=== PATIENT | female | born 1990 | race Caucasian/White ===

== ENCOUNTER 2020-08-30 08:43 | Outpatient (REF) | payer OTHER, SELFPAY | END 2020-08-30 08:44 | disposition home or self-care (01) | LOC: HO.LAB 08:43 | PROVIDERS: PCP Internal Medicine; Referring Provider Internal Medicine; Visit Provider Obstetrics & Gynecology | DX: Z01.419 Encounter for gynecological examination (general) (routine) without abnormal findings (principal); N63.0 Unspecified lump in unspecified breast | CPT/HCPCS: 88142 ==

== ENCOUNTER 2020-09-12 12:11 | Outpatient (REF) | payer OTHER, SELFPAY ==
--- NOTE | 2020-09-12 12:18 | US_ITS ---
EXAMINATION: US DIAGNOSTIC ULTRASOUND BREAST, RIGHT CLINICAL INFORMATION: 29-year-old with chronic stable palpable fullness upper outer right breast dime/rachel size. No known family history breast cancer. No discharge. No prior breast imaging. COMPARISON: None. TECHNIQUE: Ultrasound right breast is targeted to the area of clinical concern. Patient is able to point to the area right upper outer quadrant at time of imaging. Grayscale imaging and color Doppler are performed without and with harmonics. FINDINGS: There is no focal suspicious finding. There is no cystic or solid mass, architectural abnormality, duct ectasia, or edema in the soft tissue planes. Results are discussed with the patient at time of visit. US/US breast RT limited IMPRESSION: Normal study. ASSESSMENT: BI-RADS 1: Negative RECOMMENDATION: 1. Patient should be managed based on the clinical impression. If clinically indicated, further evaluation may be considered with surgical consult. Decision to proceed with biopsy should be based on clinical grounds and degree of clinical concern. 2. Otherwise, routine annual screening mammography, age 40, or earlier as clinical risk factors warrant. This patient's information was entered into a reminder system with a target due date for their next mammogram.
== END 2020-09-12 12:12 | disposition home or self-care (01) ==
LOC: HO.MAMMO 12:11
PROVIDERS: PCP Internal Medicine; Visit Provider Obstetrics & Gynecology
DX: N63.11 Unspecified lump in the right breast, upper outer quadrant (principal)
CPT/HCPCS: 76642; 99202

== ENCOUNTER → 2020-11-13 12:26 | Outpatient (BNVA) | payer OTHER, SELFPAY | PROVIDERS: PCP Internal Medicine; Visit Provider Obstetrics & Gynecology ==

== ENCOUNTER 2020-11-25 13:05 | Emergency (ER) | payer OTHER, SELFPAY ==
[2020-11-25 13:30] VITALS: BP 143/84; PULSE 82; RESP 16; TEMP 36.7; O2SAT 97; BMI 41.9
[2020-11-25 14:15] LABS: Glucose Urine UA NEG (NEG); Leukocyte Esterase Urine NEG (NEG); Nitrite Urine NEG (NEG); Urine Blood NEG (NEG); Urine Ketones NEG (NEG); Urine Protein NEG (NEG-TRACE)
[2020-11-25 14:17] LABS: Appearance Urine CLEAR; Color Urine YELLOW
[2020-11-25 14:18] LABS: UPreg QC Valid YES; Urine Pregnancy NEGATIVE (NEGATIVE)
[2020-11-25 14:29] LABS: RBC Urine 0-2 /HPF (0); Squamous Epithelial Cell Urine 1+ /LPF; WBC Urine 0 /HPF (0-4)
[2020-11-25 15:44] VITALS: BP 129/75; PULSE 76; RESP 18; TEMP 36.8; O2SAT 99
--- NOTE | 2020-11-25 15:44 | CT_ITS ---
EXAMINATION: CT ABDOMEN AND PELVIS WITH CONTRAST CLINICAL INFORMATION: Right lower quadrant pain. Question appendicitis versus ectopic . COMPARISON: CT abdomen 06/03/2012. Ultrasound pelvis earlier today, 11/25/2020. TECHNIQUE: Multidetector volumetric images were obtained from the superior aspect of the liver through the pubic symphysis following administration 85 mL of Omnipaque 350 intravenous contrast. Sagittal and coronal reformatted images were obtained on the technologist's workstation. Oral Contrast: No. This CT examination was performed using dose optimization techniques as appropriate, variously including the following: *Automated exposure control. *Adjustment of mA and/or kV according to patient size (this includes techniques or standardized protocols for targeted exams where dose is matched to indication/reason for exam; i.e. extremities or head). *Use of iterative reconstruction technique. DLP: 922 mGy-cm FINDINGS: LUNG BASES: The visualized lung bases are unremarkable. LIVER, GALLBLADDER, AND BILIARY TREE: No focal lesions. No biliary duct dilatation. Gallbladder appears unremarkable. PANCREAS: Homogeneous enhancement. No inflammatory changes. No ductal dilatation. SPLEEN: Unremarkable. ADRENAL GLANDS: Unremarkable. KIDNEYS AND URETERS: Homogeneous enhancement. No renal or ureteral calculi. No hydronephrosis. Small hypodense left renal midpole lesion, too small to characterize. BLADDER: Unremarkable. GASTROINTESTINAL TRACT: No bowel obstruction. No colonic wall thickening or pericolonic inflammatory changes. Stomach is partially distended. Appendix appears unremarkable. ABDOMINAL WALL: Small fat-containing umbilical hernia. LYMPH NODES: No lymphadenopathy seen. VASCULAR: Normal caliber aorta. Portal vein is enhancing. PELVIC VISCERA: A 3.8 x 3.2 cm left adnexal/ovarian cyst, better evaluated on the pelvic ultrasound obtained today. Trace free fluid in the pelvis. Uterus within normal limits for CT. OSSEOUS STRUCTURES: No acute osseous or suspicious osseous abnormality. CT/CT abdomen pelvis w con IMPRESSION: 1. No acute findings identified in the abdomen or pelvis. Appendix appears unremarkable. Etiology of the patient's symptoms has not been determined by CT. 2. Left ovarian/adnexal 3.8 x 3.2 cm cyst. This is better evaluated by ultrasound earlier today, see the ultrasound report. 3. Small left renal midpole hypodense lesion, too small to characterize, statistically likely to be a cyst.
--- NOTE | 2020-11-25 15:44 | US_ITS ---
US PELVIS COMPLETE WITH DOPPLER CLINICAL INFORMATION: 30-year-old female patient with right lower quadrant abdominal pain. LMP 09/19/2020. COMPARISON: Ultrasound exams of the pelvis in August 2019 and September 2019. TECHNIQUE: Transabdominal and endovaginal imaging was performed. Study performed with grayscale, color and spectral Doppler. FINDINGS: PELVIC ULTRASOUND: The anteverted uterus is of normal size and echogenicity measuring 9.1 x 3.7 x 4.6 cm. A regular homogeneous endometrium is identified measuring 0.8 cm. Secretory phase of the menstrual cycle. The right ovary is normal in size and echo appearance. The right ovary measures 2.5 x 1.7 x 1.8 cm for a volume of 4.0 mL. The left ovary contains an ovoid complex cyst showing a lacelike appearance. This cyst measures 3.7 x 2.7 x 3.4 cm. In toto, the left ovary measures 4.8 x 4.6 x 3.2 cm for a volume of 37 mL. There is a small amount of free fluid adjacent to the left ovary. No free fluid in cul-de-sac. PELVIC DOPPLER: Normal color and spectral Doppler flow is demonstrated in the bilateral ovaries with arterial and venous waveforms identified. US/US transvaginal IMPRESSION: Normal right ovary. A 3.7 cm hemorrhagic cyst in the left ovary.
--- NOTE | 2020-11-25 15:44 | US_ITS ---
US PELVIS COMPLETE WITH DOPPLER CLINICAL INFORMATION: 30-year-old female patient with right lower quadrant abdominal pain. LMP 09/19/2020. COMPARISON: Ultrasound exams of the pelvis in August 2019 and September 2019. TECHNIQUE: Transabdominal and endovaginal imaging was performed. Study performed with grayscale, color and spectral Doppler. FINDINGS: PELVIC ULTRASOUND: The anteverted uterus is of normal size and echogenicity measuring 9.1 x 3.7 x 4.6 cm. A regular homogeneous endometrium is identified measuring 0.8 cm. Secretory phase of the menstrual cycle. The right ovary is normal in size and echo appearance. The right ovary measures 2.5 x 1.7 x 1.8 cm for a volume of 4.0 mL. The left ovary contains an ovoid complex cyst showing a lacelike appearance. This cyst measures 3.7 x 2.7 x 3.4 cm. In toto, the left ovary measures 4.8 x 4.6 x 3.2 cm for a volume of 37 mL. There is a small amount of free fluid adjacent to the left ovary. No free fluid in cul-de-sac. PELVIC DOPPLER: Normal color and spectral Doppler flow is demonstrated in the bilateral ovaries with arterial and venous waveforms identified. US/US pelvic complete IMPRESSION: Normal right ovary. A 3.7 cm hemorrhagic cyst in the left ovary.
--- NOTE | 2020-11-25 15:44 | US_ITS ---
US PELVIS COMPLETE WITH DOPPLER CLINICAL INFORMATION: 30-year-old female patient with right lower quadrant abdominal pain. LMP 09/19/2020. COMPARISON: Ultrasound exams of the pelvis in August 2019 and September 2019. TECHNIQUE: Transabdominal and endovaginal imaging was performed. Study performed with grayscale, color and spectral Doppler. FINDINGS: PELVIC ULTRASOUND: The anteverted uterus is of normal size and echogenicity measuring 9.1 x 3.7 x 4.6 cm. A regular homogeneous endometrium is identified measuring 0.8 cm. Secretory phase of the menstrual cycle. The right ovary is normal in size and echo appearance. The right ovary measures 2.5 x 1.7 x 1.8 cm for a volume of 4.0 mL. The left ovary contains an ovoid complex cyst showing a lacelike appearance. This cyst measures 3.7 x 2.7 x 3.4 cm. In toto, the left ovary measures 4.8 x 4.6 x 3.2 cm for a volume of 37 mL. There is a small amount of free fluid adjacent to the left ovary. No free fluid in cul-de-sac. PELVIC DOPPLER: Normal color and spectral Doppler flow is demonstrated in the bilateral ovaries with arterial and venous waveforms identified. US/US pelvic ovarian doppler IMPRESSION: Normal right ovary. A 3.7 cm hemorrhagic cyst in the left ovary.
--- NOTE | 2020-11-25 16:07 | PC.NURSE ---
US called and wanted to take the patient immediately otherwise oncall staff would need to be called in, patient went to us, will do line and labs when she returns
--- NOTE | 2020-11-25 16:26 | ED.ABDPAIN ---
HPI - Abdominal Pain General Chief Complaint: Abdominal Pain Stated Complaint: abd pain Time Seen by Provider: 11/25/20 15:38 Source: patient Mode of arrival: ambulatory Limitations: no limitations History of Present Illness HPI narrative: 30yoF c PMHx of ectopic c partial Right sided salpingectomy in 08/2019 presenting to the ED c c/o RLQ abd pain since this morning and missed menstrual period since August 2020. She reports she took progesterone therapy because she has not had a menstrual period since late August. She reports she took 5 home test which were negative. Reports that she also had outpatient blood work that someone she works with who is a doctor ordered for her which include a serum quant and was also negative. Denies any fevers, chills, chest pain, shortness of breath, nausea/vomiting, upper abdominal pain, back pain, dysuria, hematuria, abnormal vaginal discharge, diarrhea or constipation or any other symptoms complaints or concerns at this time. MD elicited complaint: abdominal pain Pertinent past history: other (Ectopic c partial Right sided salpingectomy in 08/2019 ) Onset (ago): day(s) (Today) Pain Consistency: constant Location: RLQ Related Data Previous Rx's Medication Instructions Recorded medroxyprogesterone 10 mg tablet 10 mg PO daily 5 Days #5 tab 11/13/20 acetaminophen-codeine 1 tab PO Q8H PRN #10 tab 11/25/20 ibuprofen 800 mg PO Q8H PRN #14 tab 11/25/20 Allergies Allergy/AdvReac Type Severity Reaction Status Date / Time No Known Allergies Allergy Verified 11/25/20 13:41 [No Known Allergies*] Review of Systems Review of Systems Constitutional : No Weight loss, No Fever, No Chills, No Night Sweats, No Fatigue, NoMalaise ENT/Mouth: No ear pain, No sore throat, No Difficulty swallowing Cardiovascular : No Chest Pain, No SOB, No Dyspnea on Exertion, No Orthopnea, NoEdema, No Palpitations Respiratory : No Cough, No Sputum, No Wheezing, No Dyspnea Gastrointestinal : + Abdominal pain, No Nausea, No Vomiting, No Diarrhea, No Hematochezia, No Melena Genitourinary : + Missed menstrual period, No irregular bleeding, No Dysuria, No Urinary Frequency, No Hematuria,No Urinary Incontinence, No Urgency, No Flank Pain Musculoskeletal : No joint pain, No Myalgias, No Joint Swelling Skin : No Skin Lesions, No rash Neuro : No Weakness, No Numbness, No Paresthesias, No Loss of Consciousness, NoDizziness, No Headache Psych : No Social Issues, Heme/Lymph: No Bruising, No Bleeding,No Lymphadenopathy Endocrine : No Polyuria, No Polydipsia, No Temperature Intolerance Yes all other systems are reviewed and are negative Physical Exam Vital Signs: Vital Signs: Last Vital Signs Temp 98.2 F 11/25/20 18:05 Pulse 84 11/25/20 18:05 Resp 18 11/25/20 18:05 BP 118/63 11/25/20 18:05 Pulse Ox 98 11/25/20 18:05 Body Mass Index 41.9 vital signs have been reviewed as normal and appeared to be correct. Blood pressure normal. Heart rate normal. Respiration rate normal. Temperature normal. Oxygen saturation normal. Appearance: Alert. Oriented X3. No acute distress. Head: Normal external exam. Normocephalic. Eyes: PERRLA. EOMI. Conjunctiva and sclera normal. Eyelids normal. ENT: Pharynx normal. Uvula midline. Moist mucous membranes. Neck: Normal inspection. Neck supple. FROM. No adenopathy. No meningeal signs. CVS: Normal heart rate and rhythm. Heart sound normal. No murmurs noted. Pulses normal throughout. Respiratory: No respiratory distress. Painless inspiration. Breath sounds normal. No wheezes/rales/rhonchi noted. Chest nontender. No accessory muscle usage noted or decreased air movement noted. Abdomen: Soft and tenderness to palpation to right lower quadrant/suprapubic area.. Nondistended. No guarding. No rigidity. Bowel sounds normal in all 4 quadrants. No distention noted. No organomegaly noted. No visible injury noted. No rebound tenderness. Negative Rovsing sign. Negative obturator's sign. Negative psoas sign. Negative Scales sign. Back: No CVA tenderness. Full range of motion noted. Skin: Skin warm and dry. Normal skin color. Normal skin turgor. No rashes/lesions/lacerations noted. Extremities: Extremities exhibit normal range of motion. Extremities nontender. Neuro: Oriented X 3. No motor deficit. No sensory deficit. Reflexes normal. Course Course Course Narrative: 15:38pm - 30yoF c PMHx of ectopic c partial Right sided salpingectomy in 08/2019 presenting to the ED c c/o RLQ abd pain since this morning and missed menstrual period since August 2020 - Concern for appy vs ovarian torsion vs ectopic - Pln: Labs, CT scan of abd/pelvis c IV contrast, Ovarian/pelvic/transvaginal US, UA, UHCG then re-evaluate. Reevaluation(s) Reevaluation #1: - white blood cell count [id number] Otherwise all other labs within normal limits. UA within normal limits no evidence of UTI. UHCG negative for . Serum quant negative for . COVID/RSV/flu negative. Pelvic/transvaginal/Doppler ultrasound revealed normal color and Doppler flow to bilateral ovaries therefore not consistent with ovarian torsion. Normal right ovary. 3.7 cm hemorrhagic cyst in the left ovary. Otherwise no other acute processes noted. CT scan of abdomen and pelvis with IV contrast revealed the left ovarian cyst and small left renal cyst therefore I printed out the CT scan and ultrasound results and given to the patient explained to her all her results. Otherwise her appendix was unremarkable and the rest of the CT scan was unremarkable unknown cause of the patient's right lower quadrant abdominal pain. - will DC home with symptomatic treatment along with instructions return if any new or worsening symptoms to follow up with primary care provider. Patient understands agrees the plan. Time: 19:31 MDM - Abdominal Pain Medical Records Attestation: I reviewed the patient's medical records. Lab Data Attestation: I reviewed the patient's lab results. Result diagrams: 11/25/20 16:28 11/25/20 16:28 Labs: Lab Results 11/25/20 11/25/20 11/25/20 Range/Units 13:40 13:40 16:28 WBC 11.7 H (4.8-10.8) X10*3/uL RBC 4.41 (4.20-5.50) X10*6/uL Hgb 13.7 (12.0-16.0) g/dl Hct 40.7 (37-47) % MCV 92.3 (80-98) fL MCH 31.1 (27.0-33.0) pg MCHC 33.7 (31.0-35.0) g/dl RDW 12.0 (11.0-16.0) % Plt Count 264 (160-400) X10*3/uL MPV 9.7 (9.4-12.3) fL Immature Gran % (Auto) 0.2 (0.0-0.4) % Neut % (Auto) 62.1 (45-73) % Lymph % (Auto) 29.7 (20-40) % [place] % (Auto) 6.8 (2-11) % Eos % (Auto) 0.9 (0-4) % Baso % (Auto) 0.3 (0-2) % Lymph # (Auto) 3.5 (1.2-4.9) X10*3/uL [place] # (Auto) 0.8 (0.1-1.2) X10*3/uL Eos # (Auto) 0.1 (0.0-0.4) X10*3/uL Baso # (Auto) 0.0 (0.0-0.2) X10*3/uL Abs Immat Gran (auto) 0.02 (0.00-0.03) X10*3/uL Absolute Neuts (auto) 7.3 (2.0-8.3) X10*3/uL Absolute Nucleated RBC 0.000 (0.0-0.012) X10*3/uL Nucleated RBC % (auto) 0.0 (0.0-0.2) /100WBC PT (10.8-13.0) SEC INR (0.9-1.1) Sodium (135-145) mmol/L Potassium (3.3-5.1) mmol/L Chloride (96-108) mmol/L Carbon Dioxide (22-29) mmol/L Anion Gap (12-20) BUN (9-16) mg/dL Creatinine (0.5-1.4) mg/dL Estim Creat Clear Calc Estimated GFR Random Glucose (60-115) mg/dL Calcium (8.4-10.2) mg/dL Magnesium (1.6-2.6) mg/dL Total Bilirubin (0.0-1.0) mg/dL Direct Bilirubin (0.0-0.5) mg/dL AST (5-31) U/L ALT (0-31) U/L Alkaline Phosphatase (39-117) U/L Total Protein (6.5-8.0) g/dL Albumin (3.5-5.0) g/dL Beta HCG, Quant mIU/mL Urine Color YELLOW Urine Appearance CLEAR Urine pH 7.0 (5.0-8.0) Ur Specific [place] 1.020 (1.005-1.025) Urine Protein NEG (NEG-TRACE) MG/DL Urine Glucose (UA) NEG (NEG) MG/DL Urine Ketones NEG (NEG) MG/DL Urine Blood NEG (NEG) Urine Nitrite NEG (NEG) Ur Leukocyte Esterase NEG (NEG) Urine RBC 0-2 (0) /HPF Urine WBC 0 (0-4) /HPF Ur Squamous Epith Cells 1+ /LPF Urine Bacteria NONE /LPF Urine Test NEGATIVE (NEGATIVE) Coronavirus (PCR) (Negative) Influenza Type A (PCR) (Negative) Influenza Type B (PCR) (Negative) RSV RNA Qual (PCR) (Negative) 11/25/20 11/25/20 11/25/20 Range/Units 16:28 16:28 16:28 WBC (4.8-10.8) X10*3/uL RBC (4.20-5.50) X10*6/uL Hgb (12.0-16.0) g/dl Hct (37-47) % MCV (80-98) fL MCH (27.0-33.0) pg MCHC (31.0-35.0) g/dl RDW (11.0-16.0) % Plt Count (160-400) X10*3/uL MPV (9.4-12.3) fL Immature Gran % (Auto) (0.0-0.4) % Neut % (Auto) (45-73) % Lymph % (Auto) (20-40) % [place] % (Auto) (2-11) % Eos % (Auto) (0-4) % Baso % (Auto) (0-2) % Lymph # (Auto) (1.2-4.9) X10*3/uL [place] # (Auto) (0.1-1.2) X10*3/uL Eos # (Auto) (0.0-0.4) X10*3/uL Baso # (Auto) (0.0-0.2) X10*3/uL Abs Immat Gran (auto) (0.00-0.03) X10*3/uL Absolute Neuts (auto) (2.0-8.3) X10*3/uL Absolute Nucleated RBC (0.0-0.012) X10*3/uL Nucleated RBC % (auto) (0.0-0.2) /100WBC PT 14.5 H (10.8-13.0) SEC INR 1.2 H (0.9-1.1) Sodium 137 (135-145) mmol/L Potassium 3.6 (3.3-5.1) mmol/L Chloride 102 (96-108) mmol/L Carbon Dioxide 26 (22-29) mmol/L Anion Gap 13 (12-20) BUN 12 (9-16) mg/dL Creatinine 0.68 (0.5-1.4) mg/dL Estim Creat Clear Calc 159.5 Estimated GFR > 60 Random Glucose 89 (60-115) mg/dL Calcium 8.9 (8.4-10.2) mg/dL Magnesium 1.9 (1.6-2.6) mg/dL Total Bilirubin 0.6 (0.0-1.0) mg/dL Direct Bilirubin 0.2 (0.0-0.5) mg/dL AST 18 (5-31) U/L ALT 19 (0-31) U/L Alkaline Phosphatase 85 (39-117) U/L Total Protein 7.7 (6.5-8.0) g/dL Albumin 3.9 (3.5-5.0) g/dL Beta HCG, Quant < 2 mIU/mL Urine Color Urine Appearance Urine pH (5.0-8.0) Ur Specific [place] (1.005-1.025) Urine Protein (NEG-TRACE) MG/DL Urine Glucose (UA) (NEG) MG/DL Urine Ketones (NEG) MG/DL Urine Blood (NEG) Urine Nitrite (NEG) Ur Leukocyte Esterase (NEG) Urine RBC (0) /HPF Urine WBC (0-4) /HPF Ur Squamous Epith Cells /LPF Urine Bacteria /LPF Urine Test (NEGATIVE) Coronavirus (PCR) (Negative) Influenza Type A (PCR) (Negative) Influenza Type B (PCR) (Negative) RSV RNA Qual (PCR) (Negative) 11/25/20 Range/Units 16:29 WBC (4.8-10.8) X10*3/uL RBC (4.20-5.50) X10*6/uL Hgb (12.0-16.0) g/dl Hct (37-47) % MCV (80-98) fL MCH (27.0-33.0) pg MCHC (31.0-35.0) g/dl RDW (11.0-16.0) % Plt Count (160-400) X10*3/uL MPV (9.4-12.3) fL Immature Gran % (Auto) (0.0-0.4) % Neut % (Auto) (45-73) % Lymph % (Auto) (20-40) % [place] % (Auto) (2-11) % Eos % (Auto) (0-4) % Baso % (Auto) (0-2) % Lymph # (Auto) (1.2-4.9) X10*3/uL [place] # (Auto) (0.1-1.2) X10*3/uL Eos # (Auto) (0.0-0.4) X10*3/uL Baso # (Auto) (0.0-0.2) X10*3/uL Abs Immat Gran (auto) (0.00-0.03) X10*3/uL Absolute Neuts (auto) (2.0-8.3) X10*3/uL Absolute Nucleated RBC (0.0-0.012) X10*3/uL Nucleated RBC % (auto) (0.0-0.2) /100WBC PT (10.8-13.0) SEC INR (0.9-1.1) Sodium (135-145) mmol/L Potassium (3.3-5.1) mmol/L Chloride (96-108) mmol/L Carbon Dioxide (22-29) mmol/L Anion Gap (12-20) BUN (9-16) mg/dL Creatinine (0.5-1.4) mg/dL Estim Creat Clear Calc Estimated GFR Random Glucose (60-115) mg/dL Calcium (8.4-10.2) mg/dL Magnesium (1.6-2.6) mg/dL Total Bilirubin (0.0-1.0) mg/dL Direct Bilirubin (0.0-0.5) mg/dL AST (5-31) U/L ALT (0-31) U/L Alkaline Phosphatase (39-117) U/L Total Protein (6.5-8.0) g/dL Albumin (3.5-5.0) g/dL Beta HCG, Quant mIU/mL Urine Color Urine Appearance Urine pH (5.0-8.0) Ur Specific [place] (1.005-1.025) Urine Protein (NEG-TRACE) MG/DL Urine Glucose (UA) (NEG) MG/DL Urine Ketones (NEG) MG/DL Urine Blood (NEG) Urine Nitrite (NEG) Ur Leukocyte Esterase (NEG) Urine RBC (0) /HPF Urine WBC (0-4) /HPF Ur Squamous Epith Cells /LPF Urine Bacteria /LPF Urine Test (NEGATIVE) Coronavirus (PCR) NEGATIVE (Negative) Influenza Type A (PCR) NEGATIVE (Negative) Influenza Type B (PCR) NEGATIVE (Negative) RSV RNA Qual (PCR) NEGATIVE (Negative) Imaging Data Ovarian/transvaginal/Doppler ultrasound: Attestation: I personally reviewed and interpreted this imaging study as follows: Radiologist's impression: FINDINGS: PELVIC ULTRASOUND: The anteverted uterus is of normal size and echogenicity measuring 9.1 x 3.7 x 4.6 cm. A regular homogeneous endometrium is identified measuring 0.8 cm. Secretory phase of the menstrual cycle. The right ovary is normal in size and echo appearance. The right ovary measures 2.5 x 1.7 x 1.8 cm for a volume of 4.0 mL. The left ovary contains an ovoid complex cyst showing a lacelike appearance. This cyst measures 3.7 x 2.7 x 3.4 cm. In toto, the left ovary measures 4.8 x 4.6 x 3.2 cm for a volume of 37 mL. There is a small amount of free fluid adjacent to the left ovary. No free fluid in cul-de-sac. PELVIC DOPPLER: Normal color and spectral Doppler flow is demonstrated in the bilateral ovaries with arterial and venous waveforms identified. US/US transvaginal IMPRESSION: Normal right ovary. A 3.7 cm hemorrhagic cyst in the left ovary. ct scan of abd/pelvis c IV : Attestation: I personally reviewed and interpreted this imaging study as follows: Radiologist's impression: FINDINGS: LUNG BASES: The visualized lung bases are unremarkable. LIVER, GALLBLADDER, AND BILIARY TREE: No focal lesions. No biliary duct dilatation. Gallbladder appears unremarkable. PANCREAS: Homogeneous enhancement. No inflammatory changes. No ductal dilatation. SPLEEN: Unremarkable. ADRENAL GLANDS: Unremarkable. KIDNEYS AND URETERS: Homogeneous enhancement. No renal or ureteral calculi. No hydronephrosis. Small hypodense left renal midpole lesion, too small to characterize. BLADDER: Unremarkable. GASTROINTESTINAL TRACT: No bowel obstruction. No colonic wall thickening or pericolonic inflammatory changes. Stomach is partially distended. Appendix appears unremarkable. ABDOMINAL WALL: Small fat-containing umbilical hernia. LYMPH NODES: No lymphadenopathy seen. VASCULAR: Normal caliber aorta. Portal vein is enhancing. PELVIC VISCERA: A 3.8 x 3.2 cm left adnexal/ovarian cyst, better evaluated on the pelvic ultrasound obtained today. Trace free fluid in the pelvis. Uterus within normal limits for CT. OSSEOUS STRUCTURES: No acute osseous or suspicious osseous abnormality. CT/CT abdomen pelvis w con IMPRESSION: 1. No acute findings identified in the abdomen or pelvis. Appendix appears unremarkable. Etiology of the patient's symptoms has not been determined by CT. 2. Left ovarian/adnexal 3.8 x 3.2 cm cyst. This is better evaluated by ultrasound earlier today, see the ultrasound report. 3. Small left renal midpole hypodense lesion, too small to characterize, statistically likely to be a cyst. Critical Care Time Critical Care Time Critical Care Time: Yes Total Critical Care Time: 60 Attestation: I personally attest to this time spent taking care of the patient Discharge Plan Discharge Clinical Impression: Renal cyst, Hemorrhagic cyst of ovary, Amenorrhea Patient Disposition: Home, Self-Care Instructions: Ovarian Cyst (ED), Kidney Cyst (ED), Ruptured Ovarian Cyst (ED), Ovarian Cyst Removal (DC) Prescriptions: New ibuprofen 800 mg tablet 800 mg PO Q8H PRN (Reason: pain) Qty: 14 RF: 0 acetaminophen-codeine 300-30 mg tablet 1 tab PO Q8H PRN (Reason: pain) Qty: 10 RF: 0 No Action medroxyprogesterone [Provera] 10 mg tablet 10 mg PO daily 5 Days Qty: 5 RF: 0 Referrals: Blaine Ascencio MD [Physician] - 2 days (Kidney cyst) Bernice Valdovinos MD [Physician] - 2 days (Ovarian cyst) Stand Alone Forms: Work/School Release Print Language: [place] [facility] Past Medical History Attestation statement: The following information was validated with the patient. Medical History , ectopic, tubal Surgical History History of salpingectomy Family History Family History Maternal Grandmother Uterine cancer Maternal Grandfather Prostate cancer metastatic to bone Social History Social History Alcohol intake: current Alcohol intake frequency: holidays/special occasions only Smoking Status: Never smoker Use of substances other than those prescribed or required for medical reasons: No Advance Directives: No Advance Directives Information Provided: Yes Sexual orientation: Straight/Heterosexual Gender identity: female
[2020-11-25] MEDS: 0.9 % Sodium Chloride 1,000 ML 999 ML IVCONT (16:30)
--- NOTE | 2020-11-25 16:31 | PC.NURSE ---
iv inserted, labs drawn, pt medicated per order, will continue to monitor.
[2020-11-25 16:35] LABS: Basophils Percent Auto 0.3 % (0-2); Eosinophils Absolute Auto 0.1 X10*3/uL (0.0-0.4); Eosinophils Percent Auto 0.9 % (0-4); Hematocrit 40.7 % (37-47); Hemoglobin 13.7 g/dl (12.0-16.0); Imm Gran Abs Auto 0.02 X10*3/uL (0.00-0.03); Imm Gran Pct Auto 0.2 % (0.0-0.4); Lymphocytes Absolute Auto 3.5 X10*3/uL (1.2-4.9); Lymphocytes Percent Auto 29.7 % (20-40); MANUAL DIFF FLAG NO; Mean Corpuscular HGB Conc 33.7 g/dl (31.0-35.0); Mean Corpuscular Hemoglobin 31.1 pg (27.0-33.0); Mean Corpuscular Volume 92.3 fL (80-98); Mean Platelet Volume 9.7 fL (9.4-12.3); Monocytes Absolute Auto 0.8 X10*3/uL (0.1-1.2); Monocytes Percent Auto 6.8 % (2-11); Neutrophils Absolute Auto 7.3 X10*3/uL (2.0-8.3); Neutrophils Percent Auto 62.1 % (45-73); Platelet Count 264 X10*3/uL (160-400); Red Blood Count 4.41 X10*6/uL (4.20-5.50); White Blood Count 11.7 X10*3/uL (4.8-10.8)
[2020-11-25 16:43] LABS: INTERNATIONAL NORM RATIO 1.2 (0.9-1.1); Prothrombin Time 14.5 SEC (10.8-13.0)
[2020-11-25 16:57] LABS: Alanine Aminotransferase 19 U/L (0-31); Albumin Level 3.9 g/dL (3.5-5.0); Alkaline Phosphatase 85 U/L (39-117); Anion Gap 13 (12-20); Aspartate Amino Transferase 18 U/L (5-31); Bilirubin Direct 0.2 mg/dL (0.0-0.5); Bilirubin Total 0.6 mg/dL (0.0-1.0); Blood Urea Nitrogen 12 mg/dL (9-16); Calcium 8.9 mg/dL (8.4-10.2); Carbon Dioxide 26 mmol/L (22-29); Chloride 102 mmol/L (96-108); Creatinine Clr Calc Pharmacy 159.5; Estimated Glomerular Filt Rate > 60; Glucose Random 89 mg/dL (60-115); Magnesium 1.9 mg/dL (1.6-2.6); Potassium 3.6 mmol/L (3.3-5.1); Sodium 137 mmol/L (135-145); Total Protein 7.7 g/dL (6.5-8.0)
[2020-11-25 17:00] LABS: HCG Quantitative < 2 mIU/mL
[2020-11-25 17:14] LABS: Influenza A PCR NEGATIVE (Negative); Influenza B PCR NEGATIVE (Negative); Resp Syncy Virus RNA Qual PCR NEGATIVE (Negative); SARS COV2 PCR INHOUSE NEGATIVE (Negative)
[2020-11-25 18:05] VITALS: BP 118/63; PULSE 84; RESP 18; TEMP 36.8; O2SAT 98
== END 2020-11-25 19:57 | disposition home or self-care (01) ==
PROVIDERS: Physician Assistant Medical; Emergency Provider Emergency Medicine; PCP Internal Medicine
DX: Q61.01 Congenital single renal cyst (principal); N83.202 Unspecified ovarian cyst, left side; N91.2 Amenorrhea, unspecified; Z20.822 Contact with and (suspected) exposure to COVID-19
CPT/HCPCS: 0241U; 36415; 74177; 76830; 76856; 80048; 80076; 81001; 81025; 83735; 84702; 85025; 85610; 93975; 96360; 99284; 99291

== ENCOUNTER → 2020-11-27 10:34 | Outpatient (BNVA) | payer OTHER, SELFPAY | PROVIDERS: PCP Internal Medicine; Visit Provider Obstetrics & Gynecology ==

== ENCOUNTER 2020-12-07 17:22 | Outpatient (REF) | payer OTHER, SELFPAY ==
[2020-12-07 18:37] LABS: HCG Quantitative < 2 mIU/mL
[2020-12-07 19:07] LABS: Thyroid Stimulating Hormone 1.99 uIU/mL (0.32-4.0)
[2020-12-08 07:48] LABS: Prolactin 6.9 ng/mL
[2020-12-08 09:22] LABS: CA-125 8 U/mL (<35)
== END 2020-12-07 17:23 | disposition home or self-care (01) ==
LOC: HO.LAB 17:22
PROVIDERS: PCP Internal Medicine; Visit Provider Obstetrics & Gynecology
DX: N83.299 Other ovarian cyst, unspecified side (principal); N91.2 Amenorrhea, unspecified
CPT/HCPCS: 36415; 84146; 84443; 84702; 86304

== ENCOUNTER 2020-12-13 14:07 | Outpatient (REF) | payer OTHER, SELFPAY ==
[2020-12-13 14:56] LABS: Influenza A PCR NEGATIVE (Negative); Influenza B PCR NEGATIVE (Negative); Resp Syncy Virus RNA Qual PCR NEGATIVE (Negative); SARS COV2 PCR INHOUSE NEGATIVE (Negative)
== END 2020-12-13 14:08 | disposition home or self-care (01) ==
LOC: HO.LNP 14:07
PROVIDERS: Visit Provider Internal Medicine
DX: R05 Cough (principal); Z20.822 Contact with and (suspected) exposure to COVID-19
CPT/HCPCS: 0241U

== ENCOUNTER → 2020-12-20 11:50 | Outpatient (BNVA) | payer OTHER, SELFPAY | PROVIDERS: PCP Internal Medicine; Visit Provider Obstetrics & Gynecology ==

== ENCOUNTER 2021-02-26 10:53 | Outpatient (REF) | payer OTHER, SELFPAY ==
--- NOTE | ~2021-02-26 | US_ITS ---
EXAMINATION: ULTRASOUND PELVIS COMPLETE CLINICAL INFORMATION: Ovarian cyst. COMPARISON: CT abdomen and pelvis with contrast 11/25/2020 TECHNIQUE: Transabdominal and transvaginal ultrasound pelvis is performed. FINDINGS: The uterus is anteverted measuring 9.5 cm in length, 3.8 cm in AP and 5.0 cm in transverse dimension. Endometrial thickness is 0.7 cm. Right ovary measures 3.0 2.1 x 2.1 cm and volume 6.9 mL. Multiple small ovarian follicles. Previously right ovary measured 2.5 x 1.7 x 1.8 cm and volume 4.0 mL. The left ovary measures 2.2 x 2.6 x 2.0 cm and volume 8.7 mL. There are multiple small follicles seen. Previously left ovary measured 4.8 x 4.6 x 3.2 cm and volume 37.0 mL. There is no free fluid in cul-de-sac. US/US pelvic complete IMPRESSION: Unremarkable uterus. Multiple bilateral small ovarian follicles visualized.
--- NOTE | ~2021-02-26 | US_ITS ---
EXAMINATION: ULTRASOUND PELVIS COMPLETE CLINICAL INFORMATION: Ovarian cyst. COMPARISON: CT abdomen and pelvis with contrast 11/25/2020 TECHNIQUE: Transabdominal and transvaginal ultrasound pelvis is performed. FINDINGS: The uterus is anteverted measuring 9.5 cm in length, 3.8 cm in AP and 5.0 cm in transverse dimension. Endometrial thickness is 0.7 cm. Right ovary measures 3.0 2.1 x 2.1 cm and volume 6.9 mL. Multiple small ovarian follicles. Previously right ovary measured 2.5 x 1.7 x 1.8 cm and volume 4.0 mL. The left ovary measures 2.2 x 2.6 x 2.0 cm and volume 8.7 mL. There are multiple small follicles seen. Previously left ovary measured 4.8 x 4.6 x 3.2 cm and volume 37.0 mL. There is no free fluid in cul-de-sac. US/US transvaginal IMPRESSION: Unremarkable uterus. Multiple bilateral small ovarian follicles visualized.
== END 2021-02-26 10:54 | disposition home or self-care (01) ==
LOC: HO.US 10:53
PROVIDERS: Visit Provider Obstetrics & Gynecology
DX: N83.299 Other ovarian cyst, unspecified side (principal)
CPT/HCPCS: 76830; 76856

== ENCOUNTER → 2021-03-06 11:46 | Outpatient (BNVA) | payer OTHER, SELFPAY | PROVIDERS: Visit Provider Obstetrics & Gynecology ==

== ENCOUNTER 2021-05-30 12:42 | Outpatient (REF) | payer OTHER, SELFPAY ==
[2021-05-30 15:35] LABS: Syphilis Screen Nonreactive (Nonreactive)
[2021-05-31 00:37] LABS: CT PCR NOT DETECTED (Not Detect.); NG PCR NOT DETECTED (Not Detect.)
[2021-05-31 08:45] LABS: HBsAGNum1 0.14 S/CO (0.00-0.99); HIV AB/AG Nonreactive (Nonreactive); HIV Num 1 0.04 S/CO (0.00-0.99); Hepatitis B Surface Antigen Negative (Negative); ~HepC Num1 0.23 S/CO (0.00-0.79); ~Hepatitis C Antibody Nonreactive (Nonreactive)
[2021-05-31 09:03] LABS: BV Int Neg Control Negative (Negative); BV Int Pos Control Positive (Positive)
== END 2021-05-30 12:43 | disposition home or self-care (01) ==
LOC: HO.LAB 12:42
PROVIDERS: PCP Internal Medicine; Visit Provider Advanced Practice Midwife
DX: Z30.09 Encounter for other general counseling and advice on contraception (principal); Z20.2 Contact with and (suspected) exposure to infections with a predominantly sexual mode of transmission
CPT/HCPCS: 36415; 86780; 86803; 87340; 87389; 87480; 87491; 87510; 87591; 87660; 99212

== ENCOUNTER 2021-06-03 14:15 | Emergency (ER) | payer OTHER, SELFPAY ==
--- NOTE | ~2021-06-03 | XR_ITS ---
EXAMINATION: XR CHEST CLINICAL INFORMATION: Cough, COVID positive. COMPARISON: None TECHNIQUE: Portable AP upright view of the chest was obtained. FINDINGS: The cardiac silhouette is not enlarged. Mediastinum is normal in appearance. The right lung is clear. On the left side, there could be a subtle opacity in the left retrocardiac region. No pleural effusion. No pneumothorax. XR/XR chest 1V IMPRESSION: Possible subtle opacity in the left lower lobe retrocardiac region which could reflect early changes of covid 19 pneumonia or other infection/atelectasis.
[2021-06-03 17:32] VITALS: BP 109/71; PULSE 91; RESP 24; TEMP 37.1; O2SAT 94; BMI 38.7
--- NOTE | 2021-06-03 17:42 | ED.GENADULT ---
HPI - General Adult General Chief complaint: Dizziness Stated complaint: covid positive not feeling well Time Seen by Provider: 06/03/21 17:41 Source: patient Mode of arrival: ambulatory Limitations: no limitations History of Present Illness HPI narrative: Patient diagnosed with COVID 5 days ago been feeling sick weak tired vomiting multiple times unable to eat much feel dizzy slight cough most significant shortness of breath or fever no abdominal pain no diarrhea Related Data Previous Rx's Medication Instructions Recorded acetaminophen 300 mg-codeine 30 mg 1 tab PO Q8H PRN #10 tab 11/25/20 tablet ibuprofen 800 mg tablet 800 mg PO Q8H PRN #14 tab 11/25/20 desogestrel 0.15 mg-ethinyl 1 tab PO DAILY #28 tab 05/07/21 estradiol 0.03 mg tablet (Apri) Allergies Allergy/AdvReac Type Severity Reaction Status Date / Time No Known Allergies Allergy Verified 05/30/21 11:27 [No Known Allergies*] Review of Systems Review of Systems: Yes all other systems are reviewed and are negative PMFSH Past Medical History Medical History , ectopic, tubal Surgical History History of salpingectomy Family History Family History Maternal Grandmother Uterine cancer Maternal Grandfather Prostate cancer metastatic to bone Social History Social History Alcohol intake: current Alcohol intake frequency: holidays/special occasions only Advance Directives: No Advance Directives Information Provided: No Patient : No Sexual orientation: Straight/Heterosexual Gender identity: female Physical Exam Vital Signs: Vital Signs: Last Vital Signs Temp 98.8 F 06/03/21 18:51 Pulse 78 06/03/21 18:51 Resp 20 06/03/21 18:51 BP 125/78 06/03/21 18:51 Pulse Ox 97 06/03/21 18:51 Body Mass Index 38.7 Appearance: Alert. Oriented X3. No acute distress. Eyes: PERRLA, No Nystagmus ENT: Pharynx normal. Oral Mucosa moist Neck: Normal inspection. Neck supple. CVS: Normal heart rate and rhythm. Pulses normal. Respiratory: No respiratory distress. Equal air entry bilateral, no wheezing/rales/rhonchi Abdomen: Soft and nontender. Bowel sounds are present, no mass palpable, no CVA tenderness Skin: Skin warm and dry. Normal skin color. Normal skin turgor. Extremities: No lower extremity edema. No calf tenderness Neuro: Oriented X 3. Medical Decision Making MDM Narrative Medical decision making narrative: Patient COVID-19 infection no significant abdominal pain came for vomiting lab showed WBC count of 2.9 platelet count 158 K bilirubin 0.4 AST 163 ALT 218. Patient has no abdominal pain or right upper quadrant. Elevated LFT likely from COVID infection. Patient advised to follow with PCP to repeat labs and next 2-3 days Lab Data Lab results reviewed: Yes I reviewed the patient's lab results. Result diagrams: 06/03/21 17:40 06/03/21 17:40 Labs: Lab Results 06/03/21 06/03/21 Range/Units 17:40 17:40 WBC 2.9 L (4.8-10.8) X10*3/uL RBC 4.66 (4.20-5.50) X10*6/uL Hgb 14.4 (12.0-16.0) g/dl Hct 42.0 (37-47) % MCV 90.1 (80-98) fL MCH 30.9 (27.0-33.0) pg MCHC 34.3 (31.0-35.0) g/dl RDW 11.8 (11.0-16.0) % Plt Count 158 L D (160-400) X10*3/uL MPV 10.3 (9.4-12.3) fL Immature Gran % (Auto) 0.0 (0.0-0.4) % Neut % (Auto) 59.0 (45-73) % Lymph % (Auto) 28.5 (20-40) % [place] % (Auto) 12.5 H (2-11) % Eos % (Auto) 0.0 (0-4) % Baso % (Auto) 0.0 (0-2) % Lymph # (Auto) 0.8 L (1.2-4.9) X10*3/uL [place] # (Auto) 0.4 (0.1-1.2) X10*3/uL Eos # (Auto) 0.0 (0.0-0.4) X10*3/uL Baso # (Auto) 0.0 (0.0-0.2) X10*3/uL Abs Immat Gran (auto) 0.00 (0.00-0.03) X10*3/uL Absolute Neuts (auto) 1.7 L (2.0-8.3) X10*3/uL Absolute Nucleated RBC 0.000 (0.0-0.012) X10*3/uL Nucleated RBC % (auto) 0.0 (0.0-0.2) /100WBC Sodium 132 L (135-145) mmol/L Potassium 4.1 (3.3-5.1) mmol/L Chloride 100 (96-108) mmol/L Carbon Dioxide 21 L (22-29) mmol/L Anion Gap 15 (12-20) BUN 9 (9-16) mg/dL Creatinine 0.83 (0.5-1.4) mg/dL Estim Creat Clear Calc 124.9 Estimated GFR > 60 Random Glucose 97 (60-115) mg/dL Calcium 8.2 L D (8.4-10.2) mg/dL Total Bilirubin 0.4 (0.0-1.0) mg/dL AST 163 H (5-31) U/L ALT 218 H (0-31) U/L Alkaline Phosphatase 109 D (39-117) U/L Total Protein 8.0 (6.5-8.0) g/dL Albumin 3.8 (3.5-5.0) g/dL Discharge Plan Discharge Clinical Impression: COVID-19, Elevated LFTs Patient Disposition: Home, Self-Care Instructions: COVID-19 (Coronavirus Disease 2019) (ED) Additional Instructions: Drink plenty of fluids Medicine for nausea as advised You have elevated liver enzymes do not drink alcohol or take Tylenol See her PCP in next 2- 3 days to have recheck your labs Prescriptions: No Action desogestrel-ethinyl estradiol [Apri] 0.15-0.03 mg tablet 1 tab PO DAILY Qty: 28 RF: 2 ibuprofen 800 mg tablet 800 mg PO Q8H PRN (Reason: pain) Qty: 14 RF: 0 acetaminophen-codeine 300-30 mg tablet 1 tab PO Q8H PRN (Reason: pain) Qty: 10 RF: 0 Interventions: ED Discharge Assessment Last Done: 06/03/21 19:24 Discharge Date/Time: 06/03/21 19:25
[2021-06-03 17:46] LABS: MANUAL DIFF FLAG NO
[2021-06-03 18:00] LABS: Hemoglobin 14.4 g/dl (12.0-16.0); Lymphocytes Absolute Auto 0.8 X10*3/uL (1.2-4.9); Lymphocytes Percent Auto 28.5 % (20-40); Mean Corpuscular HGB Conc 34.3 g/dl (31.0-35.0); Mean Corpuscular Hemoglobin 30.9 pg (27.0-33.0); Mean Corpuscular Volume 90.1 fL (80-98); Mean Platelet Volume 10.3 fL (9.4-12.3); Monocytes Absolute Auto 0.4 X10*3/uL (0.1-1.2); Monocytes Percent Auto 12.5 % (2-11); Neutrophils Absolute Auto 1.7 X10*3/uL (2.0-8.3); Platelet Count 158 X10*3/uL (160-400); Red Blood Count 4.66 X10*6/uL (4.20-5.50); Red Cell Distribution Width 11.8 % (11.0-16.0); White Blood Count 2.9 X10*3/uL (4.8-10.8)
[2021-06-03] MEDS: 0.9 % Sodium Chloride 1,000 ML 999 ML IV (18:00)
[2021-06-03 18:11] LABS: Alanine Aminotransferase 218 U/L (0-31); Albumin Level 3.8 g/dL (3.5-5.0); Alkaline Phosphatase 109 U/L (39-117); Anion Gap 15 (12-20); Aspartate Amino Transferase 163 U/L (5-31); Bilirubin Total 0.4 mg/dL (0.0-1.0); Blood Urea Nitrogen 9 mg/dL (9-16); Calcium 8.2 mg/dL (8.4-10.2); Carbon Dioxide 21 mmol/L (22-29); Chloride 100 mmol/L (96-108); Creatinine Clr Calc Pharmacy 124.9; Estimated Glomerular Filt Rate > 60; Glucose Random 97 mg/dL (60-115); Potassium 4.1 mmol/L (3.3-5.1); Sodium 132 mmol/L (135-145)
[2021-06-03] MEDS: dexAMETHasone sod phosphate 4 MG/ML VIAL 6 MG IVPUSH (18:50)
[2021-06-03 18:51] VITALS: BP 125/78; PULSE 78; RESP 20; TEMP 37.1; O2SAT 97
== END 2021-06-03 19:25 | disposition home or self-care (01) ==
PROVIDERS: Emergency Provider Internal Medicine; PCP Internal Medicine
DX: U07.1 COVID-19 (principal); R79.89 Other specified abnormal findings of blood chemistry; R42 Dizziness and giddiness
CPT/HCPCS: 36415; 71045; 80053; 85025; 96361; 96374; 96375; 99284; J1100; J2405

== ENCOUNTER → 2021-06-05 11:25 | Outpatient (BNVA) | payer OTHER, SELFPAY | PROVIDERS: Visit Provider Obstetrics & Gynecology ==

== ENCOUNTER 2021-06-07 11:22 | Inpatient (IN) | payer OTHER, SELFPAY ==
[2021-06-07] VITALS (12 sets, daily range): BP systolic 100–120; BP diastolic 57–80; PULSE 75–111; RESP 15–32; TEMP 37–39.6; O2SAT 89–97; BMI 39.9
--- NOTE | ~2021-06-07 | XR_ITS ---
EXAMINATION: XR CHEST CLINICAL INFORMATION: Weakness COMPARISON: June 03, 2021 TECHNIQUE: AP portable view of the chest was obtained. FINDINGS: Patient has developed bilateral patchy regions of interstitial and airspace disease. No pneumothorax or pleural effusion. Heart normal size. No evidence of pulmonary edema. XR/XR chest 1V IMPRESSION: Development of diffuse bilateral interstitial and airspace disease which may be related to Covid 19 or infectious process such as viral or atypical pneumonitis.
--- NOTE | ~2021-06-07 | CT_ITS ---
EXAMINATION: CT ANGIOGRAM OF THE CHEST WITH AND WITHOUT CONTRAST (CT PULMONARY ANGIOGRAM FOR PE) CLINICAL INFORMATION: Reason for Exam + COVID, SOB, r/o PE COMPARISON: Chest radiographs 06/07/2021, 06/03/2021 TECHNIQUE: Prior to contrast administration, noncontrast localization images were obtained. Subsequently, multidetector volumetric imaging was performed from the thoracic inlet to below the diaphragms following the administration of 65 mL Omnipaque 350 intravenous contrast. Sagittal, coronal, and MIP oblique sagittal reformatted images were obtained on the CT workstation, uploaded to PACS, and reviewed. This CT examination was performed using dose optimization techniques as appropriate, variously including the following: *Automated exposure control *Adjustment of mA and/or kV according to patient size (this includes techniques or standardized protocols for targeted exams where dose is matched to indication/reason for exam; i.e. extremities or head) *Use of iterative reconstruction technique Total exam dose-length product 326 mGy-cm FINDINGS: QUALITY OF STUDY/CONTRAST BOLUS: Satisfactory. PULMONARY ARTERIES: No central or segmental pulmonary emboli. THORACIC AORTA: No aneurysm or dissection. LUNG: There are scattered bilateral patchy geographic shape groundglass and consolidative opacities along the bronchovascular bundles and some peripherally. Involvement is somewhat greater on the left. There is no lobar airspace consolidation. No cavitary lesion. The central airways are clear and there is no endobronchial lesion or bronchiectasis. PLEURA: No pleural effusion or pneumothorax. MEDIASTINUM: Normal heart size. No pericardial effusion. No hilar or mediastinal lymphadenopathy. No evidence of septal bowing or right heart strain. CHEST WALL/AXILLA: No axillary or internal mammary lymphadenopathy. OSSEOUS STRUCTURES: No acute or suspicious osseous abnormality. UPPER ABDOMEN: Unremarkable. No reflux of contrast into the hepatic veins to suggest elevated right heart pressures. CT/CT angio chest PE protocol IMPRESSION: 1. No pulmonary embolism. No thoracic aortic dissection. 2. Bilateral patchy geographic groundglass and consolidative opacities consistent with recent chest radiograph and the history of COVID pneumonia. No bronchiectasis, pneumothorax, cavitary lesion, or effusion. VTE: negative
--- NOTE | 2021-06-07 11:57 | ECG_ITS ---
Test Reason : WEAKNESS Blood Pressure : / mmHG Vent. Rate : 110 BPM Atrial Rate : 110 BPM P-R Int : 122 ms QRS Dur : 078 ms QT Int : 320 ms P-R-T Axes : 028 034 000 degrees QTc Int : 433 ms Sinus tachycardia Otherwise normal ECG No previous ECGs available Referred By: Valorie Hummel Electronically Signed By:RUBIO CHOUDHURY MD
--- NOTE | 2021-06-07 12:03 | ED_ITS ---
HPI - General Adult General Chief complaint: Weakness Stated complaint: covid +, syncope Time Seen by Provider: 06/07/21 11:48 Source: patient and EMS Mode of arrival: EMS Limitations: no limitations History of Present Illness HPI narrative: 30-year-old female currently COVID positive here with complaints of continued fevers, lightheadedness with syncopal episodes at home, cough, vomiting, generalized weakness, shortness of breath. Patient was diagnosed with COVID on May 30. Subsequently she was seen here in the emergency department on June 03 for COVID symptoms(weakness, malaise, vomiting, dizzy, cough). She had labs which showed mildly elevated AST and ALT. She was sent home with recommendations to take ibuprofen and Zofran as needed. Patient tells me continued symptoms. Feels unsafe at home as she lives alone. No chest pain. Complaining of bilateral leg achiness with no calf pain reported. Related Data Home Medications Medication Instructions Recorded Confirmed cholecalciferol (vitamin D3) 25 25 mcg PO DAILY 06/07/21 06/07/21 mcg (1,000 unit) tablet (Vitamin D3) ibuprofen 600 mg tablet 1 tab PO TID PRN 06/07/21 06/07/21 ondansetron HCl 4 mg tablet 4 mg PO Q6H PRN 06/07/21 06/07/21 (Zofran) zinc 50 mg tablet 50 mg PO DAILY 06/07/21 06/07/21 Previous Rx's Medication Instructions Recorded desogestrel 0.15 mg-ethinyl 1 tab PO DAILY #28 tab 06/04/21 estradiol 0.03 mg tablet (Apri) Allergies Allergy/AdvReac Type Severity Reaction Status Date / Time No Known Allergies Allergy Verified 05/30/21 11:27 [No Known Allergies*] Review of Systems Review of Systems: Yes all other systems are reviewed and are negative Constitutional: Constitutional: Reports no additional constitutional compla ints, Reports body ache(s), Reports chills, Denies fever(s), Denies headache(s) and Reports weakness Eyes: Eyes: Reports no additional eye complaints and Denies change in vision ENT: Reports system reviewed and no additional complaints, except as documented, Reports dizziness, Denies headache(s), Denies nasal congestion, Denies nasal discharge and Denies neck pain Cardiovascular: Cardiovascular: Reports no additional cardiovascular complaints, Denies chest pain, Reports syncope, Denies leg edema and Reports dyspnea Respiratory: Respiratory: Reports no additional respiratory complaints, Reports cough and Reports dyspnea Gastrointestinal: Gastrointestinal: Reports no additional gastrointestinal complaints, Denies abdominal pain, Denies diarrhea, Reports nausea and Reports vomiting Genitourinary: Genitourinary: Reports no additional female genitourinary complaints and Denies urinary incontinence Musculoskeletal: Musculoskeletal: Reports no additional musculoskeletal complaints, Denies back pain, Denies arthralgias, Denies joint swelling, Denies neck pain, Denies numbness and Denies tingling Integumentary/Breasts: Skin/Breast: Reports system reviewed and no additional complaints, except as docu and Denies rash Neurologic: Reports system reviewed and no additional complaints, except as documented, Denies Abnormal speech present, Reports dizziness, Reports syncope, Denies headache(s), Denies numbness, Denies tingling and Reports weakness PMFSH Past Medical History Attestation statement: The following information was validated with the patient. Source: old records reviewed and nursing notes reviewed Medical History , ectopic, tubal Surgical History History of salpingectomy Family History Family History Maternal Grandmother Uterine cancer Maternal Grandfather Prostate cancer metastatic to bone Social History Social History Alcohol intake: never Patient Tobacco Use Status: Never used Tobacco Use of substances other than those prescribed or required for medical reasons: No Advance Directives: No Advance Directives Information Provided: No Patient : No Sexual orientation: Straight/Heterosexual Gender identity: female Physical Exam Vital Signs: Vital Signs: Last Vital Signs Temp 98.7 F 06/07/21 15:30 Pulse 83 06/07/21 15:30 Resp 25 H 06/07/21 15:30 BP 103/62 06/07/21 15:30 Pulse Ox 94 06/07/21 15:30 Body Mass Index 39.9 Const: General: cooperative, healthy appearing, comfortable and no acute distress Orientation/consciousness: patient oriented x3 Limitations: no limitations HENMT: Head: Yes normal to inspection Ears: hearing grossly normal bilaterally General nose exam: Normal external nose present Face and sinus: Yes normal facial exam Mouth: Normal oral and palatal mucosa present Throat: Yes posterior oropharynx normal Eyes: General: appearance normal, both eyes and all related structures Pupils: Equal, round and reactive pupils present Neck: Neck: Yes normal visual inspection Chest: Chest palpation & inspection: normal inspection of the chest Resp: Other: Mild tachypnea noted with rate of 22 Effort & Inspection: normal respiratory effort Cardio: Rate: tachycardic Rhythm: regular rhythm Peripheral pulses: Peripheral pulses 2+ throughout GI: Inspection: Yes normal to inspection Palpation (GI): Soft to palpation and nontender Auscultation: normal bowel sounds Back/Spine/Pelvis: Thoracic/Lumbar Spine: thoracic and lumbar spine normal to inspection Skin: General skin exam: no rashes or lesions noted Neuro: General: patient oriented x3, no focal motor deficits and normal sensation to monofilament Cranial nerves: Yes Equal, round and reactive pupils present Cognition (Neuro): normal cognition Speech: No Abnormal speech present Gait exam (Neuro): Normal gait present Motor exam (neuro): 5/5 motor strength present throughout Extrem: General: Yes normal to inspection, Yes no pedal edema and Yes no calf tenderness Course Course Course Narrative: 30-year-old female known COVID positive here with complaints of weakness, dizziness with position changes, syncope at home, vomiting, cough, shortness of breath, fevers. On arrival the patient is febrile with mild tachypnea and tachycardia. This is from a viral infection and not from a bacterial infection. Will check labs, EKG, chest x-ray, covid screen, orthostatic vital signs. Will give NSB, toradol, decadron, antiemetic and re-assess. 1245-CXR c/w with COVID. Elevated d dimer-continued tachypnea, hypoxia and tachycardia. Saturations RA 89% improved to 96% 2LNC. CTA ordered to r/o PE. 1523-CT negative for pulmonary embolism. CT shows bilateral patchy ground-glass opacities consistent with the viral pneumonia. Call out to medicine to discuss for admission 1530-Discussed with Dr Hagen who accepted admission. Medical Decision Making MDM Narrative Medical decision making narrative: Viral pneumonia, pulmonary embolism Medical Records Medical records reviewed: Yes I reviewed the patient's medical records. Lab Data Lab results reviewed: Yes I reviewed the patient's lab results. Result diagrams: 06/07/21 12:22 06/07/21 12:22 Labs: Lab Results 06/07/21 06/07/21 06/07/21 Range/Units 12: 12: 12:22 WBC 3.1 L (4.8-10.8) X10*3/uL RBC 4.61 (4.20-5.50) X10*6/uL Hgb 14.1 (12.0-16.0) g/dl Hct 41.1 (37-47) % MCV 89.2 (80-98) fL MCH 30.6 (27.0-33.0) pg MCHC 34.3 (31.0-35.0) g/dl RDW 11.8 (11.0-16.0) % Plt Count 135 L (160-400) X10*3/uL MPV 10.0 (9.4-12.3) fL Immature Gran % (Auto) 0.3 (0.0-0.4) % Neut % (Auto) 80.3 H (45-73) % Lymph % (Auto) 15.1 L (20-40) % [place] % (Auto) 4.3 (2-11) % Eos % (Auto) 0.0 (0-4) % Baso % (Auto) 0.0 (0-2) % Lymph # (Auto) 0.5 L (1.2-4.9) X10*3/uL [place] # (Auto) 0.1 (0.1-1.2) X10*3/uL Eos # (Auto) 0.0 (0.0-0.4) X10*3/uL Baso # (Auto) 0.0 (0.0-0.2) X10*3/uL Abs Immat Gran (auto) 0.01 (0.00-0.03) X10*3/uL Absolute Neuts (auto) 2.5 (2.0-8.3) X10*3/uL Absolute Nucleated RBC 0.000 (0.0-0.012) X10*3/uL Nucleated RBC % (auto) 0.0 (0.0-0.2) /100WBC Smear Tech's Comments VERIFIED PT (9.9-13.0) SEC INR (0.9-1.1) D-Dimer NG/ML Sodium (135-145) mmol/L Potassium (3.3-5.1) mmol/L Chloride (96-108) mmol/L Carbon Dioxide (22-29) mmol/L Anion Gap (12-20) BUN (9-16) mg/dL Creatinine (0.5-1.4) mg/dL Estim Creat Clear Calc Estimated GFR Random Glucose (60-115) mg/dL Lactic Acid 1.0 (0.5-2.0) mmol/L Calcium (8.4-10.2) mg/dL Magnesium (1.6-2.6) mg/dL Ferritin (10-122) ng/mL Total Bilirubin (0.0-1.0) mg/dL Direct Bilirubin (0.0-0.5) mg/dL AST (5-31) U/L ALT (0-31) U/L Alkaline Phosphatase (39-117) U/L Lactate Dehydrogenase (122-220) U/L Total Creatine Kinase (26-140) U/L Troponin I High Sens < 3.5 (<3.5-17.0) ng/L C-Reactive Protein (< or = 0.50) mg/dL B-Natriuretic Peptide < 10 (<100) pg/mL Total Protein (6.5-8.0) g/dL Albumin (3.5-5.0) g/dL COVID-19 ([facility]) (Negative) COVID-19 Clin Com 06/07/21 06/07/21 06/07/21 Range/Units 12:22 12:22 15:10 WBC (4.8-10.8) X10*3/uL RBC (4.20-5.50) X10*6/uL Hgb (12.0-16.0) g/dl Hct (37-47) % MCV (80-98) fL MCH (27.0-33.0) pg MCHC (31.0-35.0) g/dl RDW (11.0-16.0) % Plt Count (160-400) X10*3/uL MPV (9.4-12.3) fL Immature Gran % (Auto) (0.0-0.4) % Neut % (Auto) (45-73) % Lymph % (Auto) (20-40) % [place] % (Auto) (2-11) % Eos % (Auto) (0-4) % Baso % (Auto) (0-2) % Lymph # (Auto) (1.2-4.9) X10*3/uL [place] # (Auto) (0.1-1.2) X10*3/uL Eos # (Auto) (0.0-0.4) X10*3/uL Baso # (Auto) (0.0-0.2) X10*3/uL Abs Immat Gran (auto) (0.00-0.03) X10*3/uL Absolute Neuts (auto) (2.0-8.3) X10*3/uL Absolute Nucleated RBC (0.0-0.012) X10*3/uL Nucleated RBC % (auto) (0.0-0.2) /100WBC Smear Tech's Comments PT 13.3 H (9.9-13.0) SEC INR 1.2 H (0.9-1.1) D-Dimer 484 NG/ML Sodium 131 L (135-145) mmol/L Potassium 3.6 (3.3-5.1) mmol/L Chloride 98 (96-108) mmol/L Carbon Dioxide 24 (22-29) mmol/L Anion Gap 13 (12-20) BUN 7 L (9-16) mg/dL Creatinine 0.83 (0.5-1.4) mg/dL Estim Creat Clear Calc 126.9 Estimated GFR > 60 Random Glucose 113 (60-115) mg/dL Lactic Acid (0.5-2.0) mmol/L Calcium 7.8 L (8.4-10.2) mg/dL Magnesium 1.9 (1.6-2.6) mg/dL Ferritin 1761 H (10-122) ng/mL Total Bilirubin 0.4 (0.0-1.0) mg/dL Direct Bilirubin 0.3 (0.0-0.5) mg/dL AST 100 H (5-31) U/L ALT 153 H (0-31) U/L Alkaline Phosphatase 88 (39-117) U/L Lactate Dehydrogenase 563 H (122-220) U/L Total Creatine Kinase 59 (26-140) U/L Troponin I High Sens (<3.5-17.0) ng/L C-Reactive Protein 11.51 H (< or = 0.50) mg/dL B-Natriuretic Peptide (<100) pg/mL Total Protein 7.3 (6.5-8.0) g/dL Albumin 3.5 (3.5-5.0) g/dL COVID-19 ([facility]) Negative (Negative) COVID-19 Clin Com See Note Imaging Data Chest x-ray: Attestation: I personally reviewed and interpreted this imaging study as follows: Radiologist's impression: EXAMINATION: XR CHEST CLINICAL INFORMATION: Weakness COMPARISON: June 03, 2021 TECHNIQUE: AP portable view of the chest was obtained. FINDINGS: Patient has developed bilateral patchy regions of interstitial and airspace disease. No pneumothorax or pleural effusion. Heart normal size. No evidence of pulmonary edema. XR/XR chest 1V IMPRESSION: Development of diffuse bilateral interstitial and airspace disease which may be related to Covid 19 or infectious process such as viral or atypical pneumonitis. ? CT scan - chest: Attestation: I personally reviewed and interpreted this imaging study as follows: Radiologist's impression: CT/CT angio chest PE protocol IMPRESSION: ? 1. No pulmonary embolism. No thoracic aortic dissection. ? 2. Bilateral patchy geographic groundglass and consolidative opacities consistent with recent chest radiograph and the history of COVID pneumonia. No bronchiectasis, pneumothorax, cavitary lesion, or effusion. ? VTE: negative ECG Data Attestation: I personally reviewed and interpreted this ECG as follows: Interpretation: Sinus tachycardia with a rate of 110, normal GA, normal QRS, normal QT Discharge Plan Discharge Clinical Impression: COVID-19, Acute respiratory failure with hypoxia Patient Disposition: Admitted As Inpatient
--- NOTE | 2021-06-07 12:27 | PC.NURSE ---
pt O2 stat was 89 for about 10 mins. Put pt on 2 liters per [facility] order.
[2021-06-07 12:33] LABS: Hematocrit 41.1 % (37-47); Hemoglobin 14.1 g/dl (12.0-16.0); Imm Gran Abs Auto 0.01 X10*3/uL (0.00-0.03); Imm Gran Pct Auto 0.3 % (0.0-0.4); Lymphocytes Absolute Auto 0.5 X10*3/uL (1.2-4.9); Lymphocytes Percent Auto 15.1 % (20-40); MANUAL DIFF FLAG SCAN; Mean Corpuscular HGB Conc 34.3 g/dl (31.0-35.0); Mean Corpuscular Hemoglobin 30.6 pg (27.0-33.0); Mean Corpuscular Volume 89.2 fL (80-98); Monocytes Absolute Auto 0.1 X10*3/uL (0.1-1.2); Monocytes Percent Auto 4.3 % (2-11); Neutrophils Absolute Auto 2.5 X10*3/uL (2.0-8.3); Neutrophils Percent Auto 80.3 % (45-73); Platelet Count 135 X10*3/uL (160-400); Red Blood Count 4.61 X10*6/uL (4.20-5.50); Red Cell Distribution Width 11.8 % (11.0-16.0); SCAN SMEAR FLAG 1; White Blood Count 3.1 X10*3/uL (4.8-10.8)
--- NOTE | 2021-06-07 12:33 | PHA.MEDREC ---
Pharmacy Consult ? Medication Reconciliation Pharmacy has completed the medication reconciliation. Patient reports that she vomited after taking her medications this morning. Vilma Johnson, CeliD
[2021-06-07 12:38] LABS: INTERNATIONAL NORM RATIO 1.2 (0.9-1.1); Prothrombin Time 13.3 SEC (9.9-13.0)
[2021-06-07 12:41] LABS: D Dimer 484 NG/ML
[2021-06-07] MEDS: dexAMETHasone sod phosphate 4 MG/ML VIAL 6 MG IVPUSH (12:42)
[2021-06-07] MEDS: 0.9 % Sodium Chloride 1,000 ML 999 ML IV (12:42)
[2021-06-07] MEDS: ondansetron HCL 4 MG/2 ML VIAL IVPUSH (12:42)
[2021-06-07] MEDS: Ketorolac Tromethamine 15 MG/ML VIAL 30 MG IVPUSH (12:43)
[2021-06-07 12:55] LABS: B Type Natriuretic Peptide < 10 pg/mL (<100); Troponin-I High Sensitivity < 3.5 ng/L (<3.5-17.0)
[2021-06-07 13:14] LABS: Alanine Aminotransferase 153 U/L (0-31); Albumin Level 3.5 g/dL (3.5-5.0); Alkaline Phosphatase 88 U/L (39-117); Anion Gap 13 (12-20); Aspartate Amino Transferase 100 U/L (5-31); Bilirubin Direct 0.3 mg/dL (0.0-0.5); Bilirubin Total 0.4 mg/dL (0.0-1.0); Blood Urea Nitrogen 7 mg/dL (9-16); C Reactive Protein 11.51 mg/dL (< or = 0.50); Calcium 7.8 mg/dL (8.4-10.2); Carbon Dioxide 24 mmol/L (22-29); Chloride 98 mmol/L (96-108); Creatinine Clr Calc Pharmacy 126.9; Estimated Glomerular Filt Rate > 60; Glucose Random 113 mg/dL (60-115); Lactate Dehydrogenase 563 U/L (122-220); Magnesium 1.9 mg/dL (1.6-2.6); Potassium 3.6 mmol/L (3.3-5.1); Sodium 131 mmol/L (135-145); Total Protein 7.3 g/dL (6.5-8.0)
[2021-06-07 13:15] LABS: SLIDE REVIEW VERIFIED
[2021-06-07] MEDS: iohexoL 350 MG/ML 100 ML INFUS..BTL IV (14:37)
[2021-06-07 14:43] LABS: Ferritin 1761 ng/mL (10-122)
[2021-06-07 15:31] LABS: COVID-19 Test Negative (Negative)
--- NOTE | 2021-06-07 15:54 | PM.IMHP ---
History of Present Illness Date of Service: 06/07/21 Chief Complaint: Shortness of breath, nausea, vomitting fever in known covid patient 30 year old female with no signficant past medical history, she is NOT vaccinated for covid-19, she was diagnosed with covid bt [facility] on May 30 and was seen in ED on May for mostly GI symptoms and was discharged home. She returns today with fever of up to 103, diarrhea, nause and some vomitting not able keep food down. She has been short of breath and hwer oxygen saturation has been in the 80s on room but presently 97% with supplemental oxygen. CXR, CT shows covid pattern pneumonia. Inflamatory markers (DDimer, LHD, CRP, LFTs) are all high. She is being admitted to due to hypoxia, Review of Systems Review of Systems: Gen: +fever Resp: no sob, no cough CV: no chest, no ELAINE, no leg edema GI: + n/v, no abd pain Neuro: No confusion Yes all other systems are reviewed and are negative [facility] Medical History , ectopic, tubal Family History Maternal Grandmother Uterine cancer Maternal Grandfather Prostate cancer metastatic to bone Surgical History History of salpingectomy Social History Household Members: None Housing: Apartment Do you presently have visiting nurse or other home services: No Alcohol intake: never Patient Tobacco Use Status: Never used Tobacco Use of substances other than those prescribed or required for medical reasons: No Currently Displaying Signs/Symptoms of Drug Intoxication Withdrawal: No Have you been hit, kicked, punched, or otherwise hurt by someone within the past year? If so, by whom?: No Do you feel safe in your current relationship?: Yes Is there a partner from a previous relationship who is making you feel unsafe now?: No Are you made to feel afraid or neglected: No Spiritual Healthcare Practices: none Taoism Healthcare Practices: none Cultural Healthcare Practices: none Advance Directives: No Advance Directives Information Provided: No Do you have thoughts of harming others: None Do you have a plan to hurt others: No Plan Recently lost weight without trying: No Nutrition Risks: No Nutritional Risk Patient : No : No Poor oral hygiene: No service: No Current occupational status: employed Sexual orientation: Straight/Heterosexual Gender identity: female Meds Allergies Allergy/AdvReac Type Severity Reaction Status Date / Time No Known Allergies Allergy Verified 05/30/21 11:27 [No Known Allergies*] Active Medications: Current Medications Generic Name Dose Route Start Last Admin Trade Name Genoveva PRN Reason Stop Dose Admin Pharmacy Consult 1 each 06/07/21 11:57 Consult Rx Perform Med Rec MISCELLANE ONCE PRN Consult order Home Medications Medication Instructions Recorded Confirmed Last Taken Type cholecalciferol (vitamin D3) 25 25 mcg PO DAILY 06/07/21 06/07/21 06/06/21 History mcg (1,000 unit) tablet (Vitamin D3) ibuprofen 600 mg tablet 1 tab PO TID PRN 06/07/21 06/07/21 06/06/21 History ondansetron HCl 4 mg tablet 4 mg PO Q6H PRN 06/07/21 06/07/21 06/06/21 History (Zofran) zinc 50 mg tablet 50 mg PO DAILY 06/07/21 06/07/21 06/06/21 History Physical Exam Vital Signs and Narrative: Vital Signs: Last Vital Signs Temp 98.7 F 06/07/21 15:30 Pulse 83 06/07/21 15:30 Resp 25 H 06/07/21 15:30 BP 103/62 06/07/21 15:30 Pulse Ox 94 06/07/21 15:30 Body Mass Index 39.9 Constitutional Awake and Alert, No apparent distress Neck no obvious abnormalities HEENT-normal looking sclera Cardiovascular RRR, on monitor Respiratory talks in full sentences, no accessory muslce use. Auscultation avoided d/t active covid, fequent cough Gastrointestinal Non tender, Non-distended Skin No rash Neurological Alert & oriented x3 Psychological Appropriate affect Results Labs CBC and Chem 7: 06/07/21 12:22 06/07/21 12:22 Labs: Laboratory Results - last 24 hr 06/07/21 06/07/21 06/07/21 12:21 12:21 12:22 MCV 89.2 MCH 30.6 MCHC 34.3 RDW 11.8 Plt Count 135 L MPV 10.0 Immature Gran % (Auto) 0.3 Neut % (Auto) 80.3 H Lymph % (Auto) 15.1 L Frio % (Auto) 4.3 Eos % (Auto) 0.0 Baso % (Auto) 0.0 Lymph # (Auto) 0.5 L Frio # (Auto) 0.1 Eos # (Auto) 0.0 Baso # (Auto) 0.0 Abs Immat Gran (auto) 0.01 Absolute Neuts (auto) 2.5 Absolute Nucleated RBC 0.000 Nucleated RBC % (auto) 0.0 Smear Tech's Comments VERIFIED PT INR D-Dimer Anion Gap Estim Creat Clear Calc Estimated GFR Random Glucose Lactic Acid 1.0 Calcium Magnesium Ferritin Total Bilirubin Direct Bilirubin AST ALT Alkaline Phosphatase Lactate Dehydrogenase Total Creatine Kinase Troponin I High Sens < 3.5 C-Reactive Protein B-Natriuretic Peptide < 10 Total Protein Albumin COVID-19 ([facility]) COVID-19 Clin Com 06/07/21 06/07/21 06/07/21 12:22 12:22 15:10 MCV MCH MCHC RDW Plt Count MPV Immature Gran % (Auto) Neut % (Auto) Lymph % (Auto) Frio % (Auto) Eos % (Auto) Baso % (Auto) Lymph # (Auto) Frio # (Auto) Eos # (Auto) Baso # (Auto) Abs Immat Gran (auto) Absolute Neuts (auto) Absolute Nucleated RBC Nucleated RBC % (auto) Smear Tech's Comments PT 13.3 H INR 1.2 H D-Dimer 484 Anion Gap 13 Estim Creat Clear Calc 126.9 Estimated GFR > 60 Random Glucose 113 Lactic Acid Calcium 7.8 L Magnesium 1.9 Ferritin 1761 H Total Bilirubin 0.4 Direct Bilirubin 0.3 AST 100 H ALT 153 H Alkaline Phosphatase 88 Lactate Dehydrogenase 563 H Total Creatine Kinase 59 Troponin I High Sens C-Reactive Protein 11.51 H B-Natriuretic Peptide Total Protein 7.3 Albumin 3.5 COVID-19 ([facility]) Negative COVID-19 Clin Com See Note Imaging Radiologist's Impressions: Impressions Chest X-Ray 06/07/21 11:57 IMPRESSION: Development of diffuse bilateral interstitial and airspace disease which may be related to Covid 19 or infectious process such as viral or atypical pneumonitis. Chest CTA 06/07/21 12:48 IMPRESSION: 1. No pulmonary embolism. No thoracic aortic dissection. 2. Bilateral patchy geographic groundglass and consolidative opacities consistent with recent chest radiograph and the history of COVID pneumonia. No bronchiectasis, pneumothorax, cavitary lesion, or effusion. VTE: negative Assessment and Plan (1) COVID-19: Status: Acute (2) Acute respiratory failure with hypoxia: Status: Acute 30/F, [place], diagnosed with covid on May 30 and now worsening with acute hypoxic respiratory failure, Viral Sepsis due to Covid-19 Pneumonia, and GI symptoms of N/V/D, and elevated LFTs likely from covid 19 Plan: Past point of benefit of Remdesevir, will add IV Dexamethasone, Suplemental Oxygen to keep sat around 92, Incentive spirometry, empiric Doxy. IVF, antiemtics for nausea vomitting, follow prognostic labs, LFTs Quality Stroke Does the patient have a stroke diagnosis?: No VTE Prior VTE?: No VTE Risk Level:: Medical - moderate - high VTE Device Contraindication: N/A - Device Ordered VTE Drug Contraindication: N/A - Med Ordered
--- NOTE | 2021-06-07 19:12 | PC.NURSE ---
Report taken from [facility], this RN resuming care. This RN calling [facility] to give report and facilitate transfer to floor. Per staff, the nurse was in a room and will call back. business systems administrator aware as [facility] was called previously and was unable to take report.
--- NOTE | 2021-06-07 19:21 | PC.NURSE ---
report given for admission to [facility]
[2021-06-07] MEDS: Rivaroxaban 10 MG TABLET PO (19:27)
[2021-06-07] MEDS: Doxycycline Hyclate 100 MG in 0.9 % Sodium Chloride 250 ML 166.67 MG IV (19:28)
--- NOTE | 2021-06-07 19:45 | PC.NURSE ---
Pt medicated per DEC. RN at bedside for transport to floor.
[2021-06-07] MEDS: Dextrose 5 % and 0.45 % NaCl 1,000 ML 100 ML IVCONT (20:35)
[2021-06-07 23:02] LABS: Glucose Urine UA NEG (NEG); Leukocyte Esterase Urine NEG (NEG); Nitrite Urine NEG (NEG); UACC Culture Trigger NO; Urine Blood 2+ (NEG); Urine Ketones 15 MG/DL (NEG); Urine Protein TRACE MG/DL (NEG-TRACE)
[2021-06-07 23:03] LABS: Appearance Urine CLEAR; Color Urine YELLOW; UPreg QC Valid YES; Urine Pregnancy NEGATIVE (NEGATIVE)
[2021-06-07 23:14] LABS: UACC CULT YES
[2021-06-07 23:15] LABS: Bacteria Urine TRACE /LPF; Squamous Epithelial Cell Urine TRACE /LPF
[2021-06-08] VITALS: BP 127/72; PULSE 84; RESP 14; TEMP 37.2; O2SAT 92
[2021-06-08] MEDS: 0.9 % Sodium Chloride Flush 3 ML SYRINGE IVFLUSH ×3 (00:36→22:17)
[2021-06-08 04:00] VITALS: BP 127/82; PULSE 75; RESP 15; TEMP 36.9; O2SAT 93
[2021-06-08] MEDS: Doxycycline Hyclate 100 MG in 0.9 % Sodium Chloride 250 ML 166.67 MG IV ×2 (06:39→16:43)
[2021-06-08 07:15] VITALS: BP 127/69; PULSE 80; RESP 18; TEMP 36.6; O2SAT 92
[2021-06-08] MEDS: Dextrose 5 % and 0.45 % NaCl 1,000 ML 100 ML IVCONT (08:15)
[2021-06-08] MEDS: Rivaroxaban 10 MG TABLET PO (08:16)
[2021-06-08] MEDS: dexAMETHasone sod phosphate 4 MG/ML VIAL 6 MG IVPUSH (08:16)
--- NOTE | 2021-06-08 09:02 | MHC.CM.PN ---
pt lives c her mother in their apt. she reports that she is independent in her care. she works a job and drives a car. pt's mother can help her c any needs she may have including a ride home at dc. pt denies the need for vna at dc. dc plan is home no svcs. cm to cont. to follow.
--- NOTE | 2021-06-08 09:28 | P.CDIC_ITS ---
CDI Concurrent Query Service Date: 06/08/21 Documentation Clarification: Please clarify if you are treating a proba ble/suspected/likely or confirmed: Viral Sepsis due to Covid-19 Pneumonia Covid-19 Pneumonia Other, please specify if known or undetermined Provider Response: Other Other Diagnosis: Viral Sepsis due to Covid-19 Pneumonia PLEASE DO NOT DELETE/MODIFY EXISTING CONTENT Additional information is needed in order to code to the highest accuracy and appropriate Severity of Illness (SOI). Please clarify the information noted below in your progress notes and discharge summary. Risk Factors/Clinical Indicators/Treatments Patient has already been dx.for Covid-19 on 05/30 - This admit Temp 103 hypoxia RR24/25 BP 103/62 Tachypnea, Tachycardia, sob, obese, N/V. H&P: This is from a viral infection. CT: Patchy ground glass opacities consistent with viral pneumonia. Doxycycline, IV fluids, Dexamethasone, supplemental oxygen. CDS: Jenniffer Ragsdale CCS, CDIS Contact Number: [phone] Please Review the information above and exercise your independent professional judgment in responding to the query. If you concur, pleas document in the PROGRESS NOTES and DISCHARGE SUMMARY. If you do not agree with the query, please document in the query above. THIS QUERY IS PART OF THE PERMANENT MEDICAL RECORD
[2021-06-08 11:07] VITALS: BP 100/54; PULSE 85; RESP 20; TEMP 37.5; O2SAT 95
--- NOTE | 2021-06-08 11:25 | P.PNIM_ITS ---
Subjective Subjective Date of Service: 06/08/21 Interval History: F/u acute hypoxic respiratory failure d/t covid 19, PNA, viral speis, she feels better, O2 dropped to 85 by pt's report, no more n/v, and fever resolved. Review of Systems Gen: no fever Resp: + sob, + cough CV: no chest, no ELAINE, no leg edema GI: No n/v, no abd pain Neuro: No confusion Physical Exam Vital Signs: Vital Signs: Last Vital Signs Temp 99.5 F 06/08/21 11:07 Pulse 85 06/08/21 11:07 Resp 20 06/08/21 11:07 BP 100/54 L 06/08/21 11:07 Pulse Ox 95 06/08/21 11:07 Body Mass Index 39.9 General: AO X 3, no acute distress Resp: speaking in normal sentesnce, no accessory muscle use CVS:regular reate GI: +BS, NT, no distention Skin: No rash Neuro: motor grossly intact Psych: appropriate affect Objective Data Current Medications Generic Name Dose Route Start Last Admin Trade Name Freq PRN Reason Stop Dose Admin Acetaminophen 650 mg 06/07/21 16:05 Acetaminophen 325 Mg Tablet PO Q6H PRN Pain, Mild (Pain Scale 1-3) Dexamethasone Sodium Phosphate 6 mg 06/08/21 09:00 06/08/21 08:16 Dexamethasone Sod Phosphate 4 Mg/Ml Vial IVPUSH 6 mg DAILY CYNDEE Administration Dextrose/Sodium Chloride 1,000 mls @ 100 mls/hr 06/07/21 16:30 06/08/21 08:15 D51/2ns IVCONT 100 mls/hr .Q10H CYNDEE Administration Doxycycline Hyclate 100 mg/ 250 mls @ 166.67 mls/hr 06/07/21 17:00 06/08/21 08:13 Sodium Chloride IV 06/12/21 06:29 Infused Q12H CYNDEE Infusion Melatonin 6 mg 06/07/21 16:05 Melatonin 3 Mg Tablet PO BEDTIME PRN Insomnia Ondansetron HCl 4 mg 06/07/21 16:05 Ondansetron Hcl 4 Mg/2 Ml Vial IVPUSH Q8H PRN Nausea and Vomiting Pharmacy Consult 1 each 06/07/21 11:57 Consult Rx Perform Med Rec MISCELLANE ONCE PRN Consult order Rivaroxaban 10 mg 06/07/21 16:30 06/08/21 08:16 Rivaroxaban 10 Mg Tablet PO 10 mg DAILY [facility] Administration Sodium Chloride 3 ml 06/08/21 00:00 06/08/21 07:16 0.9 % Sodium Chloride Flush 3 Ml Syringe IVFLUSH Not Given QSHIFT [facility] Labs CBC & Chem 7: 06/07/21 12:22 06/07/21 12:22 Labs: Laboratory Results - last 24 hr 06/07/21 06/07/21 06/07/21 12:21 12:21 12:22 MCV 89.2 MCH 30.6 MCHC 34.3 RDW 11.8 Plt Count 135 L MPV 10.0 Immature Gran % (Auto) 0.3 Neut % (Auto) 80.3 H Lymph % (Auto) 15.1 L Gregg % (Auto) 4.3 Eos % (Auto) 0.0 Baso % (Auto) 0.0 Lymph # (Auto) 0.5 L Gregg # (Auto) 0.1 Eos # (Auto) 0.0 Baso # (Auto) 0.0 Abs Immat Gran (auto) 0.01 Absolute Neuts (auto) 2.5 Absolute Nucleated RBC 0.000 Nucleated RBC % (auto) 0.0 Smear Tech's Comments VERIFIED PT INR D-Dimer Anion Gap Estim Creat Clear Calc Estimated GFR Random Glucose Lactic Acid 1.0 Calcium Magnesium Ferritin Total Bilirubin Direct Bilirubin AST ALT Alkaline Phosphatase Lactate Dehydrogenase Total Creatine Kinase Troponin I High Sens < 3.5 C-Reactive Protein B-Natriuretic Peptide < 10 Total Protein Albumin Urine Color Urine Appearance Urine pH Ur Specific [place] Urine Protein Urine Glucose (UA) Urine Ketones Urine Blood Urine Nitrite Ur Leukocyte Esterase Urine RBC Urine WBC Ur Squamous Epith Cells Urine Bacteria Urine Test COVID-19 ([facility]) COVID-19 Clin Com 06/07/21 06/07/21 06/07/21 12:22 12:22 15:10 MCV MCH MCHC RDW Plt Count MPV Immature Gran % (Auto) Neut % (Auto) Lymph % (Auto) Gregg % (Auto) Eos % (Auto) Baso % (Auto) Lymph # (Auto) Gregg # (Auto) Eos # (Auto) Baso # (Auto) Abs Immat Gran (auto) Absolute Neuts (auto) Absolute Nucleated RBC Nucleated RBC % (auto) Smear Tech's Comments PT 13.3 H INR 1.2 H D-Dimer 484 Anion Gap 13 Estim Creat Clear Calc 126.9 Estimated GFR > 60 Random Glucose 113 Lactic Acid Calcium 7.8 L Magnesium 1.9 Ferritin 1761 H Total Bilirubin 0.4 Direct Bilirubin 0.3 AST 100 H ALT 153 H Alkaline Phosphatase 88 Lactate Dehydrogenase 563 H Total Creatine Kinase 59 Troponin I High Sens C-Reactive Protein 11.51 H B-Natriuretic Peptide Total Protein 7.3 Albumin 3.5 Urine Color Urine Appearance Urine pH Ur Specific [place] Urine Protein Urine Glucose (UA) Urine Ketones Urine Blood Urine Nitrite Ur Leukocyte Esterase Urine RBC Urine WBC Ur Squamous Epith Cells Urine Bacteria Urine Test COVID-19 ([facility]) Negative COVID-19 Clin Com See Note 06/07/21 06/07/21 22:30 22:30 MCV MCH MCHC RDW Plt Count MPV Immature Gran % (Auto) Neut % (Auto) Lymph % (Auto) Gregg % (Auto) Eos % (Auto) Baso % (Auto) Lymph # (Auto) Gregg # (Auto) Eos # (Auto) Baso # (Auto) Abs Immat Gran (auto) Absolute Neuts (auto) Absolute Nucleated RBC Nucleated RBC % (auto) Smear Tech's Comments PT INR D-Dimer Anion Gap Estim Creat Clear Calc Estimated GFR Random Glucose Lactic Acid Calcium Magnesium Ferritin Total Bilirubin Direct Bilirubin AST ALT Alkaline Phosphatase Lactate Dehydrogenase Total Creatine Kinase Troponin I High Sens C-Reactive Protein B-Natriuretic Peptide Total Protein Albumin Urine Color YELLOW Urine Appearance CLEAR Urine pH 6.0 Ur Specific [place] 1.020 Urine Protein TRACE Urine Glucose (UA) NEG Urine Ketones 15 Urine Blood 2+ H Urine Nitrite NEG Ur Leukocyte Esterase NEG Urine RBC 10-14 H Urine WBC 5-9 H Ur Squamous Epith Cells TRACE Urine Bacteria TRACE Urine Test NEGATIVE COVID-19 ([facility]) COVID-19 Clin Com Assessment and Plan (1) Acute respiratory failure with hypoxia: Status: Acute (2) Sepsis due to COVID-19: Status: Acute (3) Pneumonia due to COVID-19 virus: Status: Acute Assessment and Plan: 30/F, [place], diagnosed with covid on May 30 and now worsening with acute hypoxic respiratory failure, Viral Sepsis due to Covid-19 Pneumonia, and GI symptoms of N/V/D, and elevated LFTs likely from covid 19 1/Viral Sepsis due to Covid-19 Pneumonia 2/Acute hypoxic respiratory failure d/t covid 19 -IV Dexamethasone -O2, keep sat around 92% -Incentive spirometry -proning if can tolerate -Empric Doxycyline for 5 days 3/N/V--now resolved. 4/ Elevated LFTs--liekly from covid vs fatty liver, monitor, in fnot improving, then US 5/Obesity--weight loss advise, to avoid general health complications. 6/Xarelto for DVT P Quality Stroke Does the patient have a stroke diagnosis?: No VTE Prior VTE?: No VTE Risk Level:: Medical - moderate - high VTE Device Contraindication: N/A - Device Ordered VTE Drug Contraindication: N/A - Med Ordered
[2021-06-08 11:45] LABS: Procalcitonin 0.09 ng/mL
[2021-06-08 15:17] VITALS: BP 114/64; PULSE 89; RESP 21; TEMP 36.3; O2SAT 96
[2021-06-08 19:27] VITALS: BP 133/83; PULSE 97; RESP 20; TEMP 36.1; O2SAT 94
[2021-06-09] VITALS: BP 128/69; PULSE 105; RESP 16; TEMP 37.6; O2SAT 93
[2021-06-09 04:00] VITALS: BP 127/64; PULSE 100; RESP 16; TEMP 38; O2SAT 92
[2021-06-09] MEDS: Doxycycline Hyclate 100 MG in 0.9 % Sodium Chloride 250 ML 166.67 MG IV (04:16)
[2021-06-09] MEDS: Acetaminophen 325 MG TABLET 650 MG PO (04:26)
[2021-06-09] MEDS: ondansetron HCL 4 MG/2 ML VIAL IVPUSH (04:27)
[2021-06-09 07:51] VITALS: BP 94/55; PULSE 87; RESP 19; TEMP 36.9; O2SAT 91
[2021-06-09] MEDS: Rivaroxaban 10 MG TABLET PO (08:29)
[2021-06-09] MEDS: 0.9 % Sodium Chloride Flush 3 ML SYRINGE IVFLUSH (08:29)
[2021-06-09] MEDS: dexAMETHasone sod phosphate 4 MG/ML VIAL 6 MG IVPUSH (08:29)
[2021-06-09 08:37] VITALS: BP 120/68; O2SAT 91
[2021-06-09 11:10] VITALS: BP 104/59; PULSE 92; RESP 18; TEMP 36.9; O2SAT 93
--- NOTE | 2021-06-09 12:35 | P.DS_ITS ---
DS: Providers Provider Date of Service: 06/09/21 Date of admission: 06/07/21 16:05 Primary care physician: Edgar Choudhury MD DS: Diagnosis Discharge Diagnosis (1) Acute respiratory failure with hypoxia: Status: Acute (2) Sepsis due to COVID-19: Status: Acute (3) Pneumonia due to COVID-19 virus: Status: Acute DS: Medications Discharge Medications Home Medications: Home Medications Medication Instructions Recorded Confirmed cholecalciferol (vitamin D3) 25 25 mcg PO DAILY 06/07/21 06/07/21 mcg (1,000 unit) tablet (Vitamin D3) ondansetron HCl 4 mg tablet 4 mg PO Q6H PRN 06/07/21 06/07/21 (Zofran) zinc 50 mg tablet 50 mg PO DAILY 06/07/21 06/07/21 Previous Rx's Medication Instructions Recorded desogestrel 0.15 mg-ethinyl 1 tab PO DAILY #28 tab 06/04/21 estradiol 0.03 mg tablet (Apri) cefuroxime axetil 500 mg tablet 500 mg PO Q12H 5 Days #10 tab 06/09/21 dexamethasone 6 mg tablet 6 mg PO DAILY #7 tab 06/09/21 DS: Summary Hospital Course Hospital Course: History of presenting illness Date of Service: 06/07/21 Chief Complaint: Shortness of breath, nausea, vomitting fever in known covid patient 30 year old female with no signficant past medical history, she is NOT vaccinated for covid-19, she was diagnosed with covid bt [facility] on May 30 and was seen in ED on May for mostly GI symptoms and was discharged home. She returns today with fever of up to 103, diarrhea, nause and some vomitting not able keep food down. She has been short of breath and hwer oxygen saturation has been in the 80s on room but presently 97% with supplemental oxygen. CXR,? CT shows covid pattern pneumonia. Inflamatory markers (DDimer, LHD, CRP, LFTs) are all high.? She is being admitted to due to hypoxia, Hospital course , [place], diagnosed with covid on May 30 and now worsening with acute hypo xic respiratory failure, Viral Sepsis due to Covid-19 Pneumonia, and GI symptoms of N/V/D, and elevated LFTs likely from covid 19 Hospital course Patient admitted to isolation unit with diagnosis of Viral Sepsis due to Covid- 19 Pneumonia and Acute hypoxic respiratory failure d/t covid 19, patient treated with IV Dexamethasone, empiric IV antibiotic, oxygen support and analgesics patient responded well to above treatment, currently oxygenation is stable 92- 93% on room air, therefore being discharged home to finish a total 10 day course of dexamethasone and 7 day course of antibiotic, patient also noted to have elevated LFTs likely due to COVID-19 trending down she has no nausea vomiting or abdominal discomfort tolerating diet she has been recommended to rest and drink plenty of fluids in regard to obesity she has been recommended to follow low- calorie diet, patient repeat COVID 19 test on admission was negative. Time Spent with Patient Time attestation: Total time spent providing and/or coordinating discharge services: Discharge coordination time: Greater than 30 minutes Quality: Stroke Does the patient have a stroke diagnosis?: No Physical Exam Vital Signs: Vital Signs: Last Vital Signs Temp 98.5 F 06/09/21 11:10 Pulse 92 06/09/21 11:10 Resp 18 06/09/21 11:10 BP 104/59 L 06/09/21 11:10 Pulse Ox 93 06/09/21 11:10 Body Mass Index 39.9 General no acute distress. Neck supple no JVD. CVS regular rate rhythm, Respiratory lungs coarse breath sound, no respiratory distress, no wheeze, no rhonchi. Gastrointestinal abdomen soft, nontender, bowel sounds audible, no guarding , no rigidity. Extremities no edema. Neuro nonfocal Skin no rash DS: Data Data Completed and Pending Labs on day of discharge: Preliminary micro results at discharge 06/07/21 00:00 Urine Culture - Preliminary Urine clean catch - Urine marquez top Gram negative iwona 06/07/21 12:24 Blood Culture - Preliminary Blood - Venous No growth after 24 hours. Discharge Plan Discharge Patient Disposition: Home, Self-Care Discharge Diagnosis: Viral sepsis due to COVID-19 Acute hypoxic respiratory failure due to COVID-19 Referrals: Edgar Choudhury MD [Primary Care Provider] - 1 Week Discharge Medications: New dexamethasone 6 mg tablet 6 mg PO DAILY Qty: 7 RF: 0 cefuroxime axetil 500 mg tablet 500 mg PO Q12H 5 Days Qty: 10 RF: 0 Continued desogestrel-ethinyl estradiol [Apri] 0.15-0.03 mg tablet 1 tab PO DAILY Qty: 28 RF: 0 ondansetron HCl [Zofran] 4 mg Tablet 4 mg PO Q6H PRN (Reason: Nausea) RF: 0 zinc 50 mg Tablet 50 mg PO DAILY RF: 0 cholecalciferol (vitamin D3) [Vitamin D3] 25 mcg (1,000 unit) Tablet 25 mcg PO DAILY RF: 0 Discontinued ibuprofen 600 mg tablet 1 tab PO TID PRN (Reason: Pain) RF: 0 Discharge Orders: Discharge Order (Routine); Ordered 06/09/21 Ordered By: Alphonso Rehman Diet: advance to usual diet Activity on Discharge: As tolerated Stand Alone Forms: Patient Portal Discharge page Care Plan Goals: COVID-19 infection, take Decadron and antibiotic as prescribed, wear mask in public Health Concerns: Rest, drink plenty of fluids Plan of Treatment: Outpatient follow-up with PCP in 1 week Assessment: as above
--- NOTE | 2021-06-09 12:40 | MHC.CM.PN ---
Patient has been medically cleared for dc to home today, no services.
[2021-06-09] MEDS: cefTRIAXone sodium 1 GM in 0.9 % Sodium Chloride 50 ML IV (12:44)
== END 2021-06-09 15:13 | disposition home or self-care (01) | DRG 720 ==
LOC: HO.ED 11:48 → HO.EDOVER 16:34 → HO.IMC 17:37
PROVIDERS: Nurse Practitioner Family; Admitting Provider Internal Medicine; Emergency Provider Emergency Medicine; PCP Internal Medicine; Visit Provider Hospitalist
DX: A41.89 Other specified sepsis (principal); U07.1 COVID-19; J96.01 Acute respiratory failure with hypoxia; E66.9 Obesity, unspecified; Z68.39 Body mass index [BMI] 39.0-39.9, adult; J12.82 Pneumonia due to coronavirus disease 2019
CPT/HCPCS: 36415; 71045; 71275; 80048; 80076; 81001; 81003; 81025; 82550; 82728; 83605; 83615; 83735; 83880; 84145; 84484; 85025; 85379; 85610; 86140; 87040; 87086; 87088; 87147; 87186; 87205; 87635; 93005; 96361; 96374; 96375; 99285; J0696; J1100; J1885; J2405; Q9967

== ENCOUNTER 2021-12-05 08:14 | Outpatient (REF) | payer OTHER, SELFPAY ==
[2021-12-05 11:37] LABS: CT PCR NOT DETECTED (Not Detect.); NG PCR NOT DETECTED (Not Detect.)
[2021-12-06 09:19] LABS: BV Int Neg Control Negative (Negative); BV Int Pos Control Positive (Positive)
[2021-12-06 10:27] LABS: HBsAGNum1 0.19 S/CO (0.00-0.99); Hepatitis B Surface Antigen Negative (Negative); ~HepC Num1 0.15 S/CO (0.00-0.79); ~Hepatitis C Antibody Nonreactive (Nonreactive)
[2021-12-06 11:20] LABS: HIV AB/AG Nonreactive (Nonreactive); HIV Num 1 0.06 S/CO (0.00-0.99)
[2021-12-07 08:32] LABS: Syphilis Screen Nonreactive (Nonreactive)
== END 2021-12-05 08:15 | disposition home or self-care (01) ==
LOC: HO.LAB 08:14
PROVIDERS: PCP Internal Medicine; Visit Provider Obstetrics & Gynecology
DX: Z01.419 Encounter for gynecological examination (general) (routine) without abnormal findings (principal); Z11.3 Encounter for screening for infections with a predominantly sexual mode of transmission; Z20.2 Contact with and (suspected) exposure to infections with a predominantly sexual mode of transmission
CPT/HCPCS: 36415; 86780; 86803; 87340; 87389; 87480; 87491; 87510; 87591; 87660

== ENCOUNTER 2022-08-19 16:24 | Outpatient (REF) | payer OTHER, SELFPAY ==
[2022-08-19 17:09] LABS: Influenza A PCR NEGATIVE (Negative); Influenza B PCR NEGATIVE (Negative); Resp Syncy Virus RNA Qual PCR NEGATIVE (Negative); SARS COV2 PCR INHOUSE NEGATIVE (Negative)
== END 2022-08-19 16:25 | disposition home or self-care (01) ==
LOC: HO.LNP 16:24
PROVIDERS: Visit Provider Internal Medicine
DX: Z20.822 Contact with and (suspected) exposure to COVID-19 (principal); R05.9 Cough, unspecified; J02.9 Acute pharyngitis, unspecified
CPT/HCPCS: 0241U

== ENCOUNTER 2023-02-01 20:03 | Emergency (ER) | payer OTHER, SELFPAY ==
[2023-02-01 20:09] VITALS: BP 132/74; PULSE 101; O2SAT 96
[2023-02-01 20:13] VITALS: BP 139/89; PULSE 104; RESP 18; TEMP 37.8; O2SAT 95; BMI 38.7
--- NOTE | 2023-02-01 20:13 | ED_ITS ---
HPI - General Adult General Chief complaint: Nausea/Vomiting/Diarrhea <HU Vasquez - Last Filed: 02/01/23 20:13> Stated complaint: NOT FEELING WELL <HU Vasquez - Last Filed: 02/01/23 20:13> Time Seen by Provider: 02/01/23 22:18 <HU Vasquez - Last Filed: 02/01/23 20:13> Source: patient <Theresa Abernathy MD - Last Filed: 02/02/23 00:05> Mode of arrival: EMS <Theresa Abernathy MD - Last Filed: 02/02/23 00:05> History of Present Illness HPI narrative: 32-year-old female without significant past medical history presents with concerns for viral infection via EMS. Patient states that she has had symptoms since that include body aches, fevers, nausea with some isolated episodes of vomiting as well as few episodes of loose stools. <Theresa Abernathy MD - Last Filed: 02/02/23 00:05> Related Data Home medications: Home Medications Medication Instructions Recorded Confirmed cholecalciferol (vitamin D3) 25 25 mcg PO DAILY 06/07/21 06/07/21 mcg (1,000 unit) tablet (Vitamin D3) ondansetron HCl 4 mg tablet 4 mg PO Q6H PRN Nausea 06/07/21 06/07/21 (Zofran) zinc 50 mg tablet 50 mg PO DAILY 06/07/21 06/07/21 Previous Rx's Medication Instructions Recorded cefuroxime axetil 500 mg tablet 500 mg PO Q12H 5 days #10 tabs 06/09/21 dexamethasone 6 mg tablet 6 mg PO DAILY #7 tabs 06/09/21 desogestrel 0.15 mg-ethinyl 1 tab PO DAILY #28 tabs 11/05/22 estradiol 0.03 mg tablet (Apri) ondansetron HCl 4 mg tablet 4 mg PO Q8H PRN nausea and 02/02/23 vomiting 4 days #14 tabs <HU Vasquez - Last Filed: 02/01/23 20:13> Allergies/adverse reactions: Allergies Allergy/AdvReac Type Severity Reaction Status Date / Time No Known Allergies Allergy Verified 02/01/23 20:12 [No Known Allergies*] <HU Vasquez - Last Filed: 02/01/23 20:13> Review of Systems Review of Systems: Pertinent positives and negatives as stated in HPI <Theresa Abernathy MD - Last Filed: 02/02/23 00:05> PMFSH Past Medical History Source: nursing notes reviewed <Theresa Abernathy MD - Last Filed: 02/02/23 00:05> Medical History: Medical History , ectopic, tubal <HU Vasquez - Last Filed: 02/01/23 20:13> Surgical History: Surgical History History of salpingectomy <HU Vasquez - Last Filed: 02/01/23 20:13> Family History Family History: Family History Maternal Grandmother Uterine cancer Maternal Grandfather Prostate cancer metastatic to bone <HU Vasquez - Last Filed: 02/01/23 20:13> Social History Social History: Social History Household Members: None Housing: Apartment Do you presently have visiting nurse or other home services: No Alcohol intake: never Patient Tobacco Use Status: Never used Tobacco Advance Directives: No Advance Directives Information Provided: No service: No Current occupational status: employed Sexual orientation: Straight/Heterosexual Gender identity: Female <HU Vasquez - Last Filed: 02/01/23 20:13> Physical Exam ED Vital Signs: Vital Signs - 24 hr 02/01/23 20:13 02/01/23 23:24 Temperature 100.1 F Pulse Rate 104 H 87 Respiratory Rate 18 16 Blood Pressure 139/89 132/79 Pulse Oximetry 95 95 Oxygen Delivery Method Room Air Room Air BMI result Body Mass Index 38.7 <HU Vasquez - Last Filed: 02/01/23 20:13> Vital Signs - 24 hr 02/01/23 20:13 02/01/23 23:24 Temperature 100.1 F Pulse Rate 104 H 87 Respiratory Rate 18 16 Blood Pressure 139/89 132/79 Pulse Oximetry 95 95 Oxygen Delivery Method Room Air Room Air BMI result Body Mass Index 38.7 VITAL SIGNS: Reviewed. GENERAL: Well developed, well nourished, in no acute distress. HEAD: Normocephalic/atraumatic EYES: PERRLA, EOMI EARS: Ext canals without abnormality, TMs non-bulging and non-erythematous NOSE: Nares patent bilateral OROPHARYNX: no oral lesions noted, posterior pharynx clear and non-erythematous without noted tonsillar enlargement/erythema/exudates NECK: Supple, no adenopathy LUNGS: Normal breath sounds. No adventitious sounds or accessory muscle use. SpO2<95> CARDIOVASCULAR: Regular rate and rhythm without noted murmurs ABDOMEN: Soft, mild ttp, non-distended with bowel sounds. MUSCULOSKELETAL: No tenderness, deformities, or effusions noted on gross inspection. EXTREMITIES: No cyanosis, clubbing or edema. SKIN: Inspection of the skin reveals no rashes NEUROLOGIC: Alert and oriented x 4. Strength and sensation to light touch were grossly intact x 4. <Theresa Abernathy MD - Last Filed: 02/02/23 00:05> Course Course Course Narrative: RME performed by Kendra Wells PA-C. Patient is a 32 year old assigned female at presenting to the emergency department with nausea and vomiting. Labs and swabs ordered. Patient placed back in the waiting room pending room availability and results. <HU Vasquez - Last Filed: 02/01/23 20:13> Medications Administered Discontinued Medications Generic Name Dose Route Start Last Admin Trade Name Freq PRN Reason Stop Dose Admin Ondansetron HCl 4 mg 02/01/23 21:55 02/01/23 21:58 Ondansetron Odt 4 Mg Tab.Rapdis TRANSLINGU 02/01/23 21:56 4 mg ONCE ONE Administration Ondansetron HCl 4 mg 02/01/23 23:15 02/01/23 23:24 Ondansetron Odt 4 Mg Tab.Rapdis TRANSLINGU 02/01/23 23:16 4 mg ONCE ONE Administration <HU Vasquez - Last Filed: 02/01/23 20:13> Medications Administered Discontinued Medications Generic Name Dose Route Start Last Admin Trade Name Freq PRN Reason Stop Dose Admin Ondansetron HCl 4 mg 02/01/23 21:55 02/01/23 21:58 Ondansetron Odt 4 Mg Tab.Rapdis TRANSLINGU 02/01/23 21:56 4 mg ONCE ONE Administration Ondansetron HCl 4 mg 02/01/23 23:15 02/01/23 23:24 Ondansetron Odt 4 Mg Tab.Rapdis TRANSLINGU 02/01/23 23:16 4 mg ONCE ONE Administration <Theresa Abernathy MD - Last Filed: 02/02/23 00:05> Medical Decision Making Medical Decision Making MDM Narrative: 32-year-old female with history and clinical presentation consistent with viral syndrome. I reviewed all investigations my interpretation is viral syndrome, gastroenteritis. Patient received antiemetics and will fluid challenge. <Theresa Abernathy MD - Last Filed: 02/02/23 00:05> Differential Diagnosis Please see the discussion above <Theresa Abernathy MD - Last Filed: 02/02/23 00:05> Lab Data Please see the discussion above <Theresa Abernathy MD - Last Filed: 02/02/23 00:05> Result Diagrams: 02/01/23 20:27 02/01/23 20:27 <HU Vasquez - Last Filed: 02/01/23 20:13> Labs: Lab Results 02/01/23 02/01/23 02/01/23 Range/Units 20:27 20:27 20:27 WBC 6.2 (4.8-10.8) X10*3/uL RBC 5.20 (4.20-5.50) X10*6/uL Hgb 16.1 H (12.0-16.0) g/dl Hct 46.0 (37.0-47.0) % MCV 88.5 (80.0-98.0) fL MCH 31.0 (27.0-33.0) pg MCHC 35.0 (31.0-35.0) g/dl RDW 11.9 (11.0-16.0) % Plt Count 228 (160-400) X10*3/uL MPV 10.0 (9.4-12.3) fL Immature Gran % (Auto) 0.3 (0.0-0.4) % Neut % (Auto) 75.8 H (45-73) % Lymph % (Auto) 14.1 L (20-40) % [place] % (Auto) 9.4 (2-11) % Eos % (Auto) 0.2 (0-4) % Baso % (Auto) 0.2 (0-2) % Lymph # (Auto) 0.9 L (1.2-4.9) X10*3/uL [place] # (Auto) 0.6 (0.1-1.2) X10*3/uL Eos # (Auto) 0.0 (0.0-0.4) X10*3/uL Baso # (Auto) 0.0 (0.0-0.2) X10*3/uL Abs Immat Gran (auto) 0.02 (0.00-0.03) X10*3/uL Absolute Neuts (auto) 4.7 (2.0-8.3) x10*3/uL Absolute Nucleated RBC 0.000 (0.0-0.012) X10*3/uL Nucleated RBC % (auto) 0.0 (0.0-0.2) /100WBC Sodium 138 (135-145) mmol/L Potassium 4.2 (3.3-5.1) mmol/L Chloride 105 (96-108) mmol/L Carbon Dioxide 21 L (22-29) mmol/L Anion Gap 16 (12-20) BUN 7 L (9-16) mg/dL Creatinine 0.76 (0.5-1.4) mg/dL Estim Creat Clear Calc 134.0 Estimated GFR > 60 Random Glucose 105 (60-115) mg/dL Calcium 8.7 D (8.4-10.2) mg/dL Magnesium 2.0 (1.6-2.6) mg/dL Total Bilirubin 0.4 (0.0-1.0) mg/dL AST 28 (5-31) U/L ALT 41 H (0-31) U/L Alkaline Phosphatase 105 (39-117) U/L Total Protein 7.7 (6.5-8.0) g/dL Albumin 3.8 (3.5-5.0) g/dL Beta HCG, Quant mIU/mL Urine Color Urine Appearance Urine pH (5.0-9.0) Ur Specific [place] (1.005-1.025) Urine Protein (Neg-Trace) mg/dL Urine Glucose (UA) (Negative) mg/dL Urine Ketones (Negative) mg/dL Urine Blood (Negative) Urine Nitrite (Negative) Ur Leukocyte Esterase (Negative) Urine RBC (0-2) /HPF Urine WBC (0-5) /HPF Ur Squamous Epith Cells (0-2) /HPF Urine Bacteria (None Seen) Hyaline Casts (0-2) /LPF COVID-19 ([facility]) (Negative) COVID-19 Clin Com Influenza Type A ([facility]) Cancelled Influenza Type B ([facility]) Cancelled Influenza A & B Note Cancelled 02/01/23 02/01/23 02/01/23 Range/Units 20:27 20:27 23:36 WBC (4.8-10.8) X10*3/uL RBC (4.20-5.50) X10*6/uL Hgb (12.0-16.0) g/dl Hct (37.0-47.0) % MCV (80.0-98.0) fL MCH (27.0-33.0) pg MCHC (31.0-35.0) g/dl RDW (11.0-16.0) % Plt Count (160-400) X10*3/uL MPV (9.4-12.3) fL Immature Gran % (Auto) (0.0-0.4) % Neut % (Auto) (45-73) % Lymph % (Auto) (20-40) % [place] % (Auto) (2-11) % Eos % (Auto) (0-4) % Baso % (Auto) (0-2) % Lymph # (Auto) (1.2-4.9) X10*3/uL [place] # (Auto) (0.1-1.2) X10*3/uL Eos # (Auto) (0.0-0.4) X10*3/uL Baso # (Auto) (0.0-0.2) X10*3/uL Abs Immat Gran (auto) (0.00-0.03) X10*3/uL Absolute Neuts (auto) (2.0-8.3) x10*3/uL Absolute Nucleated RBC (0.0-0.012) X10*3/uL Nucleated RBC % (auto) (0.0-0.2) /100WBC Sodium (135-145) mmol/L Potassium (3.3-5.1) mmol/L Chloride (96-108) mmol/L Carbon Dioxide (22-29) mmol/L Anion Gap (12-20) BUN (9-16) mg/dL Creatinine (0.5-1.4) mg/dL Estim Creat Clear Calc Estimated GFR Random Glucose (60-115) mg/dL Calcium (8.4-10.2) mg/dL Magnesium (1.6-2.6) mg/dL Total Bilirubin (0.0-1.0) mg/dL AST (5-31) U/L ALT (0-31) U/L Alkaline Phosphatase (39-117) U/L Total Protein (6.5-8.0) g/dL Albumin (3.5-5.0) g/dL Beta HCG, Quant < 2 mIU/mL Urine Color Dark Yellow Urine Appearance Cloudy Urine pH 6.0 (5.0-9.0) Ur Specific [place] >= 1.030 H (1.005-1.025) Urine Protein 30 (1+) H (Neg-Trace) mg/dL Urine Glucose (UA) Negative (Negative) mg/dL Urine Ketones 15 (Negative) mg/dL Urine Blood Small (1+) H (Negative) Urine Nitrite Negative (Negative) Ur Leukocyte Esterase Trace H (Negative) Urine RBC 6-10 H (0-2) /HPF Urine WBC 0-5 (0-5) /HPF Ur Squamous Epith Cells 6-10 (0-2) /HPF Urine Bacteria None Seen (None Seen) Hyaline Casts 6-10 (0-2) /LPF COVID-19 ([facility]) Negative (Negative) COVID-19 Clin Com See Note Influenza Type A ([facility]) Influenza Type B ([facility]) Influenza A & B Note <HU Vasquez - Last Filed: 02/01/23 20:13> Lab Results 02/01/23 02/01/23 02/01/23 Range/Units 20:27 20:27 20:27 WBC 6.2 (4.8-10.8) X10*3/uL RBC 5.20 (4.20-5.50) X10*6/uL Hgb 16.1 H (12.0-16.0) g/dl Hct 46.0 (37.0-47.0) % MCV 88.5 (80.0-98.0) fL MCH 31.0 (27.0-33.0) pg MCHC 35.0 (31.0-35.0) g/dl RDW 11.9 (11.0-16.0) % Plt Count 228 (160-400) X10*3/uL MPV 10.0 (9.4-12.3) fL Immature Gran % (Auto) 0.3 (0.0-0.4) % Neut % (Auto) 75.8 H (45-73) % Lymph % (Auto) 14.1 L (20-40) % [place] % (Auto) 9.4 (2-11) % Eos % (Auto) 0.2 (0-4) % Baso % (Auto) 0.2 (0-2) % Lymph # (Auto) 0.9 L (1.2-4.9) X10*3/uL [place] # (Auto) 0.6 (0.1-1.2) X10*3/uL Eos # (Auto) 0.0 (0.0-0.4) X10*3/uL Baso # (Auto) 0.0 (0.0-0.2) X10*3/uL Abs Immat Gran (auto) 0.02 (0.00-0.03) X10*3/uL Absolute Neuts (auto) 4.7 (2.0-8.3) x10*3/uL Absolute Nucleated RBC 0.000 (0.0-0.012) X10*3/uL Nucleated RBC % (auto) 0.0 (0.0-0.2) /100WBC Sodium 138 (135-145) mmol/L Potassium 4.2 (3.3-5.1) mmol/L Chloride 105 (96-108) mmol/L Carbon Dioxide 21 L (22-29) mmol/L Anion Gap 16 (12-20) BUN 7 L (9-16) mg/dL Creatinine 0.76 (0.5-1.4) mg/dL Estim Creat Clear Calc 134.0 Estimated GFR > 60 Random Glucose 105 (60-115) mg/dL Calcium 8.7 D (8.4-10.2) mg/dL Magnesium 2.0 (1.6-2.6) mg/dL Total Bilirubin 0.4 (0.0-1.0) mg/dL AST 28 (5-31) U/L ALT 41 H (0-31) U/L Alkaline Phosphatase 105 (39-117) U/L Total Protein 7.7 (6.5-8.0) g/dL Albumin 3.8 (3.5-5.0) g/dL Beta HCG, Quant mIU/mL Urine Color Urine Appearance Urine pH (5.0-9.0) Ur Specific [place] (1.005-1.025) Urine Protein (Neg-Trace) mg/dL Urine Glucose (UA) (Negative) mg/dL Urine Ketones (Negative) mg/dL Urine Blood (Negative) Urine Nitrite (Negative) Ur Leukocyte Esterase (Negative) Urine RBC (0-2) /HPF Urine WBC (0-5) /HPF Ur Squamous Epith Cells (0-2) /HPF Urine Bacteria (None Seen) Hyaline Casts (0-2) /LPF COVID-19 ([facility]) (Negative) COVID-19 Clin Com Influenza Type A ([facility]) Cancelled Influenza Type B ([facility]) Cancelled Influenza A & B Note Cancelled 02/01/23 02/01/23 02/01/23 Range/Units 20:27 20:27 23:36 WBC (4.8-10.8) X10*3/uL RBC (4.20-5.50) X10*6/uL Hgb (12.0-16.0) g/dl Hct (37.0-47.0) % MCV (80.0-98.0) fL MCH (27.0-33.0) pg MCHC (31.0-35.0) g/dl RDW (11.0-16.0) % Plt Count (160-400) X10*3/uL MPV (9.4-12.3) fL Immature Gran % (Auto) (0.0-0.4) % Neut % (Auto) (45-73) % Lymph % (Auto) (20-40) % [place] % (Auto) (2-11) % Eos % (Auto) (0-4) % Baso % (Auto) (0-2) % Lymph # (Auto) (1.2-4.9) X10*3/uL [place] # (Auto) (0.1-1.2) X10*3/uL Eos # (Auto) (0.0-0.4) X10*3/uL Baso # (Auto) (0.0-0.2) X10*3/uL Abs Immat Gran (auto) (0.00-0.03) X10*3/uL Absolute Neuts (auto) (2.0-8.3) x10*3/uL Absolute Nucleated RBC (0.0-0.012) X10*3/uL Nucleated RBC % (auto) (0.0-0.2) /100WBC Sodium (135-145) mmol/L Potassium (3.3-5.1) mmol/L Chloride (96-108) mmol/L Carbon Dioxide (22-29) mmol/L Anion Gap (12-20) BUN (9-16) mg/dL Creatinine (0.5-1.4) mg/dL Estim Creat Clear Calc Estimated GFR Random Glucose (60-115) mg/dL Calcium (8.4-10.2) mg/dL Magnesium (1.6-2.6) mg/dL Total Bilirubin (0.0-1.0) mg/dL AST (5-31) U/L ALT (0-31) U/L Alkaline Phosphatase (39-117) U/L Total Protein (6.5-8.0) g/dL Albumin (3.5-5.0) g/dL Beta HCG, Quant < 2 mIU/mL Urine Color Dark Yellow Urine Appearance Cloudy Urine pH 6.0 (5.0-9.0) Ur Specific [place] >= 1.030 H (1.005-1.025) Urine Protein 30 (1+) H (Neg-Trace) mg/dL Urine Glucose (UA) Negative (Negative) mg/dL Urine Ketones 15 (Negative) mg/dL Urine Blood Small (1+) H (Negative) Urine Nitrite Negative (Negative) Ur Leukocyte Esterase Trace H (Negative) Urine RBC 6-10 H (0-2) /HPF Urine WBC 0-5 (0-5) /HPF Ur Squamous Epith Cells 6-10 (0-2) /HPF Urine Bacteria None Seen (None Seen) Hyaline Casts 6-10 (0-2) /LPF COVID-19 ([facility]) Negative (Negative) COVID-19 Clin Com See Note Influenza Type A ([facility]) Influenza Type B ([facility]) Influenza A & B Note <Theresa Abernathy MD - Last Filed: 02/02/23 00:05> External Record Review External record reviewed: Prior outpatient labs <Theresa Abernathy MD - Last Filed: 02/02/23 00:05> Discharge Plan Discharge Clinical Impression: Viral syndrome, Gastroenteritis <HU Vasquez - Last Filed: 02/01/23 20:13> Patient Disposition: Home, Self-Care <HU Vasquez - Last Filed: 02/01/23 20:13> Instructions: Gastroenteritis (ED), Viral Syndrome (ED) <HU Vasquez - Last Filed: 02/01/23 20:13> Additional Instructions: 1. Recommend [id number] Tylenol/ibuprofen as needed for body aches and temperatures greater than 100.4. 2. Recommend that you continue to push hydration and bland diet. 3. I have provided prescription for antinausea medications and sent to your pharmacy. 4. Follow-up with your primary care provider by calling the office on Friday morning. Return to the ER for any worsening symptoms. <HU Vasquez - Last Filed: 02/01/23 20:13> Prescriptions: New ondansetron HCl 4 mg tablet 4 mg PO Q8H PRN (Reason: nausea and vomiting) 4 Days Qty: 14 0RF No Action desogestrel-ethinyl estradiol [Apri] 0.15-0.03 mg tablet 1 tab PO DAILY Qty: 28 10RF ondansetron HCl [Zofran] 4 mg Tablet 4 mg PO Q6H PRN (Reason: Nausea) zinc 50 mg Tablet 50 mg PO DAILY cholecalciferol (vitamin D3) [Vitamin D3] 25 mcg (1,000 unit) Tablet 25 mcg PO DAILY dexamethasone 6 mg tablet 6 mg PO DAILY Qty: 7 0RF cefuroxime axetil 500 mg tablet 500 mg PO Q12H 5 Days Qty: 10 0RF <HU Vasquez - Last Filed: 02/01/23 20:13> Referrals: Edgar Choudhury MD [Primary Care Provider] - <HU Vasquez - Last Filed: 02/01/23 20:13>
[2023-02-01 20:32] LABS: MANUAL DIFF FLAG NO
[2023-02-01 20:43] LABS: Basophils Percent Auto 0.2 % (0-2); Eosinophils Percent Auto 0.2 % (0-4); Hemoglobin 16.1 g/dl (12.0-16.0); Imm Gran Abs Auto 0.02 X10*3/uL (0.00-0.03); Imm Gran Pct Auto 0.3 % (0.0-0.4); Lymphocytes Absolute Auto 0.9 X10*3/uL (1.2-4.9); Lymphocytes Percent Auto 14.1 % (20-40); Mean Corpuscular Volume 88.5 fL (80.0-98.0); Monocytes Absolute Auto 0.6 X10*3/uL (0.1-1.2); Monocytes Percent Auto 9.4 % (2-11); Neutrophils Absolute Auto 4.7 x10*3/uL (2.0-8.3); Neutrophils Percent Auto 75.8 % (45-73); Platelet Count 228 X10*3/uL (160-400); Red Cell Distribution Width 11.9 % (11.0-16.0); White Blood Count 6.2 X10*3/uL (4.8-10.8)
[2023-02-01 20:51] LABS: COVID-19 Test Negative (Negative); IDNOW Serial# 9DB6401D
[2023-02-01 20:53] LABS: Alanine Aminotransferase 41 U/L (0-31); Albumin Level 3.8 g/dL (3.5-5.0); Alkaline Phosphatase 105 U/L (39-117); Anion Gap 16 (12-20); Aspartate Amino Transferase 28 U/L (5-31); Bilirubin Total 0.4 mg/dL (0.0-1.0); Blood Urea Nitrogen 7 mg/dL (9-16); Calcium 8.7 mg/dL (8.4-10.2); Carbon Dioxide 21 mmol/L (22-29); Chloride 105 mmol/L (96-108); Estimated Glomerular Filt Rate > 60; Glucose Random 105 mg/dL (60-115); Potassium 4.2 mmol/L (3.3-5.1); Sodium 138 mmol/L (135-145); Total Protein 7.7 g/dL (6.5-8.0)
[2023-02-01 21:11] LABS: HCG Quantitative < 2 mIU/mL
[2023-02-01] MEDS: Ondansetron ODT 4 MG TAB.RAPDIS TRANSLINGU ×2 (21:58→23:24)
[2023-02-01 23:24] VITALS: BP 132/79; PULSE 87; RESP 16; O2SAT 95
--- NOTE | 2023-02-01 23:26 | PC.NURSE ---
Report taken from Paty. Pt found resting in bed drinking apple juice. Pt reporting 7/10 pain to abdomen with nausea. P medicated with additional dose of Zofran per DEC. VSS at this time. UA obtained and sent. Pt resting comfortably in bed, awaiting UA results. Continue to monitor.
[2023-02-01 23:47] LABS: Appearance Urine Cloudy; Color Urine Dark Yellow; Glucose Urine UA Negative (Negative); Leukocyte Esterase Urine Trace (Negative); Nitrite Urine Negative (Negative); Specific Gravity - Urine >= 1.030 (1.005-1.025); UMIC TRIGGER UACC YES; Urine Blood Small (1+) (Negative); Urine Ketones 15 mg/dL (Negative); Urine Protein 30 (1+) mg/dL (Neg-Trace)
[2023-02-01 23:56] LABS: Bacteria Urine None Seen (None Seen); WBC Urine 0-5 /HPF (0-5)
== END 2023-02-02 00:15 | disposition home or self-care (01) ==
PROVIDERS: Physician Assistant Medical; Emergency Provider Student in an Organized Health Care Education/Training Program; PCP Internal Medicine
DX: B34.9 Viral infection, unspecified (principal); K52.9 Noninfective gastroenteritis and colitis, unspecified; Z20.822 Contact with and (suspected) exposure to COVID-19; R11.2 Nausea with vomiting, unspecified
CPT/HCPCS: 36415; 80053; 81001; 83735; 84702; 85025; 87635; 99283

== ENCOUNTER 2023-03-19 08:32 | Outpatient (REF) | payer OTHER, SELFPAY ==
[2023-03-21 02:29] LABS: HPV mRNA E6/E7 rflx Not Detected (Not Detected)
== END 2023-03-19 08:33 | disposition home or self-care (01) ==
LOC: HO.LNP 08:32
PROVIDERS: PCP Internal Medicine; Visit Provider Obstetrics & Gynecology
DX: Z01.419 Encounter for gynecological examination (general) (routine) without abnormal findings (principal); Z11.51 Encounter for screening for human papillomavirus (HPV)
CPT/HCPCS: 87624; 88142

== ENCOUNTER 2024-10-25 08:50 | Emergency (ER) | payer SELFPAY ==
[2024-10-25 08:58] VITALS: BP 134/77; PULSE 106; RESP 20; TEMP 38.5; O2SAT 96; BMI 40.3
[2024-10-25] MEDS: Acetaminophen 325 MG TABLET 650 MG PO (09:03)
[2024-10-25 10:07] LABS: Influenza A PCR POSITIVE (Negative); Influenza B PCR NEGATIVE (Negative); Resp Syncy Virus RNA Qual PCR NEGATIVE (Negative); SARS COV2 PCR INHOUSE NEGATIVE (Negative)
[2024-10-25 10:40] VITALS: TEMP 38.2
--- NOTE | 2024-10-25 11:10 | ED_ITS ---
HPI - URI/Sore Throat General Chief Complaint: Upper Respiratory Symptoms Stated Complaint: Flu Symptoms Time Seen by Provider: 10/25/24 09:22 Source: patient Mode of arrival: ambulatory Limitations: no limitations History of Present Illness ED Provider: HUDSON ACOSTA PA-C HPI Narrative: 34 year old female presents to the ED today for evaluation of dry cough, fevers (TMAX 101), nasal congestion, and myalgias x4 days. Her daughter is ill at home with similar symptoms. She did not receive her influenza vaccine this year. Her vaccinations are otherwise up-to-date. Denies sore throat, sputum production, chest pain, nausea, vomiting, diarrhea, abdominal pain. Related Data Home Medications ?Medication ?Instructions ?Recorded ?Confirmed cholecalciferol (vitamin D3) 25 25 mcg PO DAILY 06/07/21 06/07/21 mcg (1,000 unit) tablet (Vitamin D3) ondansetron HCl 4 mg tablet 4 mg PO Q6H PRN Nausea 06/07/21 06/07/21 (Zofran) zinc 50 mg tablet 50 mg PO DAILY 06/07/21 06/07/21 Previous Rx's ?Medication ?Instructions ?Recorded cefuroxime axetil 500 mg tablet 500 mg PO Q12H 5 days #10 tabs 06/09/21 dexamethasone 6 mg tablet 6 mg PO DAILY #7 tabs 06/09/21 ondansetron HCl 4 mg tablet 4 mg PO Q8H PRN nausea and 02/02/23 vomiting 4 days #14 tabs desogestrel 0.15 mg-ethinyl 1 tab PO DAILY 28 days #28 tabs 08/21/23 estradiol 0.03 mg tablet (Apri) desogestrel 0.15 mg-ethinyl 1 tab PO DAILY #28 tabs 11/24/23 estradiol 0.03 mg tablet (Apri) benzonatate 100 mg capsule 100 mg PO BID PRN cough #20 caps 10/25/24 Allergies Allergy/AdvReac Type Severity Reaction Status Date / Time No Known Allergies Allergy Verified 10/25/24 09:00 [No Known Allergies*] Review of Systems Review of Systems: Constitutional: No chills, fatigue, night sweats, weight changes, + fever ENT/Mouth: No ear pain, hearing loss, nasal congestion, sinus pain, rhinorrhea, sore throat Eyes: No eye pain, swelling, redness, vision changes, discharge Cardio: No chest pain, palpitations, ELAINE, orthopnea, peripheral edema Pulm: No SOB, cough, sputum, wheezing, dyspnea, hemoptysis, +cough GI: No nausea, vomiting, hematemesis, abdominal pain, diarrhea, constipation, hematochezia, melena : No irregular bleeding, dysuria, frequency, urgency, hesitancy, hematuria, flank pain, urinary flow changes, urinary incontinence or retention MSK: No back pain, neck pain, joint pain, +myalgias Skin: No lesions, rashes Neuro: No weakness, numbness, paresthesias, LOC, dizziness, headache Psych: No anxiety/panic, depression, SI/HI, AH/VH All other systems reviewed and are negative. [facility] Past Medical History Attestation statement: The following information was validated with the patient. Source: old records reviewed and nursing notes reviewed Medical History , ectopic, tubal Surgical History History of salpingectomy Family History Family History Maternal Grandmother Uterine cancer Maternal Grandfather Prostate cancer metastatic to bone Social History Social History Household Members: None Housing: Apartment Do you presently have visiting nurse or other home services: No Alcohol intake: never Patient Tobacco Use Status: Never used Tobacco Advance Directives: No Advance Directives Information Provided: Yes service: No Current occupational status: employed Sexual orientation: Straight/Heterosexual Gender identity: Female Physical Exam Vital Signs: Vital Signs: Last Vital Signs Temp 99.9 F 10/25/24 11:42 Pulse 99 10/25/24 11:42 Resp 20 10/25/24 11:42 BP 131/72 10/25/24 11:42 Pulse Ox 97 10/25/24 11:42 O2 Del Method Room Air 10/25/24 11:42 BMI result Body Mass Index 40.3 Febrile to 101.3, tachycardic to 106 General: Well appearing, in no acute distress. Skin: Warm, dry, intact. No rashes or lesions. Head: Normocephalic, atraumatic. EENT: Hearing is intact b/l. Conjunctiva clear. PERRLA. EOM intact. Moist mucous membranes.? Posterior oropharynx WNL Neck: Supple without LAD Cardiac: Chest wall symmetric. RRR. Lungs: Normal respiratory effort without accessory muscle use. CTA bilaterally. No rales, rhonchi, or wheezes.? Abdomen: Soft, non-tender, non-distended. No rebound tenderness or guarding Ext: Upper and lower extremities atraumatic, without tenderness, deformity, swelling or erythema Neuro: AOx3. Normal speech. Ambulating with steady gait. Psych: Appropriate mood and affect. Responds appropriately to questions. Course Course Course Narrative: Patient tested positive for influenza A. Educated on symptomatic treatment. Her symptoms have been present for at least 4 days in his out of the window for Tamiflu to be effective. Patient has remained stable throughout ED visit today. Discussed worrisome signs and symptoms and when to return to the ED. All questions answered at this time. Patient is agreeable with disposition and stable for discharge. Medications Administered Discontinued Medications Generic Name Dose Route Start Last Admin Trade Name Freq PRN Reason Stop Dose Admin Acetaminophen 650 mg 10/25/24 09:01 10/25/24 09:03 Acetaminophen 325 Mg Tablet PO 10/25/24 09:02 650 mg ONCE ONE Administration Medical Decision Making Medical Decision Making [facility] Narrative: 34 year old female presents to the ED today for evaluation of dry cough, fevers (TMAX 101), nasal congestion, and myalgias x4 days. Initially febrile to 101.3, tachycardic to 106. Patient received Tylenol with improvement in temperature. Vitals are now stable. She is nontoxic-appearing and in no acute distress. No respiratory distress. Lungs are CTA bilaterally. Exam benign. Differential diagnosis includes viral syndrome, strep throat, headache, migraine, pneumonia, bronchitis. Unlikely [employer], retropharyngeal abscess, epiglottitis, peritonsillar abscess. Plan for viral and strep swabs. +/-chest x-ray Differential Diagnosis Differential Diagnoses: The differential diagnosis associated with the presentation includes As above Admission/Observation Not indicated Lab Data [facility] Lab Attestation statement: I reviewed the patient's lab results. As above Labs: Lab Results 10/25/24 Range/Units 09:21 Influenza Type A (PCR) POSITIVE A (Negative) Influenza Type B (PCR) NEGATIVE (Negative) RSV RNA Qual (PCR) NEGATIVE (Negative) SARS-CoV-2 RNA (RT-PCR) NEGATIVE (Negative) External Record Review External record reviewed: Inpatient record Prescription Management I considered prescription management with: Other (Ambar Mejia) Social Determinants Patient?s care significantly limited by Social Determinants of Health including: Other Social Determinant of Health Critical Care Time Critical Care Time Critical Care Time: No Discharge Plan Discharge Clinical Impression: Influenza A Patient Disposition: Home, Self-Care Instructions: Influenza (ED) Additional Instructions: You tested positive for influenza A. This is a viral infection and does not require treatment with antibiotics. This can last anywhere from 5-7 days. You are currently out of the window for treatment with Tamiflu. Ambar Mejia have been sent to your pharmacy for you to take as needed for cough. Keep these out of reach of children. Alter ibuprofen and Tylenol for fevers and body aches. Follow up with your primary care physician. If symptoms persist or worsen please return to the emergency department. The case of an emergency call 911. Prescriptions: New benzonatate 100 mg capsule 100 mg PO BID PRN (Reason: cough) Qty: 20 0RF No Action desogestrel-ethinyl estradiol [Apri] 0.15-0.03 mg tablet 1 tab PO DAILY 28 Days Qty: 28 0RF desogestrel-ethinyl estradiol [Apri] 0.15-0.03 mg tablet 1 tab PO DAILY Qty: 28 10RF ondansetron HCl [Zofran] 4 mg Tablet 4 mg PO Q6H PRN (Reason: Nausea) zinc 50 mg Tablet 50 mg PO DAILY cholecalciferol (vitamin D3) [Vitamin D3] 25 mcg (1,000 unit) Tablet 25 mcg PO DAILY dexamethasone 6 mg tablet 6 mg PO DAILY Qty: 7 0RF cefuroxime axetil 500 mg tablet 500 mg PO Q12H 5 Days Qty: 10 0RF ondansetron HCl 4 mg tablet 4 mg PO Q8H PRN (Reason: nausea and vomiting) 4 Days Qty: 14 0RF Referrals: Edgar Choudhury MD [Primary Care Provider] - Stand Alone Forms: Work/School Release Interventions: ED Discharge Assessment Last Done: 10/25/24 11:42 Discharge Date/Time: 10/25/24 11:43 Print Language: Citizen [place]
[2024-10-25 11:42] VITALS: BP 131/72; PULSE 99; RESP 20; TEMP 37.7; O2SAT 97
== END 2024-10-25 11:43 | disposition home or self-care (01) ==
PROVIDERS: Emergency Provider Emergency Medicine; PCP Internal Medicine
DX: J10.1 Influenza due to other identified influenza virus with other respiratory manifestations (principal); R00.0 Tachycardia, unspecified; R05.9 Cough, unspecified; R50.9 Fever, unspecified; M79.10 Myalgia, unspecified site; Z03.818 Encounter for observation for suspected exposure to other biological agents ruled out
CPT/HCPCS: 0241U; 99283

== ENCOUNTER 2025-03-01 09:06 | Outpatient (AMB) | payer OTHER, SELFPAY ==
--- NOTE | 2025-03-01 09:06 | A.OFFVIS_ITS ---
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 She does not have a primary care provider anymore as hers has retired. She says she has not had fasting lab work in a long time she has had difficulty losing weight and she feels tired all the time and she would like for many things including her hormones and thyroid and everything else to be checked she has a family history of diabetes and is concerned about that. She is trying to walk at least 3 times a week with friends. She is trying to eat healthy and she has cut out soda completely. The last time she had sex was in October she would be interested in full STI testing. She would be interested in childbearing if she found the right person and it was the right time. She has a 1 child delivered vaginally and 1 ectopic . She recently noticed that when she was fasting for she lost 7 lb just by trying to eat very healthy for her to meals a day and avoiding carbs so as to not be hungry during the day. However she was upset with herself and that she gained the weight back. She feels she is healthy overall and could lose the weight and would rather not resort to medications and is not interested in surgery but she definitely wants to lose the weight. 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 She is very educated about various health concerns and understands interactions. She has wondered if she might have PCOS though she does not have increased facial hair. She reports her periods as always having been irregular but says that they have always come about 5 weeks apart. [facility] Medical History , ectopic, tubal Surgical History History of salpingectomy Family History Maternal Grandmother Uterine cancer Maternal Grandfather Prostate cancer metastatic to bone Social History Household Members: None Housing: Apartment Do you presently have visiting nurse or other home services: No Alcohol intake: never Patient Tobacco Use Status: Never used Tobacco service: No Current occupational status: employed Sexual orientation: Straight/Heterosexual Gender identity: Female Female Reproductive History Menstrual Age of Menarche: 12 Date of last menstrual period: 02/28/25 (present ) control method: none Total pregnancies: 2 Full term: 1 Ectopics: 1 Date of last pap smear: 03/19/23 (negative pap smear, negative hpv) History of abnormal pap smear: No Physical Exam Vital Signs: Last Vital Signs BP 124/72 03/01/25 09:17 BMI result Body Mass Index 40.8 Const General: healthy appearing, comfortable, no acute distress, well developed and alert Nutritional Appearance: average body habitus Orientation/consciousness: patient oriented x3 Limitations: no limitations HEENT Head: Yes normocephalic Neck Neck: Yes normal visual inspection Thyroid: Thyroid normal Chest Chest palpation & inspection: normal inspection of the chest Breast/axilla inspection: normal inspection of the breasts and normal inspection of the axillae Breast/axilla palpation: normal palpation of the breasts and normal palpation of the axillae Resp Effort & Inspection: normal respiratory effort GI Inspection: Yes normal to inspection, No Abdominal wall edema and No distended Palpation (GI): Soft to palpation and nontender Other: External exam within normal limits vagina pink and moist with normal heavy menses cervix multiparous pink smooth healthy appearing adnexa nontender uterus midposition mobile nontender nonenlarged good tone with Kegel. General: Yes bladder normal to palpation External Female Exam: normal external appearance and normal appearance of the urethra Speculum Exam - Vagina: normal appearance of the vagina, normal palpation and normal vaginal discharge Speculum Exam - Cervix: normal appearance of the cervix, normal palpation and nontender Bimanual exam- vagina & uterus: normal bimanual exam, normal palpation, uterine size normal, bladder normal to palpation, consistency normal, normal palpation, uterine mobility normal, uterine shape normal, No Cervical tenderness present, non-tender and no cervical motion tenderness Bimanual Exam- Adnexa, other: normal adnexae, no masses, normal and No adnexal tenderness Neuro General: patient oriented x3 Results Reviewed Results Reviewed: Name: Caity Gimenez Age/Sex: 32/F Attending: Angel De La Cruz MD : 1990 Submitted by: Angel De La Cruz MD Copies to: Edgar Choudhury MD MR #: [id number] Status: DEP REF Collected: 03/19/23 Location: [facility] Received: 03/19/23 Interpretation Satisfactory for evaluation. Negative for intraepithelial lesion or malignancy. HPV mRNA E6/E7: NOT DETECTED This assay detects E6/E7 viral messenger RNA (mRNA) from 14 high-risk HPV types (16, 18, 31, 33, 35, 39, 45, 51, 52, 56, 58, 59, 66, 68) HPV testing performed by [employer], [place], [place]. See reference laboratory pion of the EMR for entire report. Clinical Information LMP: 03/11/23 Previous PAP test: 08/31/20, WNL Material Received ThinPrep-Cervical Copies To Edgar Choudhury MD [address] [facility], [place] [address] [place] [address] Angel De La Cruz MD [address] [place] [address] [place] [address] Electronically Signed By: LUIZ Ng (ASCP) 04/07/23 2743 The Pap Test is a screening procedure with the inherent possibility of both false negative and false positive results. Results should be interpreted in the context of historic and current clinical findings. Reliability of the Pap Test is enhanced by performing the test on a regular repetitive basis. Patient: Caity Gimenez Age/Sex: 32/F MR#: [id number] Page 1 of 1 Assessment & Plan Assessment & Plan (1) Well woman exam: Code(s): Z01.419 - Encounter for gynecological examination (general) (routine) without abnormal findings Category: Medical (2) Potential exposure to STD: Code(s): Z20.2 - Contact with and (suspected) exposure to infections with a predominantly sexual mode of transmission Category: Medical (3) Obesity, morbid, BMI 40.0-49.9: Code(s): E66.01 - Morbid (severe) obesity due to excess calories Category: Medical (4) Menstrual cycle disorder: Comment: has long cycles Code(s): N92.6 - Irregular menstruation, unspecified Category: Medical (5) History of salpingectomy: Comment: Partial right Code(s): Z90.79 - Acquired absence of other genital organ(s) Category: Surgical (6) Screen for STD (sexually transmitted disease): Code(s): Z11.3 - Encounter for screening for infections with a predominantly sexual mode of transmission Category: Medical Plan -----Discussed in this visit the following: healthy balanced diet, regular and consistent exercise, getting recommended health screens, doing the best she can for her particular health concerns, kegel exercises, pap smear screening and followup recommendations, mammography screening and SBE, normal changes in cycles in her life stage--- . ---Discussed with pt, her wt, and BMI, and her goals. Discussed ideal dietary guidelines to assist in weight loss, focusing on vegetables and fruits and lean proteins, and minimizing fats and carbohydrates and eliminating empty calories. Discussed exercise, including regular, sufficient, and consistent cardio based exercise, and weight bearing exercise. Discussed barriers to exercise and healthy eating, and possible ways of establishing newer healthier habits. Discussed supports to help in her efforts, and timing issues. Discussed adequate sleep, and ways to achieve this. Discussed adequate water intake.-- ---Discussed PCOS in general and specifically about the interplay of the abnormal hormonal milieu related to being overweight, with the elevations of many hormone levels, including testosterone and estrogen, as well as others that contribute to cycles that are anovulatory and therefore prolonged, and when periods do come they come very heavy, and can contribute to lots of cramping, with passage of clots and anemia. Discussed the common symptoms related to the elvated hormonal levels, including increased facial hair, male pattern hair thinning, acne, and increased central abdominal girth. Discussed the interplay with difficulty getting when desired, but still possible, and therefore the need to contracept as appropriate and when needed. Discussed the role of weight loss as the primary, most important, and most likely to succeed, intervention, in achieving healthier status as regards PCOS, and ovulatory regular cycles. Additionally the very important relationship to elevated insulin levels, and blood sugars, and high risk of pre diabetes, progressing to diabetes as well as other metabolic syndromes related to this was discussed. She is going to be looking for her primary care provider soon. But since she is currently in between provider's and is very interested in getting all of these fasting labs done as soon as possible I am ordering them for her now she is on the portal and I ordered the labs with the full knowledge that she is aware that I would not be managing any abnormals and in the meantime she is going to try and find a primary care provider. We would let her know if anything abnormal. She has not eaten yet today so this is a very good time to do all of the lab work including hormonal level she is interested in as well as the basic metabolic profile that she requested and the thyroid level and other labs as well she is also concerned about the family history of diabetes so that is of concern for her. I also gave her a list of primary care provider's and she is going to be checking with her former provider's office to see if they have made other arrangements as well. Fasting lab work now Patient to check labs on portal RTC 1 year Orders: Orders Hemoglobin A1c Today E66.01 - Morbid (severe) obesity due to excess calories, N92.6 - Irregular menstruation, unspecified, Z01.419 - Encounter for gynecologic al examination (general) (routine) without abnormal findings, Z20.2 - Contact with and (suspected) exposure to infections with a predominantly sexual mode of transmission HIV Ab/Ag Today E66.01 - Morbid (severe) obesity due to excess calories, N92.6 - Irregular menstruation, unspecified, Z01.419 - Encounter for gynecological examination (general) (routine) without abnormal findings, Z20.2 - Contact with and (suspected) exposure to infections with a predominantly sexual mode of transmission Thyroid Stimulating Hormone Today E66.01 - Morbid (severe) obesity due to excess calories, N92.6 - Irregular menstruation, unspecified, Z01.419 - Encounter for gynecological examination (general) (routine) without abnormal findings, Z20.2 - Contact with and (suspected) exposure to infections with a predominantly sexual mode of transmission Testosterone, Free/Total Today E66.01 - Morbid (severe) obesity due to excess calories, N92.6 - Irregular menstruation, unspecified, Z01.419 - Encounter for gynecological examination (general) (routine) without abnormal findings, Z20.2 - Contact with and (suspected) exposure to infections with a predominantly sexual mode of transmission Glucose Fasting Today E66.01 - Morbid (severe) obesity due to excess calories, N92.6 - Irregular menstruation, unspecified, Z01.419 - Encounter for gynecological examination (general) (routine) without abnormal findings, Z20.2 - Contact with and (suspected) exposure to infections with a predominantly sexual mode of transmission Comprehensive [place]. Panel Fast Today E66.01 - Morbid (severe) obesity due to excess calories, N92.6 - Irregular menstruation, unspecified, Z01.419 - Encounter for gynecological examination (general) (routine) without abnormal findings, Z20.2 - Contact with and (suspected) exposure to infections with a predominantly sexual mode of transmission Prolactin Today E66.01 - Morbid (severe) obesity due to excess calories, N92.6 - Irregular menstruation, unspecified, Z01.419 - Encounter for gynecological examination (general) (routine) without abnormal findings, Z20.2 - Contact with and (suspected) exposure to infections with a predominantly sexual mode of transmission Hepatitis B Surface Antigen Today E66.01 - Morbid (severe) obesity due to excess calories, N92.6 - Irregular menstruation, unspecified, Z01.419 - Encounter for gynecological examination (general) (routine) without abnormal findings, Z20.2 - Contact with and (suspected) exposure to infections with a predominantly sexual mode of transmission Hepatitis C Antibody Today E66.01 - Morbid (severe) obesity due to excess calories, N92.6 - Irregular menstruation, unspecified, Z01.419 - Encounter for gynecological examination (general) (routine) without abnormal findings, Z20.2 - Contact with and (suspected) exposure to infections with a predominantly sexual mode of transmission Syphilis Screen Today E66.01 - Morbid (severe) obesity due to excess calories, N92.6 - Irregular menstruation, unspecified, Z01.419 - Encounter for gynecological examination (general) (routine) without abnormal findings, Z20.2 - Contact with and (suspected) exposure to infections with a predominantly sexual mode of transmission Complete Blood Count no Diff Today E66.01 - Morbid (severe) obesity due to excess calories, N92.6 - Irregular menstruation, unspecified, Z01.419 - E ncounter for gynecological examination (general) (routine) without abnormal findings, Z20.2 - Contact with and (suspected) exposure to infections with a predominantly sexual mode of transmission DHEA Sulfate Today E66.01 - Morbid (severe) obesity due to excess calories, N92.6 - Irregular menstruation, unspecified, Z01.419 - Encounter for gynecological examination (general) (routine) without abnormal findings, Z20.2 - Contact with and (suspected) exposure to infections with a predominantly sexual mode of transmission Lipid Panel Today E66.01 - Morbid (severe) obesity due to excess calories, N92.6 - Irregular menstruation, unspecified, Z01.419 - Encounter for gynecological examination (general) (routine) without abnormal findings, Z20.2 - Contact with and (suspected) exposure to infections with a predominantly sexual mode of transmission Coding Level of Care Code Est Pt Prev Care 18-39y([id number]) Diagnoses Well woman exam Z01.419 Potential exposure to STD Z20.2 Obesity, morbid, BMI 40.0-49.9 E66.01 Menstrual cycle disorder N92.6 History of salpingectomy Z90.79 Screen for STD (sexually transmitted disease) Z11.3
[2025-03-01 09:17] VITALS: BP 124/72; BMI 40.8
--- OUTSIDE RECORDS SUMMARY | 2025-03-01 09:53 | XMS_ITS | Encounter Summary ---
Author Organization [employer] Address [address] [facility] [address] [place] [address] Care Team Providers Care Pharmaceutical Specialty Representative Name Role Phone Jannie Hernandez MACHINE BASTER Primary Care Provider [phone] Reason for Visit * Reason Onset Date Comments work note fax 04/07/2024 Encounter Details Date Type Department Care Team ([facility] st Contact Info) Description 04/07/2024 Telephone [facility] ADULT DENTAL [address], [place] [id number] [place], [place] [address], [place] [phone] work note fax Social History Tobacco Use Types Packs/Day Years Used Date Smoking Tobacco: Never Assessed Comments Unknown Sex and Gender Information Value Date Recorded Sex Assigned at Female 08/26/2022 10:22 AM EDT Legal Sex Female 10:22 AM EDT Gender Identity Female 08/26/2022 10:22 AM EDT Sexual Orientation Choose not to disclose 2021 10:22 AM EDT documented as of this encounter Miscellaneous Notes * Telephone Encounter - Una Rand - 04/07/2024 8:46 AM EDT Patient got a work note on 03/31 when she came in for ext. She is at work and forgot her note at home. She is looking to have note faxed to work if possibel. She works at [employer]. Fax number [phone] * Telephone Encounter - Una Rand - 04/07/2024 8:[address] Casillas is not in today. Added Dr. Weems to message Patient had a questions regarding healing. She states that her stitches have begun to dissolve and she has a little hole in gum that is red andirritated. She has no pain. She would like to know if this is normal. documented in this encounter Plan of Treatment Not on file documented as of this encounter Visit Diagnoses Not on filedocumented in this encounter Care Teams Pharmaceutical Specialty Representative Relationship Specialty Start Date End Date Jannie Hernandez FNP [address] [place] [id number] PCP - General Family Medicine 06/30/22 documented as of this encounter
--- OUTSIDE RECORDS SUMMARY | 2025-03-01 09:53 | XMS_ITS | Encounter Summary ---
Author Organization [facility] Address [address] [place] [address] Phone Care Team Providers Care Appointment Specialist Name Role Phone Lizeth Chavez NP Primary Care Provider Unavail able Encounter Details Date Type Department Care Team (Late st Contact Info) Description 06/12/2017 Conversion Encounter [facility] - [address] [address] Social History Tobacco Use Types Packs/Day Years Used Date Smoking Tobacco: Never Assessed Comments Unknown Sex and Gender Information Value Date Recorded Sex Assigned at Not on file Legal Sex Female 4:40 PM EDT Gender Identity Not on file Sexual Orientation Not on file documented as of this encounter Plan of Treatment Not on file documented as of this encounter Visit Diagnoses Not on filedocumented in this encounter Care Teams Appointment Specialist Relationship Specialty Start Date End Date Lizeth Chavez NP PCP - General 06/06/17 documented as of this encounter
--- OUTSIDE RECORDS SUMMARY | 2025-03-01 09:54 | XMS_ITS | Clinical Summary ---
Author Organization [employer] Address [address] [facility] [address] [place] [address] Care Team Providers Care Milk Wagon Driver Name Role Phone Jannie Hernandez [facility] Primary Care Provider [phone] Allergies No known active allergies Medications desogestrel-ethi nyl estradiol (Azurette) 0.15-0.02/0.01 MG (16/03) tablet Take 1 tablet by mouth at bed time. Active Social History Tobacco Use Types Packs/Day Years Used Date Smoking Tobacco: Never Assessed Comments Unknown Sex and Gender Information Value Date Recorded Sex Assigned at Female 08/26/2022 10:22 AM EDT Legal Sex Female 10:22 AM EDT Gender Identity Female 08/26/2022 10:22 AM EDT Sexual Orientation Choose not to disclose 2021 10:22 AM EDT Last Filed Vital Signs Vital Sign Reading Time Taken Comments Blood Pressure 110/50 03/31/2024 1:59 PM EDT Pulse - - Temperature - - Respiratory Rate - - Oxygen Saturation - - Inhaled Oxygen Concentration - - Weight - - Height - - Body Mass Index - - Plan of Treatment Health Maintenance Due Date Last Done Comments Depression Screening 1991 HIV Screening 1991 Lipid Panel 1991 SDOH Screening 1991 Alcohol/Substance Use Screening 2003 Tobacco Screening 2003 Family Planning (PISQ) 2006 Hepatitis C Screening 2009 Pap Smear 2012 Dental Oral Exam 08/31/2021 02/27/2021, 12/03/2013 Dental Prophylaxis 08/31/2021 02/27/2021, 0 04/16/2018, 07/28/2014, Additional history exists Cervical Cancer Screening 2021 HPV/Cotest 2021 Dental X-Ray: Bitewings 02/28/2022 02/27/2021, 12/03 COVID-19 Vaccine ( season) 2024 02/27/2022, 02/05/2022 Influenza Vaccine (#1) 2024 3, 09/29/2009, 09/29/2009 Dental X-Ray: Full Mouth 11/04/2026 024, 02/27/2021, 12/03/2013 DTaP/Tdap/Td Vaccines (8 - Td or Tdap) 03/04/2028 03/04/2018, 06/08/2008, 03/28/2004, Additional history exists Zoster Vaccines (1 of 2) 2041 RSV Patients and Patients Aged 60 years or older (1 - 1-dose 75+ series) 2066 HIB Vaccines Aged Out 05/26/1992, 02/26, 1991 No longer eligible based on patient's age to complete this topic IPV Vaccines Completed 02/24/1996, 01/27, 01/24/1994, Additional history exists Hepatitis B Vaccines Completed 11/29/1998, 06/09/1998, 07/09/1997, Additional history exists Meningococcal Vaccine Aged Out 06/24/2007, 007 No longer eligible based on patient's age to complete this topic HPV Vaccines Completed 04/18/2008, 02/2008, 09/23/2007 Hepatitis A Vaccines Aged Out No long er eligible based on patient's age to complete this topic Pneumococcal Vaccine: Pediatrics (0 to 5 Years) and At-Risk Patients (6 to 49) Years) Aged Out No longer eligible based on patient's age to complete this topic RSV under 20 months Aged Out No longe r eligible based on patient's age to complete this topic Rotavirus Vaccines Aged Out No longer eligible based on patient's age to complete this topic Procedures Procedure Name Priority Date/Time Associated Diagnosis Comments PANORAMIC RADIOGRAPHIC IMAGE Routine 11/03/2023 11:30 AM EST PROPHYLAXIS - ADULT Routine 02/27/2021 1 2:00 AM EDT INTRAORAL - COMPLETE SERIES OF RADIOGRAPHIC IMAGES Routine 02/27/2021 12:00 AM EDT PERIODIC ORAL EVALUATION - ESTABLISHED PATIENT Routine 02/27/2021 12:00 AM EDT from Last 3 Months or Most Recently Relevant to Health Maintenance Insurance [place] D[place] - HSN PARTIAL (MEDICAID) * Guarantor: Caity Antony Account Type Relation to Patient Date of Phone Billing Address Personal/Family Self [place] Care Teams Milk Wagon Driver Relationship Specialty Start Date End Date Jannie Hernandez FNP [address] [place] [id number] PCP - General Family Medicine 06/30/22
--- OUTSIDE RECORDS SUMMARY | 2025-03-01 09:54 | XMS_ITS | Encounter Summary ---
Author Organization [facility] Address [address] [place] [phone] Phone Care Team Providers Care Nuisance Wildlife Specialist Name Role Phone Lizeth Chavez NP Primary Care Provider Unavail able Encounter Details Date Type Department Care Team (Late st Contact Info) Description 06/02/2012 Documentation [facility] [place] [address] [place] [address] Family Medicine, Physician [facility] [address] [place], [place] [id number] Social History Tobacco Use Types Packs/Day Years [...] on filedocumented in this encounter Care Teams Nuisance Wildlife Specialist Relationship Specialty Start Date End Date Lizeth Chavez NP PCP - General 06/06/17 documented as of this encounter
--- OUTSIDE RECORDS SUMMARY | 2025-03-01 09:54 | XMS_ITS | Encounter Summary ---
Author Organization [facility] Address [address] [place] [phone] Phone Care Team Providers Care Head Strength And Conditioning Coach Name Role Phone Lizeth Chavez NP Primary Care Provider Unavail able Encounter Details Date Type Department Care Team (Late st Contact Info) Description 01/15/2011 Documentation [facility] [place] [address] [place] [address] Family Medicine, Physician [facility] [address] [place], [place] [phone] Social History Tobacco Use Types Packs/Day Years [...] on filedocumented in this encounter Care Teams Head Strength And Conditioning Coach Relationship Specialty Start Date End Date Lizeth Chavez NP PCP - General 06/06/17 documented as of this encounter
--- OUTSIDE RECORDS SUMMARY | 2025-03-01 09:54 | XMS_ITS | Encounter Summary ---
Author Organization [employer] Address [address] [facility] 7t [place] [address] Care Team Providers Care Sexual Assault Response Coordinator Name Role Phone Jannie Hernandez [facility] Primary Care Provider [phone] Encounter Details Date Type Department Care Team (Latest Contact Info) Description 02/27/2021 Abstract [facility] CONVERSIONS Dental, Provider, DDS Social History Tobacco Use Types Packs/Day Years Used Date Smoking Tobacco: Never Assessed Comments Unknown Sex and Gender Information Value Date Recorded Sex Assigned at Female 08/26/2022 10:22 AM EDT Legal Sex Female 10:22 AM EDT Gender Identity Female 08/26/2022 10:22 AM EDT Sexual Orientation Choose not to disclose 2021 10:22 AM EDT documented as of this encounter Plan of Treatment Not on file documented as of this encounter Visit Diagnoses Not on filedocumented in this encounter Care Teams Sexual Assault Response Coordinator Relationship Specialty Start Date End Date Jannie Hernandez FNP [address] [place] [address] PCP - General Family Medicine 06/30/22 documented as of this encounter
--- OUTSIDE RECORDS SUMMARY | 2025-03-01 09:54 | XMS_ITS | Clinical Summary ---
Author Organization [facility] Address [address] [place] [address] Phone Care Team Providers Care Black Off Worker Name Role Phone Lizeth Chavez NP Primary Care Provider Unavail able Immunizations Immunization Administration Dates Next Due DTP 02/24/1996, 4,05/26/1992,03/26,1991 H1N1 09/29/2009 HPV, Quadrivalent 04/18/2008,12/01/2007,09/23/20 07 Hep B, ped/adol 11/29/1998, 8,07/09/1997,12/23 Hib (PRP-T) 05/26/1992,03/26/1992,1991 IPV 02/24/1996, 4,03/26/1992,12/24 Influenza, injectable, trivalent 09/29/2009 MMR 01/24/1994,12/24/1992 Meningococcal Conj (Menactra) MCV4P 06/24/2007 Td (adult) (MBL), 2 Lf tetan us toxoid, PF, adsorbed 03/28/2004 Tdap 06/08/2008 Varicella 06/08/2008,01/16/2000 Family History Relation Name Status Comments Other 1 Family history of Diabetes mellitus Other 2 Family history of Diabetes mellitus Social History Tobacco Use Types Packs/Day Years Used Date Smoking Tobacco: Never Assessed Comments Unknown Sex and Gender Information Value Date Recorded Sex Assigned at Not on file Legal Sex Female 4:40 PM EDT Gender Identity Not on file Sexual Orientation Not on file Last Filed Vital Signs Vital Sign Reading Time Taken Comments Blood Pressure 118/78 01/11/2011 12:00 AM EDT Pulse 80 04/11/2010 12:00 AM EDT Temperature 36.5 ??C (97.7 ??F) 06/06/2011 12:00 AM E DT Respiratory Rate - - Oxygen Saturation - - Inhaled Oxygen Concentration - - Weight 96.4 kg (212 lb 8 oz) 06/06/2011 12:00 AM EDT Height 169.7 cm (5' 6.8 ) 01/11/2011 12:00 AM ED T Body Mass Index 33.48 01/11/2011 12:00 AM EDT Plan of Treatment Health Maintenance Due Date Last Done Comments DTaP,Tdap,and Td Vaccines (7 - Td or Tdap) 06/08/2018 06/08/2008, 03/28/2004, 02/24/1996, Additional history exists Influenza Vaccines (#1) 2024 09/29/2009 COVID-19 Vaccine ( season) 2024 HIB Vaccines Aged Out 05/26/1992, 02/26, 1991 No longer eligible based on patient's age to complete this topic MMR Vaccines Completed 01/24/1994, 12/24/1992 IPV Vaccines Completed 02/24/1996, 12/27, 03/26/1992, Additional history exists Hepatitis B Vaccines Completed 11/29/1998, 06/09/1998, 07/09/1997, Additional history exists Meningococcal Vaccine Aged Out 06/24/2007 No amy brenda eligible based on patient's age to complete this topic HPV Vaccines Completed 04/18/2008, 02/2008, 09/23/2007 Varicella Vaccines Completed 06/08/2008, 01/16/2000 Hepatitis A Vaccines Aged Out No long er eligible based on patient's age to complete this topic Men B Vaccine Aged Out No longer elig ible based on patient's age to complete this topic Pneumococcal Vaccine Aged Out No long er eligible based on patient's age to complete this topic Procedures * Due to [place] [employer] law, this organization might not be sharing sensitive test results. Procedure Name Priority Date/Time Associated Diagnosis Comments CHLAMYDIA AND GONORRHEA, AMPLIFIED Routine 01/14/2011 1:12 PM EDT from Last 3 Months or Most Recently Relevant to Health Maintenance Results * Due to [place] [employer] law, this organization might not be sharing sensitive test results. * Chlamydia and Gonorrhoea, Amplified (01/14/2011 1:12 PM EDT) URINE CHLAMYDIA AMP PROBE NEGATIVE [facility] Comment: NO CHLAMYDIA TRACHOMATIS RNA DETECTED IN THIS PATIENT'S SAMPLE. ? (REFERENCE RANGE/NORMAL VALUE: NOT DETECTED) URINE GC AMP PROBE NEGATIVE [facility] Comment: NO NEISSERIA GONORRHOEAE RNA DETECTED IN THIS PATIENT'S SAMPLE. ? (REFERENCE RANGE/NORMAL VALUE: NOT DETECTED) ? NOTE: THIS TEST USES MEAL PACKER MEDIATED AMPLIFICATION METHOD TO DETECT rRNA FROM C.TRACHOMATIS AND N.GONORRHOEAE. A NEGATIVE RESULT DOES NOT PRECLUDE INFECTION WITH C.TRACHOMATIS OR N.GONORRHOEAE BECAUSE RESULTS ARE DEPENDENT ON ADEQUATE SPECIMEN COLLECTION, ABSENCE OF INHIBITORS, AND SUFFICIENT rRNA TO BE DETECTED. THE APTIMA COMBO2 ASSAY IS NOT INTENDED FOR THE EVALUATION OF SUSPECTED SEXUAL ABUSE OR FOR OTHER MEDICO LEGAL INDICATIONS. IS TRUE FOR ALL NON CULTURE METHODS, A POSITIVE SPECIMEN OBTAINED FROM A PATIENT AFTER THERAPEUTIC TREATMENT CANNOT BE INTERPRETED INDICATING THE PRESENCE OF VIABLE C.TRACHOMATIS OR N.GONORRHOEAE. THERAPEUTIC FAILURE OR SUCCESS CANNOT BE DETERMINED WITH THE APTIMA COMBO2 ASSAY SINCE NUCLEIC ACID MAY PERSIST FOLLOWING APPROPRIATE ANTIMICROBIAL THERAPY. A NEGATIVE URINE RESULT FOR A PATIENT WHO IS CLINICALLY SUSPECTED OF HAVING A CHLAMYDIAL OR GONOCOCCAL INFECTION DOES NOT RULE OUT THE PRESENCE OF C.TRACHOMATIS OR N.GONORRHOEAE IN THE UROGENITAL TRACT. TESTING OF AN ENDOCERVICAL(FEMALE) OR URETHRAL(MALE) SPECIMEN IS RECOMMENDED IF THERE IS HIGH CLINICAL SUSPICION OF INFECTION. PRESERVCYT LIQUID PAP AND URINE SAMPLING ARE NOT DESIGNED TO REPLACE CERVICAL EXAMS AND ENDOCERVICAL SAMPLES FOR DIAGNOSIS OF FEMALE UROGENITAL INFECTIONS. PATIENTS MAY HAVE CERVICITIS, URETHRITIS, URINARY TRACT INFECTIONS, OR VAGINAL INFECTIONS DUE TO OTHER CAUSES OR CONCURRENT INFECTIONS WITH OTHER AGENTS. 01/14/2011 1:12 PM EDT Narrative [facility] - 01/14/2011 1:12 PM EDT URINE CHLAMYDIA GC AMP PROBE us Lizeth Chavez NP LAB MICROBIOLOGY - GENERAL ORD ERABLES Final Result [facility] [address] [place] [address], [place] from Last 3 Months or Most Recently Relevant to Health Maintenance Care Teams Black Off Worker Relationship Specialty Start Date End Date Lizeth Chavez NP PCP - General 06/06/17
--- OUTSIDE RECORDS SUMMARY | 2025-03-01 09:54 | XMS_ITS | Clinical Summary ---
Author Organization [facility] Address [address] [place] [address] Care Team Providers Care Painter Supervisor Name Role Phone Edgar Choudhury MD Primary Care Provider [phone] Social History Tobacco Use Types Packs/Day Years Used Date Smoking Tobacco: Never Assessed Comments Unknown Sex and Gender Information Value Date Recorded Sex Assigned at Not on file Legal Sex Female 5:38 AM EST Gender Identity Not on file Sexual Orientation Not on file Plan of Treatment Health Maintenance Due Date Last Done Comments DTaP,Tdap,and Td Vaccines (1 - Tdap) 2010 Hepatitis B Vaccines (1 of 3 - 19+ 3-dose series) 2010 Cervical Cancer Screening: P ap Smear 2012 COVID-19 Vaccine ( - 2023-2 5 season) 2024 Influenza Vaccine (Season Ended) 2025 HIB Vaccines Aged Out No longer eligi ble based on patient's age to complete this topic HPV Vaccines Aged Out No longer eligi ble based on patient's age to complete this topic Hepatitis A Vaccines Aged Out No long er eligible based on patient's age to complete this topic IPV Vaccines Aged Out No longer eligi ble based on patient's age to complete this topic MMR Vaccines Aged Out No longer eligi ble based on patient's age to complete this topic Meningococcal ACWY Vaccine Aged Out N o longer eligible based on patient's age to complete this topic Meningococcal B Vaccine Aged Out No l onger eligible based on patient's age to complete this topic Pneumococcal Vaccine: Pediat rics (0 to 5 Years) and At-Risk Patients (6 to 64 Years) Aged Out No longer eligible b ased on patient's age to complete this topic RSV Immunization Patients Un ernestine 20 months Aged Out No longer eligible b ased on patient's age to complete this topic Varicella Vaccines Aged Out No longer eligible based on patient's age to complete this topic Care Teams Painter Supervisor Relationship Specialty Start Date End Date Edgar Choudhury MD [address] [place] [address] Dr Joshua MA PCP - General Internal Medicine 03/27/18
== END 2025-03-01 11:27 | disposition home or self-care (01) ==
LOC: HO.HWSM 09:06
PROVIDERS: PCP Internal Medicine; Visit Provider Advanced Practice Midwife
DX: Z01.419 Encounter for gynecological examination (general) (routine) without abnormal findings (principal); N92.6 Irregular menstruation, unspecified; Z20.2 Contact with and (suspected) exposure to infections with a predominantly sexual mode of transmission; E66.01 Morbid (severe) obesity due to excess calories; Z90.79 Acquired absence of other genital organ(s)
CPT/HCPCS: 99395; 99459

== ENCOUNTER 2025-03-01 09:06 | Outpatient (REF) | payer OTHER, SELFPAY ==
--- OUTSIDE RECORDS SUMMARY | 2025-03-01 16:44 | XMS_ITS | Encounter Summary ---
Author Organization [employer] Address [address] [facility] 7t [place] [address] Care Team Providers Care Manager Erp Name Role Phone Unavailable Primary Care Provider Unavailabl e Reason for Visit * Reason Onset Date Comments work note fax 04/07/2024 Encounter Details Date Type Department Care Team ([facility] st Contact Info) Description 04/07/2024 Telephone [facility] [address], [place] [phone] [place], [place] [address], [place] [phone] work note fax Social History Tobacco Use [...] to work if possibel. She works at [employer]. Fax number [phone] * Telephone Encounter - Una Rand - [...]
--- OUTSIDE RECORDS SUMMARY | 2025-03-01 16:44 | XMS_ITS | Encounter Summary ---
Author Organization [facility] Address [address] [place] [address] Phone Care Team Providers Care Kitchen Bath Designer Name Role Phone Lizeth Chavez NP Primary Care Provider Unavail able Encounter Details Date Type Department Care Team (Late st Contact Info) Description 06/12/2017 Conversion Encounter [facility] - [address] [address] Social History Tobacco Use Types Packs/Day Years [...] on filedocumented in this encounter Care Teams Kitchen Bath Designer Relationship Specialty Start Date End Date Lizeth Chavez NP PCP - General 06/06/17 documented as of this encounter
--- OUTSIDE RECORDS SUMMARY | 2025-03-01 16:44 | XMS_ITS | Clinical Summary ---
Author Organization [facility] Address [address] [place] [address] Phone Care Team Providers Care Product Mgr Name Role Phone Lizeth Chavez NP Primary [...] complete this topic Procedures * Due to [place] [employer] law, this organization might not be sharing sensitive test results. Procedure Name Priority Date/Time Associated Diagnosis Comments CHLAMYDIA AND GONORRHEA, AMPLIFIED Routine 01/14/2011 1:12 PM EDT from Last 3 Months or Most Recently Relevant to Health Maintenance Results * Due to [place] [employer] law, this organization might not be sharing sensitive test results. * Chlamydia and Gonorrhoea, Amplified (01/14/2011 1:12 PM EDT) URINE CHLAMYDIA AMP PROBE NEGATIVE [facility] Comment: NO CHLAMYDIA TRACHOMATIS RNA DETECTED IN THIS PATIENT'S SAMPLE. ? (REFERENCE RANGE/NORMAL VALUE: NOT DETECTED) URINE GC AMP PROBE NEGATIVE [facility] Comment: NO NEISSERIA GONORRHOEAE RNA DETECTED IN THIS PATIENT'S SAMPLE. ? (REFERENCE RANGE/NORMAL VALUE: NOT DETECTED) ? NOTE: THIS TEST USES HAND BOOKED FOLDER AND STITCHER MEDIATED AMPLIFICATION METHOD TO DETECT rRNA FROM [...] OTHER AGENTS. 01/14/2011 1:12 PM EDT Narrative [facility] - 01/14/2011 1:12 PM EDT URINE CHLAMYDIA GC AMP PROBE us Lizeth Chavez NP LAB MICROBIOLOGY - GENERAL ORD ERABLES Final Result [facility] [address] [place] [address], [place] from Last 3 Months or Most Recently Relevant to Health Maintenance Care Teams Product Mgr Relationship Specialty Start Date End Date Lizeth Chavez NP PCP - General 06/06/17
--- OUTSIDE RECORDS SUMMARY | 2025-03-01 16:44 | XMS_ITS | Encounter Summary ---
Author Organization [employer] Address [address] [facility] [address]t [place] [address] Care Team Providers Care Jingle Writer Name Role Phone Unavailable Primary Care Provider Unavailabl e Encounter Details Date Type Department Care Team (Latest Contact Info) Description 02/27/2021 Abstract [facility] CONVERSIONS Dental, Provider, DDS Social History [...]
--- OUTSIDE RECORDS SUMMARY | 2025-03-01 16:44 | XMS_ITS | Clinical Summary ---
Author Organization [facility] Address [address] [place] [address] Care Team Providers Care Coil Taper Name Role Phone Edgar Choudhury MD Primary Care Provider [phone] Social History Tobacco Use Types Packs/Day Years [...] age to complete this topic Care Teams Coil Taper Relationship Specialty Start Date End Date Edgar Choudhury MD [address] [place] [address] Dr Joshua MA PCP - General Internal Medicine 03/27/18
--- OUTSIDE RECORDS SUMMARY | 2025-03-01 16:45 | XMS_ITS | Encounter Summary ---
Author Organization [facility] Address [address] [place] [address] Phone Care Team Providers Care Regulator Mechanic Name Role Phone Lizeth Chavez NP Primary Care Provider Unavail able Encounter Details Date Type Department Care Team (Late st Contact Info) Description 01/15/2011 Documentation [facility] [place] [facility] [address] [place] [address] Family Medicine, Physician [facility] [address] [place], [place] [phone] Social History Tobacco Use Types Packs/Day Years [...] on filedocumented in this encounter Care Teams Regulator Mechanic Relationship Specialty Start Date End Date Lizeth Chavez NP PCP - General 06/06/17 documented as of this encounter
--- OUTSIDE RECORDS SUMMARY | 2025-03-01 16:45 | XMS_ITS | Encounter Summary ---
Author Organization [facility] Address [address] [place] [address] Phone Care Team Providers Care Mesh Worker Name Role Phone Lizeth Chavez NP Primary Care Provider Unavail able Encounter Details Date Type Department Care Team (Late st Contact Info) Description 06/02/2012 Documentation [facility] Family Medicine [address] [place] [address] Family Medicine, Physician [facility] [address] [place], [place] [phone] Social History Tobacco Use Types Packs/Day Years [...] on filedocumented in this encounter Care Teams Mesh Worker Relationship Specialty Start Date End Date Lizeth Chavez NP PCP - General 06/06/17 documented as of this encounter
--- OUTSIDE RECORDS SUMMARY | 2025-03-01 16:45 | XMS_ITS | Clinical Summary ---
Author Organization [employer] Address [address] [facility] [address] [place] [address] Care Team Providers Care Publishing Systems Analyst Name Role Phone Unavailable Primary Care Provider Unavailabl e Allergies No known active allergies Medications desogestrel-ethi nyl estradiol (Azurette) 0.15-0.02/0.01 MG (16/03) tablet Take 1 tablet by mouth at bed time. Active Encounters Date Type Department Care Team Description 03/01/2025 Telephone [facility] MEDIC[facility] [address] [place], [place] [phone] Angel Arango MD new patient v from Last 3 Months Social History Tobacco Use Types Packs/Day Years [...] Most Recently Relevant to Health Maintenance Insurance [place] [facility] [place] D[place] - HSN PARTIAL (MEDICAID) [id number]
--- OUTSIDE RECORDS SUMMARY | 2025-03-01 16:45 | XMS_ITS | Encounter Summary ---
Author Organization [employer] Address [address] [facility] [address] [place] [address] Care Team Providers Care Vp Mobile Products Name Role Phone Unavailable Primary Care Provider Unavailabl e Reason for Visit * Reason Onset Date Comments new patient v 03/01/2025 Encounter Details Date Type Department Care Team ([facility] st Contact Info) Description 03/01/2025 Telephone [facility] MEDICINE [address] [place] [address] Angel Arango MD [address] [place] [address] new patient v Social History Tobacco Use Types Packs/Day Years [...] encounter Miscellaneous Notes * Telephone Encounter - Steve Castañeda - 03/01/2025 10:39 AM EDT Has been added to [facility] wait list documented in this encounter Plan of Treatment Not on file documented as of this encounter Visit Diagnoses Not on filedocumented in this encounter
[2025-03-02 07:35] LABS: CT PCR NOT DETECTED (Not Detect.); NG PCR NOT DETECTED (Not Detect.)
[2025-03-02 11:50] LABS: Bacterial Vaginosis PCR POSITIVE (Negative); Candida Group PCR NOT DETECTED (Not Detect); Candida glab krusei PCR NOT DETECTED (Not Detect); Trichomonas vaginalis PCR NOT DETECTED (Not Detect)
== END 2025-03-01 09:07 | disposition home or self-care (01) ==
LOC: HO.LNP 09:06
PROVIDERS: PCP Internal Medicine; Visit Provider Advanced Practice Midwife
DX: Z01.419 Encounter for gynecological examination (general) (routine) without abnormal findings (principal); N92.6 Irregular menstruation, unspecified; Z20.2 Contact with and (suspected) exposure to infections with a predominantly sexual mode of transmission
CPT/HCPCS: 81515; 87491; 87591

== ENCOUNTER 2025-03-01 10:50 | Outpatient (REF) | payer OTHER, SELFPAY ==
--- OUTSIDE RECORDS SUMMARY | 2025-03-01 12:31 | XMS_ITS | Encounter Summary ---
Author Organization [facility] Address [address] [place] [address] Phone Care Team Providers Care Sheep Farm Worker Name Role Phone Lizeth Chavez NP Primary Care Provider Unavail able Encounter Details Date Type Department Care Team (Late st Contact Info) Description 01/15/2011 Documentation [facility] Family Medicine [address] [place] [address] Family Medicine, Physician [facility] [address] [place], [place] [phone] Social History Tobacco Use Types Packs/Day Years [...] on filedocumented in this encounter Care Teams Sheep Farm Worker Relationship Specialty Start Date End Date Lizeth Chavez NP PCP - General 06/06/17 documented as of this encounter
--- OUTSIDE RECORDS SUMMARY | 2025-03-01 12:31 | XMS_ITS | Clinical Summary ---
Author Organization [facility] Address [address] [place] [address] Care Team Providers Care Retail Sales Consultant Name Role Phone Edgar Choudhury MD Primary Care Provider [phone] Social History Tobacco Use Types Packs/Day Years [...] age to complete this topic Care Teams Retail Sales Consultant Relationship Specialty Start Date End Date Edgar Choudhury MD [address] [place] [address] Dr Joshua [place] PCP - General Internal Medicine 03/27/18
--- OUTSIDE RECORDS SUMMARY | 2025-03-01 12:31 | XMS_ITS | Encounter Summary ---
Author Organization [facility] Address [address] [place] [address] Phone Care Team Providers Care Actuarial Assistant Name Role Phone Lizeth Chavez NP Primary Care Provider Unavail able Encounter Details Date Type Department Care Team (Late st Contact Info) Description 06/02/2012 Documentation [facility] Family Medicine [address] [place] [address] Family Medicine, [facility]ician [facility] [address] [place], [place] [id number] Social History Tobacco Use Types Packs/Day Years [...] on filedocumented in this encounter Care Teams Actuarial Assistant Relationship Specialty Start Date End Date Lizeth Chavez NP PCP - General 06/06/17 documented as of this encounter
--- OUTSIDE RECORDS SUMMARY | 2025-03-01 12:31 | XMS_ITS | Encounter Summary ---
Author Organization [facility] Address [address] [place] [address] Phone Care Team Providers Care Manager Background Name Role Phone Lizeth Chavez NP Primary Care Provider Unavail able Encounter Details Date Type Department Care Team (Late st Contact Info) Description 06/12/2017 Conversion Encounter [facility] - [address] [address] Social History Tobacco Use Types Packs/Day Years [...] on filedocumented in this encounter Care Teams Manager Background Relationship Specialty Start Date End Date Lizeth Chavez NP PCP - General 06/06/17 documented as of this encounter
--- OUTSIDE RECORDS SUMMARY | 2025-03-01 12:31 | XMS_ITS | Clinical Summary ---
Author Organization [facility] Address [address] [place] [address] Phone Care Team Providers Care Line Rider Name Role Phone Lizeth Chavez NP Primary [...] complete this topic Procedures * Due to [place] [employer] law, this organization might not be sharing sensitive test results. Procedure Name Priority Date/Time Associated Diagnosis Comments CHLAMYDIA AND GONORRHEA, AMPLIFIED Routine 01/14/2011 1:12 PM EDT from Last 3 Months or Most Recently Relevant to Health Maintenance Results * Due to [place] [employer] law, this organization might not be sharing sensitive test results. * Chlamydia and Gonorrhoea, Amplified (01/14/2011 1:12 PM EDT) URINE CHLAMYDIA AMP PROBE NEGATIVE [facility] Comment: NO CHLAMYDIA TRACHOMATIS RNA DETECTED IN THIS PATIENT'S SAMPLE. ? (REFERENCE RANGE/NORMAL VALUE: NOT DETECTED) URINE GC AMP PROBE NEGATIVE [facility] Comment: NO NEISSERIA GONORRHOEAE RNA DETECTED IN THIS PATIENT'S SAMPLE. ? (REFERENCE RANGE/NORMAL VALUE: NOT DETECTED) ? NOTE: THIS TEST USES WOUND CARE SPECIALIST MEDIATED AMPLIFICATION METHOD TO DETECT rRNA FROM [...] OTHER AGENTS. 01/14/2011 1:12 PM EDT Narrative [facility] - 01/14/2011 1:12 PM EDT URINE CHLAMYDIA GC AMP PROBE us Lizeth Chavez NP LAB MICROBIOLOGY - GENERAL ORD ERABLES Final Result [facility] [address] [place] [address], [place] from Last 3 Months or Most Recently Relevant to Health Maintenance Care Teams Line Rider Relationship Specialty Start Date End Date Lizeth Chavez NP PCP - General 06/06/17
[2025-03-01 13:50] LABS: Mean Corpuscular HGB Conc 35.1 g/dl (31.0-35.0); Mean Corpuscular Hemoglobin 31.6 pg (27.0-33.0); Mean Corpuscular Volume 89.8 fL (80.0-98.0); Platelet Count 262 X10*3/uL (160-400); Red Blood Count 4.12 X10*6/uL (4.20-5.50); Red Cell Distribution Width 12.5 % (11.0-16.0); White Blood Count 5.5 X10*3/uL (4.8-10.8)
[2025-03-01 13:56] LABS: Estimated Average Glucose 97 mg/dL; Hemoglobin A1C 105.2081 umol/L; Total Hemoglobin (HGBA1C) 3327.1729 umol/L
[2025-03-01 15:21] LABS: Anion Gap 10 (12-20)
[2025-03-01 15:23] LABS: Alanine Aminotransferase 16 U/L (0-31); Albumin Level 3.7 g/dL (3.5-5.0); Aspartate Amino Transferase 23 U/L (5-31); Bilirubin Total 0.4 mg/dL (0.0-1.0); Blood Urea Nitrogen 12 mg/dL (9-16); Calcium 8.6 mg/dL (8.4-10.2); Carbon Dioxide 26 mmol/L (22-29); Chloride 107 mmol/L (96-108); Cholesterol 113 mg/dL (<200); Estimated Glomerular Filt Rate > 60; Glucose Fasting 86 mg/dL (60-99); HDL Cholesterol 47 mg/dL (>40); LDL Cholesterol Calculated 60 mg/dL (<100); Potassium 3.9 mmol/L (3.3-5.1); Sodium 139 mmol/L (135-145); Triglycerides 32 mg/dL (<150)
[2025-03-01 15:25] LABS: Thyroid Stimulating Hormone 2.09 uIU/mL (0.32-4.0)
[2025-03-01 18:20] LABS: Alkaline Phosphatase 67 U/L (39-117)
[2025-03-02 04:19] LABS: Syphilis Screen Nonreactive (Nonreactive)
[2025-03-02 04:24] LABS: DHEA Sulfate 173 mcg/dL (19-237); Prolactin 7.4 ng/mL
[2025-03-02 04:58] LABS: HBsAGNum1 0.33 S/CO (0.00-0.99); HIV AB/AG Nonreactive (Nonreactive); HIV Num 1 0.06 S/CO (0.00-0.99); Hepatitis B Surface Antigen Negative (Negative); ~HepC Num1 0.15 S/CO (0.00-0.79); ~Hepatitis C Antibody Nonreactive (Nonreactive)
[2025-03-05 14:08] LABS: Testosterone, Free 2.9 pg/mL (0.1-6.4); Testosterone, Total 30 ng/dL (2-45)
== END 2025-03-01 10:51 | disposition home or self-care (01) ==
LOC: HO.HHCL 10:50
PROVIDERS: Visit Provider Advanced Practice Midwife
DX: Z01.419 Encounter for gynecological examination (general) (routine) without abnormal findings (principal); Z20.2 Contact with and (suspected) exposure to infections with a predominantly sexual mode of transmission; E66.01 Morbid (severe) obesity due to excess calories; N92.6 Irregular menstruation, unspecified; Z13.1 Encounter for screening for diabetes mellitus
CPT/HCPCS: 36415; 80053; 80061; 82627; 83036; 84146; 84402; 84403; 84443; 85027; 86780; 86803; 87340; 87389; 99395; 99459

== ENCOUNTER 2025-03-25 15:46 | Outpatient (AMB) | payer OTHER, SELFPAY ==
--- OUTSIDE RECORDS SUMMARY | 2025-03-25 15:49 | XMS_ITS | Encounter Summary ---
Author Organization [facility] Address [address] [place] [address] Phone Care Team Providers Care Electro Optical Engineer Name Role Phone Lizeth Chavez NP Primary Care Provider Unavail able Encounter Details Date Type Department Care Team (Late st Contact Info) Description 06/12/2017 Conversion Encounter [facility] - [address] [address] Social History Tobacco Use Types Packs/Day Years [...] on filedocumented in this encounter Care Teams Electro Optical Engineer Relationship Specialty Start Date End Date Lizeth Chavez NP PCP - General 06/06/17 documented as of this encounter
--- NOTE | 2025-03-25 16:01 | A.OFFPC_ITS ---
Vital Signs 03/25/25 16:03 Height 5 ft 6 in Weight 115.666 kg BMI 41.2 BP 112/80 Respiration 14 Pulse 84 Pulse Source Pulse Oximeter Temp 97.5 F Temp Source Temporal Artery Scan Pulse Oximetry (%) 96 Intake Visit Reasons: Routine Hat Blocking Machine Operator Required: No Accompanied by: Self / Same As Patient Allergies No Known Allergies [No Known Allergies*] Allergy (Verified 03/25/25 16:01) HPI HPI Comments History of Present Illness Details 34-year-old female with history of class 3 obesity presents to the office today to establish care. She reports she has not actively working on weight loss except for increased cardiovascular activity. She states that she has been walking several miles with brisk walking. She is not always following a healthy diet. She is concerned about chronic fatigue. She states she is always tired despite getting adequate hours of sleep. Denies any depression. Reports feeling tired all day but denies any narcolepsy. She does report snoring under she has obstructive sleep apnea. She did recently have labs completed by android framework developer showing normal renal function electrolyte levels. Hemoglobin A1c was 5.0%. Hepatic function within normal limits. Cholesterol level is at goal. TSH 2.09. Hormone testing within normal limits. No anemia. ROS: General: No fevers, malaise, unintentional weight loss HEENT: No blurred vision, diplopia. No sore throat, nasal congestion, rh inorrhea, sinus pain, ear pain Cardiovascular: No chest pain, palpitations, or leg edema Respiratory: No shortness of breath, wheezing, cough GI: No abdominal pain, nausea, vomiting, diarrhea, constipation, melena, hematochezia : No dysuria, hematuria, increased urinary frequency, decreased urinary output MSK: No myalgia, back pain Neuro: No headaches, weakness, paresthesias. see hpi Skin: No rashes or lesions EXAM: Constitutional - Awake and Alert, No apparent distress Eyes - PERRLA, EOMI Cardiovascular - S1S2, RRR, No edema Respiratory - Normal lung expansion, Normal respiratory effort, No respiratory distress, CTA bilaterally Extremities - no calf tenderness bilaterally, no swelling Skin - Warm/Dry Neurological - Alert & oriented x3 Psychological - Appropriate affect [facility] Medical History , ectopic, tubal Surgical History History of salpingectomy Family History Maternal Grandmother Uterine cancer Maternal Grandfather Prostate cancer metastatic to bone Social History Household Members: None Housing: Apartment Do you presently have visiting nurse or other home services: No Alcohol intake: never Patient Tobacco Use Status: Never used Tobacco service: No Current occupational status: employed Sexual orientation: Straight/Heterosexual Gender identity: Female Female Reproductive History Menstrual Age of Menarche: 12 Questionnaire PHQ-9 Over the last 2 weeks, how often have you been bothered by any of the following problems? 1. Little interest or pleasure in doing things: several days 2. Feeling down, depressed, or hopeless: several days 3. Trouble falling or staying asleep, or sleeping too much: more than half the days 4. Feeling tired or having little energy: more than half the days 5. Poor appetite or overeating: several days 6. Feeling bad about yourself - or that you are a failure or have let yourself or your family down: not at all 7. Trouble concentrating on things, such as reading the newspaper or watching television: not at all 8. Moving or speaking so slowly that other people could have noticed. Or the opposite - being so fidgety or restless that you have been moving around a lot more than usual: not at all 9. Thoughts that you would be better off or of hurting yourself in some way: not at all Total score: 7 Source: Developed by Drs. Abraham Helms, Brittney Huang, Irineo Odom and colleagues, with an educational pretty from [employer]. Thrive Questionnaire I am a: Patient What is your living situation today?: I have a steady place to live Within the past 12 months, did the food you bought not last and you didn't have the money to get more?: Never true Within the past 12 months, did you worry whether your food would run out before you got money to buy more?: Never true Do you have trouble paying for medicines?: No Do you have trouble getting transportation to medical appointments?: No Do you have trouble paying your heating and electricity bill?: No Do you have trouble taking care of your child, family member or friend?: No Do you have trouble with day-to-day activities such as bathing, preparing meals, shopping, managing finances, etc.?: No Are you currently unemployed and looking for a job?: No Are you interested in more education?: No Please select the resources that you would like help with: None THRIVE Score: 0 JOSE-7 AMB Questionnaire JOSE-7 Date JOSE - 7 assessed: 03/25/25 Feeling nervous, anxious, or on edge: 0 = Not at all Not being able to stop or control worryin = Not at all Worrying too much about different things: 1 = Several days Trouble relaxin = Not at all Being so restless that it is hard to sit still: 0 = Not at all Becoming easily annoyed or irritable: 1 = Several days Feeling afraid as if something awful might happen: 0 = Not at all Total JOSE-7 score (0-4 normal; 5-9 mild; 10-14 moderate; 15-21 severe): 2 Source: Developed by Drs. Abraham Helms, Brittney Huang, Irineo Odom and colleagues, with an educational pretty from [employer]. Physical exam (Primary Care) Vital Signs: Last Vital Signs Temp 97.5 F 03/25/25 16:03 Pulse 84 03/25/25 16:03 Resp 14 03/25/25 16:03 BP 112/80 03/25/25 16:03 Pulse Ox 96 03/25/25 16:03 BMI result Body Mass Index 41.2 Tobacco/Smoking Status: Tobacco use Status Patient Tobacco Use Status Never used Tobacco 03/25/25 16:06 PHQ-9: PHQ-9 Score PHQ-9: Total score 7 03/25/25 17:03 Coding Level of Care Code New Pt Level 4 (36007) Complex EM visit Add On G2211 Diagnoses Fatigue R53.83 Obesity, morbid, BMI 40.0-49.9 E66.01 Daytime hypersomnolence G47.19 Assessment & Plan Assessment & Plan (1) Fatigue: Code(s): R53.83 - Other fatigue Category: Medical Plan: Labs reviewed. No obvious cause of symptoms on labs thusfar. Check iron profile, vit d, and b12. Given daytime hypersomnolance will also check sleep study to r/o ANEUDY given coinciding snoring and morbid obesity (2) Obesity, morbid, BMI 40.0-49.9: Code(s): E66.01 - Morbid (severe) obesity due to excess calories Category: Medical Plan: Weight loss strongly encouraged. Recommend diet lower in refined sugars, simple carbohydrates, and highly processed foods. Recommend increased protein intake as well as vegetables and fruits. Recommend regular cardiovascular as well as resistance activities/exercise. She is not interested in referral to weight management clinic. (3) Daytime hypersomnolence: Code(s): G47.19 - Other hypersomnia Category: Medical Plan: Concern for ANEUDY. Sleep study ordered. Weight loss efforts encouraged Plan Follow-up in the office for annual physical exam. Orders: Orders IRON PROFILE 03/25/25 R53.83 - Other fatigue Vitamin D 25-OH Total 03/25/25 R53.83 - Other fatigue Vitamin B12 03/25/25 R53.83 - Other fatigue
[2025-03-25 16:03] VITALS: BP 112/80; PULSE 84; RESP 14; TEMP 36.4; O2SAT 96; BMI 41.2
== END 2025-03-25 16:34 | disposition home or self-care (01) ==
LOC: HO.HMCHD 15:46
PROVIDERS: PCP Physician Assistant; Visit Provider Physician Assistant
DX: R53.83 Other fatigue (principal); E66.01 Morbid (severe) obesity due to excess calories; G47.19 Other hypersomnia

== ENCOUNTER 2025-03-25 15:46 | Outpatient (REF) | payer OTHER, SELFPAY ==
[2025-03-25 17:46] LABS: Iron 63 mcg/dL (30-160); Percent Iron Saturation 26 % (15-50); Total Iron Binding Capacity 241 mcg/dL (228-428); Unsaturated Iron Binding 178 ug/dL
[2025-03-25 18:02] LABS: Vitamin D 25-OH Total 16.9 ng/mL (>30)
[2025-03-25 18:08] LABS: Vitamin B12 345 pg/mL (200-900)
== END 2025-03-25 15:47 | disposition home or self-care (01) ==
LOC: HO.LAB 15:46
PROVIDERS: PCP Physician Assistant; Visit Provider Physician Assistant
DX: Z76.89 Persons encountering health services in other specified circumstances (principal); R53.83 Other fatigue; E66.01 Morbid (severe) obesity due to excess calories; Z68.41 Body mass index [BMI] 40.0-44.9, adult; G47.19 Other hypersomnia
CPT/HCPCS: 36415; 82306; 82607; 83540; 99202

== ENCOUNTER → 2025-07-01 14:23 | Outpatient (AMB) | payer OTHER, SELFPAY ==
[2025-07-01 14:27] VITALS: BP 124/68; PULSE 79; TEMP 36.7; O2SAT 97; BMI 42.0
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
--- OUTSIDE RECORDS SUMMARY | 2025-07-01 14:46 | XMS_ITS | Clinical Summary ---
Author Organization [facility] Address [address] [place] [id number] Phone Care Team Providers Care Bond Runner Name Role Phone Lizeth Chavez NP Primary [...] 80 04/11/2010 12:00 AM EDT Temperature 36.5 C (97.7 F) 06/06/2011 12:00 AM EDT Respiratory Rate - - Oxygen Saturation - [...] 02/24/1996, Additional history exists Influenza Vaccines (#1) 2025 09/29/2009 COVID-19 Vaccine ( season) 2025 HIB Vaccines Aged Out 05/26/1992, 02/26, 1991 [...] complete this topic Procedures * Due to [place] law, this organization might not be sharing sensitive test results. Procedure Name Priority Date/Time Associated Diagnosis Comments CHLAMYDIA AND GONORRHEA, AMPLIFIED Routine 01/14/2011 1:12 PM EDT from Last 3 Months or Most Recently Relevant to Health Maintenance Results * Due to [place] law, this organization might not be sharing sensitive test results. * Chlamydia and Gonorrhoea, Amplified (01/14/2011 1:12 PM EDT) URINE CHLAMYDIA AMP PROBE NEGATIVE [facility] Comment: NO CHLAMYDIA TRACHOMATIS RNA DETECTED IN THIS PATIENT'S SAMPLE. (REFERENCE RANGE/NORMAL VALUE: NOT DETECTED) URINE GC AMP PROBE NEGATIVE [facility] Comment: NO NEISSERIA GONORRHOEAE RNA DETECTED IN THIS PATIENT'S SAMPLE. (REFERENCE RANGE/NORMAL VALUE: NOT DETECTED) NOTE: THIS TEST USES GERIATRIC PHYSICIAN MEDIATED AMPLIFICATION METHOD TO DETECT rRNA FROM [...] Final Result [facility] [address] [place] [address], from Last 3 Months or Most Recently Relevant to Health Maintenance Care Teams Bond Runner Relationship Specialty Start Date End Date Lizeth Chavez NP PCP - General 06/06/17
--- OUTSIDE RECORDS SUMMARY | 2025-07-01 14:46 | XMS_ITS | Encounter Summary ---
Author Organization [facility] Address [address] [place] [phone] Phone Care Team Providers Care Tariff Supervisor Name Role Phone Lizeth Chavez NP Primary Care Provider Unavail able Encounter Details Date Type Department Care Team (Late st Contact Info) Description 06/12/2017 Conversion Encounter [facility] [place] - [address] [address] Social History Tobacco Use Types Packs/Day Years [...] on filedocumented in this encounter Care Teams Tariff Supervisor Relationship Specialty Start Date End Date Lizeth Chavez NP PCP - General 06/06/17 documented as of this encounter
--- OUTSIDE RECORDS SUMMARY | 2025-07-01 14:46 | XMS_ITS | Encounter Summary ---
Author Organization [facility] Address [address] [place] [id number] Phone Care Team Providers Care Metalizing Machine Operator Automatic Name Role Phone Lizeth Chavez NP Primary Care Provider Unavail able Encounter Details Date Type Department Care Team (Late st Contact Info) Description 06/02/2012 Documentation [facility] [place] Family Medicine [address] [place] [address] Family Medicine, Physician [facility] [address] [place], [place] [address] Social History Tobacco Use Types Packs/Day Years [...] on filedocumented in this encounter Care Teams Metalizing Machine Operator Automatic Relationship Specialty Start Date End Date Lizeth Chavez NP PCP - General 06/06/17 documented as of this encounter
--- OUTSIDE RECORDS SUMMARY | 2025-07-01 14:46 | XMS_ITS | Clinical Summary ---
Author Organization [facility] Address [address] [place] [address] Care Team Providers Care Motorcycle Deliverer Name Role Phone Edgar Choudhury MD Primary Care Provider [phone] Social History Tobacco Use Types Packs/Day Years [...] Cervical Cancer Screening: P ap Smear 2012 Depression Screening 10/27/2024 COVID-19 Vaccine ( - 2023-2 5 season) 2025 Influenza Vaccine (#1) 2025 HIB Vaccines Aged Out No longer [...] 5 Years) and At-Risk Patients (6 to 49 Years) Aged Out No longer eligible b ased on patient's age to complete this topic RSV Immunization Patients Un ernestine 20 months Aged Out No longer eligible b ased on patient's age to complete this topic Varicella Vaccines Aged Out No longer eligible based on patient's age to complete this topic Care Teams Motorcycle Deliverer Relationship Specialty Start Date End Date Edgar Choudhury MD [address] [place] [address] Dr Joshua MA PCP - General Internal Medicine 03/27/18
--- OUTSIDE RECORDS SUMMARY | 2025-07-01 14:46 | XMS_ITS | Encounter Summary ---
Author Organization [facility] Address [address] [place] [address] Phone Care Team Providers Care Corncob Pipe Supervisor Name Role Phone Lizeth Chavez NP Primary Care Provider Unavail able Encounter Details Date Type Department Care Team (Late st Contact Info) Description 01/15/2011 Documentation [facility] [place] [address] [place] [address] Family Medicine, Physician [facility] [address] [place], [place] [phone] Social History Tobacco Use Types Packs/Day Years [...] on filedocumented in this encounter Care Teams Corncob Pipe Supervisor Relationship Specialty Start Date End Date Lizeth Chavez NP PCP - General 06/06/17 documented as of this encounter
--- OUTSIDE RECORDS SUMMARY | 2025-07-01 14:46 | XMS_ITS | Encounter Summary ---
Author Organization [employer] Address [address] [facility] [address] [place] [address] Care Team Providers Care Manager Sterile Processing Name Role Phone Unavailable Primary Care Provider Unavailabl e Encounter Details Date Type Department Care Team (Latest Contact Info) Description 02/27/2021 Abstract [facility] CONVERSIONS Dental, Provider, DDS Social History Tobacco [...]
--- OUTSIDE RECORDS SUMMARY | 2025-07-01 14:46 | XMS_ITS | Encounter Summary ---
Author Organization [employer] Address [address] [facility] [address] [place] [address] Care Team Providers Care Harness Brusher Name Role Phone Unavailable Primary Care Provider Unavailabl e Reason for Visit * Reason Onset Date Comments work note fax 04/07/2024 Encounter Details Date Type Department Care Team ([facility] st Contact Info) Description 04/07/[address] [facility] ADULT DENTAL [address], [place] [phone] [place], [place] [address], [place] [phone] work note fax Social History Tobacco Use [...] to work if possibel. She works at [employer]. Fax number [phone] * Telephone Encounter - Una Rand - [...]
--- OUTSIDE RECORDS SUMMARY | 2025-07-01 14:47 | XMS_ITS | Clinical Summary ---
Author Organization [employer] Address [address] [facility] [address] [place] [address] Care Team Providers Care Etl Architect Name Role Phone Unavailable Primary Care Provider [...] 1991 Lipid Panel 1991 SDOH Screening 1991 Disability Screening 1991 Alcohol/Substance Use Screening 2003 Tobacco Screening 2003 Family Planning (PISQ) 2006 Hepatitis C Screening 2009 Pap Smear 2012 Dental Oral Exam 08/31/2021 02/27/2021, 12/03/2013 Dental Prophylaxis 08/31/2021 02/27/2021, 0 04/16/2018, 07/28/2014, Additional history exists Cervical Cancer Screening 2021 HPV/Cotest 2021 Dental X-Ray: Bitewings 02/28/2022 02/27/2021, 12/03 COVID-19 Vaccine ( season) 2025 02/27/2022, 02/05/2022 Influenza Vaccine (#1) 2025 3, 09/29/2009, 09/29/2009 Dental X-Ray: Full Mouth [...] Years) and At-Risk Patients (6 to 49) Years Aged Out No longer eligible based on [...] Most Recently Relevant to Health Maintenance Insurance [place] [facility] [place] (MEDICAID) * Guarantor: Caity Antony Account Type Relation to Patient Date of Phone Billing Address Personal/Family Self [place] * Guarantor: Caity Antony Account Type Relation to Patient Date of Phone Billing Address Personal/Family [place]
== END ==
LOC: HO.HMCHD 14:23
PROVIDERS: PCP Physician Assistant; Visit Provider Physician Assistant
DX: R60.0 Localized edema (principal); E66.01 Morbid (severe) obesity due to excess calories; I83.90 Asymptomatic varicose veins of unspecified lower extremity; M76.60 Achilles tendinitis, unspecified leg; M54.6 Pain in thoracic spine

== ENCOUNTER → 2025-07-01 14:23 | Outpatient (BNVA) | payer OTHER, SELFPAY | PROVIDERS: PCP Physician Assistant; Visit Provider Physician Assistant | DX: R60.0 Localized edema (principal); E66.01 Morbid (severe) obesity due to excess calories; Z68.41 Body mass index [BMI] 40.0-44.9, adult; I83.90 Asymptomatic varicose veins of unspecified lower extremity; M76.61 Achilles tendinitis, right leg; M54.6 Pain in thoracic spine | CPT/HCPCS: 99212 ==

== ENCOUNTER 2025-08-30 15:30 | Outpatient (AMB) | payer OTHER, SELFPAY ==
[2025-08-30 15:31] VITALS: BMI 41.6
--- NOTE | 2025-08-30 15:31 | MHC.OFFVIS ---
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 Pt has Hx of bilateral LE ablations w/ in 2019. Pt states she is still having VV bilateral LE. 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 Complaints include pain over varicosities, swelling of lower extremities, cramping, fatigue, and heaviness of the lower extremities. It has been affecting there daily activities including walking. It is noted more so in right leg. She is concerned about multiple spider telangiectasias more so on the lateral aspects of her legs. Patient reports prior venous interventions by Dr. Lin in 2019. Unclear what was done. Patient denies any history of DVT/ PE. Patient denies any history of phlebitis. Trial of compression includes - [id number] They now present for vascular evaluation regarding their varicose veins. [facility] Medical History Varicose vein of leg , ectopic, tubal Surgical History History of salpingectomy Family History Maternal Grandmother Uterine cancer Maternal Grandfather Prostate cancer metastatic to bone Social History Household Members: None Housing: Apartment Do you presently have visiting nurse or other home services: No Alcohol intake: never Patient Tobacco Use Status: Never used Tobacco service: No Current occupational status: employed Sexual orientation: Straight/Heterosexual Gender identity: Female Female Reproductive History Menstrual Age of Menarche: 12 Review of Systems Const Reports as per HPI ENT Reports no additional complaints Card Denies chest pain, Denies chest pain at rest and Denies chest pain with activity Resp Denies chest congestion and Denies cough GI Reports no additional complaints Musc Details: pain over varicosities, aching of lower extremities, swelling, cramping, heaviness and tiredness, itching Denies abnormal gait Skin/Breast Reports pruritus and Denies wounds Neuro Reports no additional complaints and Denies abnormal gait Psych Denies no additional complaints Physical Exam Vital Signs: BMI result Body Mass Index 41.6 Const General: cooperative, healthy appearing and comfortable Orientation/consciousness: oriented to person, oriented to place and oriented to time Neck Carotids: no bruits Chest Chest palpation & inspection: normal inspection of the chest and normal palpation of entire chest wall Resp Effort & Inspection: normal respiratory effort and able to speak in complete sentences Cardio Rate: regular rate Heart sounds: S1 normal heart sound present and S2 normal heart sound present Peripheral pulses: Peripheral pulses 2+ throughout GI Inspection: Yes normal to inspection Skin Other: +2 edema, multiple spider telangiectasias CEAP Classification C4 - skin color changes Ep - Etiology Primary As - superficial veins P - reflux General skin exam: dry skin Neuro General: oriented to person, oriented to place and oriented to time Extrem Right lower extremity: full ROM, normal capillary refill and edema Left lower extremity: full ROM, normal capillary refill and edema Psych Mental Status: mental status grossly normal Assessment & Plan Assessment & Plan (1) Varicose veins of right lower extremity with inflammation: Code(s): I83.11 - Varicose veins of right lower extremity with inflammation Category: Medical Plan: In short, the patient has evidence of venous insufficiency. I have discussed the pathophysiology with the patient. In addition I have provided informational material regarding venous disease to the patient. We have discussed conservative measures including compression, elevation, and exercise. I have also provided a handout regarding appropriate use of compression stockings and where to purchase good compression stockings as well. I have taken the liberty of ordering venous insufficiency testing with the patient. They will follow up with me after testing. The patient had an opportunity to ask questions regarding the treatment plan. All questions were answered. Imaging studies, laboratory studies and physical exam results were discussed and reviewed in detail. No major barriers to understanding were identified. The patient expressed understanding and agreement with the above treatment plan. The patient is aware they should contact our office by phone for worsening of the current condition or the appearance of new symptoms. Thank you for allowing me to participate in the vascular care of this patient. If you have any questions or concerns regarding the treatment for the above condition please do not hesitate to contact me. The office telephone contact is [phone]. This note is constructed using voice recognition software. While every effort has been made to ensure accuracy, investigator cash shortage errors may have been included. Thank you for allowing me to participate in the care of your patient. Yours sincerely, Sd Burrows MD, FACS, R.P.V.I. Orders: Orders US venous duplex LE BI Today I83.11 - Varicose veins of right lower extremity with inflammation Coding Level of Care Code New Pt Level 4 (98578) Diagnoses Varicose veins of right lower extremity with inflammation I83.11
--- OUTSIDE RECORDS SUMMARY | 2025-08-30 18:14 | XMS_ITS | Clinical Summary ---
Author Organization [facility] Address [address] [place] [address] Care Team Providers Care Hydroelectric Station Operator Name Role Phone Edgar Choudhury MD Primary Care Provider [phone] Social History Tobacco Use Types Packs/Day Years [...] Cervical Cancer Screening: P ap Smear 2012 HPV Vaccines (1 - 3-dose SCD M series) 2018 Depression Screening 10/27/2024 COVID-19 Vaccine ( - 2023-2 5 season) 2025 Influenza Vaccine (#1) 2025 RSV Immunization Adult Patie nts (1 - 1-dose 75+ series) 2066 HIB Vaccines Aged Out No longer eligi [...] age to complete this topic Care Teams Hydroelectric Station Operator Relationship Specialty Start Date End Date Edgar Choudhury MD [address] [place] [address] Dr Joshua MA PCP - General Internal Medicine 03/27/18
--- OUTSIDE RECORDS SUMMARY | 2025-08-30 18:14 | XMS_ITS | Encounter Summary ---
Author Organization [employer] Address [address] [facility] 7t [place] [address] Care Team Providers Care Mangle Catcher Name Role Phone Unavailable Primary Care Provider Unavailabl e Reason for Visit * Reason Onset Date Comments work note fax 04/07/2024 Encounter Details Date Type Department Care Team ([facility] st Contact Info) Description 04/07/2024 Telephone [facility] CHC ADULT DENTAL [address] [place], [place] [phone] Roberto Cas[place], [place] [address] [place], [place] [phone] work note fax Social History Tobacco Use [...] to work if possibel. She works at [employer]. Fax number [phone] * Telephone Encounter - Una Rand - [...]
--- OUTSIDE RECORDS SUMMARY | 2025-08-30 18:14 | XMS_ITS | Clinical Summary ---
Author Organization [facility] Address [address] [place] [address] Phone Care Team Providers Care Criminal Investigator Customs Name Role Phone Lizeth Chavez NP Primary [...] complete this topic Procedures * Due to [place] [employer] law, this organization might not be sharing sensitive test results. Procedure Name Priority Date/Time Associated Diagnosis Comments CHLAMYDIA AND GONORRHEA, AMPLIFIED Routine 01/14/2011 1:12 PM EDT from Last 3 Months or Most Recently Relevant to Health Maintenance Results * Due to [place] [employer] law, this organization might not be sharing sensitive test results. * Chlamydia and Gonorrhoea, Amplified (01/14/2011 1:12 PM EDT) URINE CHLAMYDIA AMP PROBE NEGATIVE [facility] Comment: NO CHLAMYDIA TRACHOMATIS RNA DETECTED IN THIS PATIENT'S SAMPLE. (REFERENCE RANGE/NORMAL VALUE: NOT DETECTED) URINE GC AMP PROBE NEGATIVE [facility] Comment: NO NEISSERIA GONORRHOEAE RNA DETECTED IN THIS PATIENT'S SAMPLE. (REFERENCE RANGE/NORMAL VALUE: NOT DETECTED) NOTE: THIS TEST USES INORGANIC CHEMISTRY PROFESSOR MEDIATED AMPLIFICATION METHOD TO DETECT rRNA FROM [...] OTHER AGENTS. 01/14/2011 1:12 PM EDT Narrative [facility] - 01/14/2011 1:12 PM EDT URINE CHLAMYDIA GC AMP PROBE us Lizeth Chavez NP LAB MICROBIOLOGY - GENERAL ORD ERABLES Final Result [facility] [address] [place] [address], from Last 3 Months or Most Recently Relevant to Health Maintenance Care Teams Criminal Investigator Customs Relationship Specialty Start Date End Date Lizeth Chavez NP PCP - General 06/06/17
--- OUTSIDE RECORDS SUMMARY | 2025-08-30 18:14 | XMS_ITS | Clinical Summary ---
Author Organization [employer] Address [address] [facility] 7t [place] [address] Care Team Providers Care Industrial Technologist Name Role Phone Unavailable Primary Care Provider Unavailabl e Allergies No known active allergies Medications desogestrel-ethi nyl estradiol (Azurette) 0.15-0.02/0.01 MG (16/03) tablet Take 1 tablet by mouth at bed time. Active Encounters Date Type Department Care Team Description 08/18/2025 Telephone [facility] ADULT DENTAL [address] [place] [address] Anup Weems DMD help with leave in retainer from Last 3 Months Social History Tobacco [...] Most Recently Relevant to Health Maintenance [place] [facility] [place] PARTIAL (MEDICAID)
--- OUTSIDE RECORDS SUMMARY | 2025-08-30 18:14 | XMS_ITS | Encounter Summary ---
Author Organization [facility] Address [address] [place] [address] Phone Care Team Providers Care Wood Block Artist Name Role Phone Lizeth Chavez NP Primary Care Provider Unavail able Encounter Details Date Type Department Care Team (Late st Contact Info) Description 01/15/2011 Documentation [facility] [address] [place] [address] Family Medicine, Physician [facility] [address] [place], [place] [phone] Social History Tobacco Use Types Packs/Day Years [...] on filedocumented in this encounter Care Teams Wood Block Artist Relationship Specialty Start Date End Date Liezth Chavez NP PCP - General 06/06/17 documented as of this encounter
--- OUTSIDE RECORDS SUMMARY | 2025-08-30 18:14 | XMS_ITS | Encounter Summary ---
Author Organization [employer] Address [address] [facility] 7t [place] [address] Care Team Providers Care Small Business Banking Officer Name Role Phone Unavailable Primary Care Provider Unavailabl e Reason for Visit * Reason Onset Date Comments help with leave in retainer 08/18/2025 Encounter Details Date Type Department Care Team ([facility] st Contact Info) Description 08/18/2025 Telephone [facility] CHC ADULT DENTAL [address] [place], [place] [phone] Anup Weems, DMD [address] [place], [place] [phone] help with leave in retainer Social History Tobacco Use Types Packs/Day Years [...] * Telephone Encounter - Una Rand - 08/18/2025 12:11 PM EDT Patient has a permanent leave in retainer that has become dislodged on one side. Ortho only sees pediatric patients. She is having pain due to appliance poking into her cheek and now on her inner gum. She is looking for it to be recemented. Is this an appointment that can be seen as dental emergency or is it something she must see and vibration technician for? She has called other offices and hasn't had bartolome blackwell DR documented in this encounter Plan of Treatment Not on file documented as of this encounter Visit Diagnoses Not on filedocumented in this encounter
--- OUTSIDE RECORDS SUMMARY | 2025-08-30 18:14 | XMS_ITS | Encounter Summary ---
Author Organization [employer] Address [address] [facility] 7t [place] [address] Care Team Providers Care Computer Specialist Name Role Phone Unavailable Primary Care Provider Unavailabl e Encounter Details Date Type Department Care Team (Latest Contact Info) Description 02/27/2021 Abstract [facility] CONVERSIONS Dental, Provider, DDS Social History [...]
--- OUTSIDE RECORDS SUMMARY | 2025-08-30 18:14 | XMS_ITS | Encounter Summary ---
Author Organization [facility] Address [address] [place] [address] Phone Care Team Providers Care .Net Programmer Name Role Phone Lizeth Chavez NP Primary Care Provider Unavail able Encounter Details Date Type Department Care Team (Late st Contact Info) Description 06/12/2017 Conversion Encounter [facility] - [address] [address] Social History Tobacco Use Types Packs/Day Years [...] on filedocumented in this encounter Care Teams .Net Programmer Relationship Specialty Start Date End Date Lizeth Chavez NP PCP - General 06/06/17 documented as of this encounter
--- OUTSIDE RECORDS SUMMARY | 2025-08-30 18:14 | XMS_ITS | Encounter Summary ---
Author Organization [facility] Address [address] [place] [address] Phone Care Team Providers Care Mechanical Technician Name Role Phone Lizeth Chavez NP Primary Care Provider Unavail able Encounter Details Date Type Department Care Team (Late st Contact Info) Description 06/02/2012 Documentation [facility] Family Medicine [address] [place] [address] Family Medicine, Physician [facility] [address] [place], [place] [phone] Social History Tobacco Use Types Packs/Day Years [...] on filedocumented in this encounter Care Teams Mechanical Technician Relationship Specialty Start Date End Date Lizeth Chavez NP PCP - General 06/06/17 documented as of this encounter
== END 2025-08-31 09:50 | disposition home or self-care (01) ==
LOC: HO.HVS 15:30
PROVIDERS: PCP Physician Assistant; Visit Provider Surgery Vascular Surgery
DX: I83.11 Varicose veins of right lower extremity with inflammation (principal)
CPT/HCPCS: 99204

== ENCOUNTER → 2025-08-30 15:30 | Outpatient (BNVA) | payer OTHER, SELFPAY | PROVIDERS: PCP Physician Assistant; Visit Provider Surgery Vascular Surgery | DX: I83.11 Varicose veins of right lower extremity with inflammation (principal) | CPT/HCPCS: 99202 ==

== ENCOUNTER 2025-10-19 10:35 | Outpatient (REF) | payer OTHER, SELFPAY ==
--- OUTSIDE RECORDS SUMMARY | 2025-10-19 10:43 | XMS_ITS | Encounter Summary ---
Author Organization [employer] Address [address] [facility] [address] [place] [address] Care Team Providers Care Javascript Programmer Name Role Phone Unavailable Primary Care Provider Unavailabl e Reason for Visit * Reason Onset Date Comments help with leave in retainer 08/18/2025 Encounter Details Date Type Department Care Team ([facility] st Contact Info) Description 08/18/2025 Telephone [facility] CHC ADULT DENTAL [address] [place], [place] [phone] Anup Weems, DMD [address] [place], [place] [phone] help with leave in retainer Social History [...] is it something she must see and furnace builder for? She has called other offices and hasn't had bartolome blackwell DR documented in this encounter Plan of Treatment Not on file documented as of this encounter Visit Diagnoses Not on filedocumented in this encounter
--- OUTSIDE RECORDS SUMMARY | 2025-10-19 10:43 | XMS_ITS | Clinical Summary ---
Author Organization [facility] Address [address] [place] [phone] Phone Care Team Providers Care Ground Hand Name Role Phone Lizeth Chavez NP Primary [...] complete this topic Procedures * Due to [place] [employer] law, this organization might not be sharing sensitive test results. Procedure Name Priority Date/Time Associated Diagnosis Comments CHLAMYDIA AND GONORRHEA, AMPLIFIED Routine 01/14/2011 1:12 PM EDT from Last 3 Months or Most Recently Relevant to Health Maintenance Results * Due to [place] [employer] law, this organization might not be sharing sensitive test results. * Chlamydia and Gonorrhoea, Amplified (01/14/2011 1:12 PM EDT) URINE CHLAMYDIA AMP PROBE NEGATIVE [facility] Comment: NO CHLAMYDIA TRACHOMATIS RNA DETECTED IN THIS PATIENT'S SAMPLE. (REFERENCE RANGE/NORMAL VALUE: NOT DETECTED) URINE GC AMP PROBE NEGATIVE [facility] Comment: NO NEISSERIA GONORRHOEAE RNA DETECTED IN THIS PATIENT'S SAMPLE. (REFERENCE RANGE/NORMAL VALUE: NOT DETECTED) NOTE: THIS TEST USES THREE DIMENSIONAL ART INSTRUCTOR MEDIATED AMPLIFICATION METHOD TO DETECT rRNA FROM [...] OTHER AGENTS. 01/14/2011 1:12 PM EDT Narrative [facility] - 01/14/2011 1:12 PM EDT URINE CHLAMYDIA GC AMP PROBE us Lizeth Chavez NP LAB MICROBIOLOGY - GENERAL ORD ERABLES Final Result [facility] [address] [place] [address], from Last 3 Months or Most Recently Relevant to Health Maintenance Care Teams Ground Hand Relationship Specialty Start Date End Date Lizeth Chavez NP PCP - General 06/06/17
--- OUTSIDE RECORDS SUMMARY | 2025-10-19 10:43 | XMS_ITS | Encounter Summary ---
Author Organization [employer] Address [address] [facility] 7t [place] [address] Care Team Providers Care Supervisor Mail Carriers Name Role Phone Unavailable Primary Care Provider Unavailabl e Reason for Visit * Reason Onset Date Comments work note fax 04/07/2024 Encounter Details Date Type Department Care Team ([facility] st Contact Info) Description 04/07/2024 Telephone [facility] ADULT DENTAL [address] [place], [place] [phone] Roberto [place], [place] [address] [place], [place] [phone] work note fax Social History Tobacco Use [...] to work if possibel. She works at [employer]. Fax number [phone] * Telephone Encounter - Una Rand - [...]
--- OUTSIDE RECORDS SUMMARY | 2025-10-19 10:43 | XMS_ITS | Clinical Summary ---
Author Organization [facility] Address [address] [place] [address] Care Team Providers Care Rn Clinical Appeals Name Role Phone Edgar Choudhury MD Primary Care Provider [phone] Social History Tobacco Use Types Packs/Day Years [...] Depression Screening 10/27/2024 COVID-19 Vaccine ( - 2024-2 6 season) 2025 Influenza Vaccine (#1) 2025 RSV [...] age to complete this topic Care Teams Rn Clinical Appeals Relationship Specialty Start Date End Date Edgar Choudhury MD [address] [place] [address] Dr Joshua MA PCP - General Internal Medicine 03/27/18
--- OUTSIDE RECORDS SUMMARY | 2025-10-19 10:43 | XMS_ITS | Clinical Summary ---
Author Organization [employer] Address [address] [facility] [address]t [place] [address] Care Team Providers Care Washer Carcass Name Role Phone Unavailable Primary Care Provider Unavailabl e Allergies No known active allergies Medications desogestrel-ethi nyl estradiol (Azurette) 0.15-0.02/0.01 MG (16/03) tablet Take 1 tablet by mouth at bed time. Active Encounters Date Type Department Care Team Description 08/18/2025 Telephone [facility] ADULT DENTAL [address] [place] [address] Anup Weems DMD help with leave in [...] Most Recently Relevant to Health Maintenance Insurance [place] [facility] [place] (MEDICAID)
--- OUTSIDE RECORDS SUMMARY | 2025-10-19 10:43 | XMS_ITS | Encounter Summary ---
Author Organization [facility] Address [address] [place] [address] Phone Care Team Providers Care Sanitor Name Role Phone Lizeth Chavez NP Primary Care Provider Unavail able Encounter Details Date Type Department Care Team (Late st Contact Info) Description 06/02/2012 Documentation [facility] Family Medicine [address] [place] [address] Family Medicine, Physician [facility] [address] [place], [place] [address] Social History Tobacco Use Types Packs/Day Years [...] on filedocumented in this encounter Care Teams Sanitor Relationship Specialty Start Date End Date Lizeth Chavez NP PCP - General 06/06/17 documented as of this encounter
--- OUTSIDE RECORDS SUMMARY | 2025-10-19 10:43 | XMS_ITS | Encounter Summary ---
Author Organization [facility] Address [address] [place] [address] Phone Care Team Providers Care Aba Tutor Name Role Phone Lizeth Chavez NP Primary Care Provider Unavail able Encounter Details Date Type Department Care Team (Late st Contact Info) Description 06/12/2017 Conversion Encounter [facility] - [address] [address] Social History Tobacco Use Types Packs/Day Years [...] on filedocumented in this encounter Care Teams Aba Tutor Relationship Specialty Start Date End Date Lizeth Chavez NP PCP - General 06/06/17 documented as of this encounter
--- OUTSIDE RECORDS SUMMARY | 2025-10-19 10:43 | XMS_ITS | Encounter Summary ---
Author Organization [facility] Address [address] [place] [address] Phone Care Team Providers Care Cardiopulmonary Specialist Name Role Phone Lizeth Chavez NP Primary Care Provider Unavail able Encounter Details Date Type Department Care Team (Late st Contact Info) Description 01/15/2011 Documentation [facility] [place] [address] [place] [address] Family Medicine, Physician [facility] [address] [place], [place] [phone] Social History Tobacco Use Types Packs/Day Years [...] on filedocumented in this encounter Care Teams Cardiopulmonary Specialist Relationship Specialty Start Date End Date Lizeth Chavez NP PCP - General 06/06/17 documented as of this encounter
--- OUTSIDE RECORDS SUMMARY | 2025-10-19 10:43 | XMS_ITS | Encounter Summary ---
Author Organization [employer] Address [address] [facility] 7t [place] [address] Care Team Providers Care Web Software Engineer Name Role Phone Unavailable Primary Care Provider Unavailabl e Encounter Details Date Type Department Care Team (Latest Contact Info) Description 02/27/2021 Abstract [facility] CONVERSIONS Dental, Provider, DDS Social History Tobacco [...]
== END 2025-10-19 10:36 | disposition home or self-care (01) ==
LOC: HO.US 10:35
PROVIDERS: PCP Physician Assistant; Visit Provider Surgery Vascular Surgery
DX: I83.11 Varicose veins of right lower extremity with inflammation (principal)
CPT/HCPCS: 93970

== ENCOUNTER → 2025-10-19 10:36 | Outpatient (BNV) | payer OTHER, SELFPAY | PROVIDERS: PCP Physician Assistant; Visit Provider Radiology Diagnostic Radiology | DX: I83.11 Varicose veins of right lower extremity with inflammation (principal) | CPT/HCPCS: 93970 ==